=== PATIENT | female | born 1935 | race Caucasian/White ===

== ENCOUNTER 2022-09-06 14:32 | Observation (INO) | payer OTHER ==
--- OUTSIDE RECORDS SUMMARY | 2022-09-06 14:35 | XMS REPORT | Continuity of Care Document ---
:1935 Author Organization [facility] t Address 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 00:00: Hospita disease of disease of 00 l table mountain table mountain coronary 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 Bradycardi Bradycardi Disease Active M ethodi a a 01-07 st 00:00: Hospita 00 l Allergies, Adverse Reactions, Alerts Allergy Allergy Status Severity Reaction(s) Onset Inactive Treating Comm ents Source Name Type Date Date Clinician Amlodipi Propensi Active Swelling Meth lore ne ty to 01-07 st adverse 00:00: Hospita reaction 00 l s to drug Furosemi Propensi Active Other (See cramps Me thodi de ty to Comments) 01-07 st adverse 00:00: Hospita reaction 00 l s to drug Ezetimib Propensi Active Other (See Joint Me thodi e-Simvas ty to Comments) 01-[address] tatin adverse 00:00: cramping Hospita reaction 00 l s to drug Ezetimib Propensi Active Other (See Leg Me thodi e ty to Comments) 3-[address] adverse 00:00: Hospita reaction 00 l s to drug Simvasta Propensi Active Other (See Leg Me thodi tin ty to Comments) 3-[address] adverse 00:00: Hospita reaction 00 l s to drug Family History Family Member Diagnosis Comments Start Date Stop Date Source Natural brother Diabetes [facility] Natural father Heart attack [facility] father Heart disease [facility] Maternal grandfather No Known Problems [facility] Maternal grandmother No Known Problems [facility] Natural mother No Known Problems Met [facility] Paternal grandfather No Known Problems [facility] Paternal grandmother No Known Problems [facility] Natural sister Diabetes [facility] son Heart failure [facility] son Hyperlipidemia [facility] son Hypertension [facility] son Sleep apnea [facility] Social History Social Habit Start Date Stop Date Quantity Comments Source Tobacco use and 2022-08-12 2022-08-12 Smokeless tobacco [facility] exposure 00:00:00 00:00:00 non-user Hospital Alcohol intake 2022-08-12 2022-08-12 Lifetime [employer] 00:00:00 00:00:00 non-drinker Hospital (finding) Sex Ass[birth year] At [birth year] [employer] 00:00:00 00:00:00 Hospital Smoking Status Start Date Stop Date Source Never smoked tobacco [employer] ospital Medications Ordered Filled Start Stop Current Ordering Indication Dosage Frequency Signature Comments Components Source Medication Medication Date Date Medication? Clinician (SIG) Name Name doxazosin 2021-10 Yes [id number] 2mg QD Take 1 Me thodi (CARDURA) 2 1-07 tablet (2 st MG tablet 00:00: mg total) Hos lizzy 00 by mouth l nightly. vit 2021-10- No 1{capsu Q.5D Take 1 Methodi C/E/Zn/danuta 10-12 le} capsule by s t r/lutein/ze 14:15: 00:00 mouth 2 Ho spita axan 21 :00 (two) l (PRESERVISI times a ON AREDS-2 day. ORAL) ZINC 2021-10- No 1{tbl} QD Take 1 Methodi ACETATE 10-[address] ORAL 14:15: 00:00 mouth Hospita 21 :00 daily. l ferrous 2021-10- No 1{tbl} QD Take 1 Metho di fumarate 10-[address] 324 mg (106 14:15: 00:00 mouth [facility] mg iron) 14 :00 daily. l tablet calcium 2021-10- No 1{tbl} Q.5D Take 1 Metho di carb,gluc/m 10-[address] ag ox,gluc 14:15: 00:00 mouth 2 Hos lizzy (CALCIUM 10 :00 (two) l MAGNESIUM times a ORAL) day. acetaminoph 2021-10- No 500mg Take 500 Methodi en 10-[address] (TYLENOL) 14:15: 00:00 mouth as Hos lizzy 500 MG 07 :00 needed for l tablet mild pain. nitroglycer 2021-[address] 0.4 M ethodi in 10-[address] (NITROSTAT) 13:57: the tongue Hospita 0.4 MG SL 43 every 5 l tablet (five) minutes as needed. Not to exceed 3 doses in 15min. levothyroxi 2021-10 Yes 150ug QD Take 150 M ethodi ne 10-[address] (SYNTHROID) 13:57: mouth Hospi ta 150 mcg 43 every l tablet morning. dapaglifloz 2021-10 Yes QD Take by Met dodson in 10-[address] (Farxiga) 13:57: daily. Hospit a 10 mg 43 l tablet iron 2021-10 Yes Take by Methodi fum/vit 10-[address] C/ascorbate 13:57: Hospit a sod (IRON 43 l PLUS VITAMIN C ORAL) torsemide 2021-10 Yes [id number] 40mg QD Take 40 mg Methodi 40 mg 10-[address] tablet 00:00: daily. Hospita 00 Takes l 1/2(10) tablet torsemide 2021-10- No [id number] 20mg Q.5D Take 1 M ethodi (DEMADEX) 10-12 tablet (20 st 20 MG 00:00: 00:00 mg total) Hospit a tablet 00 :00 by mouth 2 l (two) times a day. Takes 1/2(10) tablet olmesartan No 40mg QD Take 40 mg Methodi (BENICAR) 6-11 17-[address] 40 MG 17:07: 00:00 daily. Hospita tablet 15 :00 l olmesartan Yes TAKE 1 Metho di (BENICAR) 03-[address] 40 MG 00:00: MOUTH ONCE Hospit a tablet 00 DAILY l doxazosin 2021- No [id number] TAKE 1 M ethodi (CARDURA) 2 5-20 -[address] MG tablet 00:00: 00:00 MOUTH ONCE H ospita 00 :00 NIGHTLY l BEFORE BED hydrALAZINE Yes [id number] TAKE 1 Methodi (APRESOLINE 4-[address] ) 50 MG 00:00: MOUTH 3 Hospita tablet 00 TIMES l DAILY rosuvastati Yes [id number] 5mg Q.5W Take 1 Methodi n (CRESTOR) 3-31 tablet (5 st 5 mg tablet 00:00: mg total) H ospita 00 by mouth 2 l (two) times a week. aspirin No 81mg QD Take 81 mg Met hodi (ECOTRIN) 01-[address] 81 MG 12:14: 00:00 daily. Hospita enteric 34 :00 l coated tablet torsemide No 10mg Take 10 mg M ethodi (DEMADEX) 01-[address] 20 MG 12:14: 00:00 take as Hospita tablet 34 :00 directed. l Takes 1/2(10) tablet clonIDINE No .1mg Q4H Take 0.1 Met hodi (CATAPRES) 01-07-[address] 0.1 MG 12:14: 00:00 mouth Hospita tablet 34 :00 every 4 l (four) hours as needed. For SBP>180 doxazosin 2021- No 2mg QD Take 2 mg Me thodi (CARDURA) 2 01-07- by mouth st MG tablet 12:14: 00:00 nightly. Hos lizzy 34 :00 l rosuvastati 2021- No 5mg Q.5W Take 5 mg Methodi n (CRESTOR) 01-07 by mouth 2 s t 5 mg tablet 12:14: 00:00 (two) [facility] 34 :00 times a l week. hydrALAZINE 2021- No 50mg Q.[id number] Take 50 mg Methodi (APRESOLINE 01-07 [id number] by mouth 3 st ) 50 MG 12:14: 00:00 3D (three) Hospit a tablet 34 :00 times a l day. iron,carb/v 2021- No 1{tbl} QD Take 1 M ethodi it C/vit 01-[address] B12/folic 11:51: 00:00 mouth Hospit a (IRON 100 12 :00 daily. l PLUS ORAL) levothyroxi 2021- No 125ug QD Take 125 Methodi ne 01-[address] (SYNTHROID) 11:51: 00:00 mouth [facility] 125 mcg 12 :00 daily. l tablet coenzyme No 200mg QD Take 200 Met hodi Q10 200 mg 01-[address] capsule 11:51: 00:00 mouth Hospita 12 :00 daily. l ascorbic 2021- No 1000mg QD Take 1,000 Methodi acid, 01-[address] vitamin C, 11:51: 00:00 mouth Hospi ta (VITAMIN C) 12 :00 daily. l 1000 MG tablet ibuprofen 2021- No 200mg Q6H Take 200 Me thodi (ADVIL) 200 01-[address] MG tablet 11:51: 00:00 mouth Hospit a 12 :00 every 6 l (six) hours as needed. aspirin Yes [id number] 81mg QD Take 1 Met hodi (ECOTRIN) - tablet (81 st 81 MG 00:00: mg total) Hospita enteric 00 by mouth l coated daily. tablet clonIDINE Yes [id number] .1mg Q4H Take 1 Me thodi (CATAPRES) -[address] 0.1 MG 00:00: (0.1 mg Hospita tablet 00 total) by l mouth every 4 (four) hours as needed (htn). For SBP>180 torsemide No [id number] 10mg Take 0.5 Methodi (DEMADEX) 01-[address] 20 MG 00:00: 00:00 (10 mg Hospita tablet 00 :00 total) by l mouth take as directed (s). Takes 1/2(10) tablet doxazosin No [id number] 2mg QD Take 1 M ethodi (CARDURA) 2 01-07 05-20 tablet (2 st MG tablet 00:00: 00:00 mg total) Ho spita 00 :00 by mouth l nightly. hydrALAZINE [id number] 50mg Q.[id number] Take 1 Methodi (APRESOLINE 01-07 [id number] tablet (50 st ) 50 MG 00:00: 00:00 3D mg total) [facility] tablet 00 :00 by mouth 3 l (three) times a day. Vital Signs Vital Name Observation Time Observation Value Comments Source Systolic blood 2022-08-12 18:50:00 175 mm[Hg] [facility] pressure Diastolic blood 2022-08-12 18:50:00 66 mm[Hg] [facility] pressure Heart rate 2022-08-12 18:50:00 98 /min [facility] Body height 2022-08-12 18:50:00 165.1 cm [facility] Body weight 2022-08-12 18:50:00 71.668 kg [facility] BMI 2022-08-12 18:50:00 26.29 kg/m2 [facility] Oxygen saturation in 2022-08-12 18:50:00 98 /min [facility] Arterial blood by Pulse oximetry Respiratory rate 2022-01-07 16:51:00 12 /min [facility] Procedures Procedure Date / Time Performed Performing Clinician [facility] e ECG 12-LEAD 2022-01-07 16:55:00 John Blackburn [facility] Plan of Care Planned Activity Planned Date Details Comments Source Future Scheduled 2022-08-18 65+ PNEUMOCOCCAL [facility] Test 15:02:15 VACCINE (1 - PCV) [code = 65+ PNEUMOCOCCAL VACCINE (1 - PCV)] Future Scheduled 2022-08-18 SHINGLES VACCINES (1 Met [facility] Test 15:02:15 of 2) [code = SHINGLES VACCINES (1 of 2)] Future Scheduled 2022-08-18 INFLUENZA VACCINE Method [facility] Test 15:02:15 [code = INFLUENZA VACCINE] Future Scheduled 2022-08-18 HEPATITIS B VACCINES Met [facility] Test 15:02:15 (1 of 3 - 3-dose series) [code = HEPATITIS B VACCINES (1 of 3 - 3-dose series)] Future Scheduled 2022-08-18 COVID-19 VACCINE (#1) [facility] Test 15:02:15 [code = COVID-19 VACCINE (#1)] Encounters Start End Encounter Admission Attending Care Care Encounter Source Date/Time Date/Time Type Type Clinicians Facility Department ID 2022-08-18 2022-08-18 Refill [place], 1.2.840.1 [id number] Methodi 00:00:00 00:00:[address] 3.430.2.7 Hospit a .3.567705 l .8 2022-08-18 2022-08-18 Reflenore Arzate 1.2.840.1 [id number] Methodi 00:00:00 00:00:00 Jackelyn Islas [address] 3.430.2.7 Hospit a .3.052978 l .8 2022-08-13 2022-08-13 Telephone Alexey, 1.2.840.1 [id number] Methodi 00:00:00 00:00:00 John Prado 17176.1.[address] 3.430.2.7 Hospit a .3.168553 l .8 2022-08-12 2022-08-12 Office [place], 1.2.840.1 [id number] 2100 [id number] Methodi 13:40:00 14:28:32 Visit John Prado 27312.1.[address] 3.430.2.7 Hospit a .3.292716 l .8 2022-08-12 2022-08-12 Travel 1.2.840.1 1.2.105.080 [id number] Methodi 00:00:00 00:00:[address] 3.430.2.7 0.2.7.3.698 Ho spita .3.680368 084.8 l .8 2022-08-12 2022-08-12 Outpatient YOUNIS, [facility] [id number] 00:00:00 00:00:[address] JOHN [address] 2022-07-14 2022-07-14 Travel 1.2.840.1 1.2.804.233 [id number] Methodi 00:00:00 00:00:[address] 3.430.2.7 0.2.7.3.698 Ho spita .3.191730 084.8 l .8 2022-03-13 2022-03-13 Refill Younis, 1.2.840.1 [id number] 2099 [id number] Methodi 00:00:00 00:00:00 John Prado 72552.1.[address] 3.430.2.7 Hospit a .3.032247 l .8 2022-02-28 2022-02-28 Refill Younis, 1.2.840.1 [id number] 2099 [id number] Methodi 00:00:00 00:00:00 John Prado 30960.1.[address] 3.430.2.7 Hospit a .3.196149 l .8 2022-01-20 2022-01-20 Refill Younis, 1.2.840.1 [id number] Methodi 00:00:00 00:00:00 John Prado 61351.1.[address] 3.430.2.7 Hospit a .3.932386 l .8 2022-01-07 2022-01-07 Office Younis, 1.2.840.1 [id number] Methodi 10:50:00 12:23:19 Visit John Prado 69495.1.[address] 3.430.2.7 Hospit a .3.146495 l .8 2022-01-07 2022-01-07 [facility] [id number] 00:00:00 00:00:00 JOHN [address] 2022-01-06 2022-01-06 Travel 1.2.840.1 1.2.856.602 [id number] Methodi 00:00:00 00:00:[address] 3.430.2.7 0.2.7.3.698 [facility] .3.946748 084.8 l .8 2021-05-09 2021-05-09 Outpatient [facility] [id number] 00:00:00 00:00:00 JOHN [address] Results This patient has no known results.
[2022-09-06 15:05] LABS: Absolute Lymphocytes (CBC) 1.3 K/uL (0.7-4.9); Hematocrit 33.5 % (36.0-45.0); Lymphocytes % 12.6 % (15.3-44.8); MCV 80.7 fL (80-100); RBC Red Blood Cell Count 4.15 M/uL (3.86-4.86)
[2022-09-06 15:23] LABS: Magnesium 2.2 mg/dL (1.8-2.4); Potassium 4.5 mmol/L (3.5-5.1); Troponin High Sensitivity 32.8 pg/mL (<58.9)
--- NOTE | 2022-09-06 15:36 | RAD REPORT ---
EXAM DESCRIPTION: RAD - Chest Single View - 09/06/2022 3:13 pm CLINICAL HISTORY: generalized weakness COMPARISON: Chest Pa And Lat (2 Views) dated 09/12/2019; Chest Pa And Lat (2 Views) dated 02/23/2019; CHEST PA AND LAT 2 VIEW dated 08/26/2010; CHEST PA AND LAT 2 VIEW dated 03/10/2007 FINDINGS: Lines: None. Lungs: No evidence of edema or pneumonia. Pleural: No significant pleural effusions or pneumothorax. Cardiac: The heart size is within normal limits. Mediastinum: Within normal limits. Bones: No acute fractures. Sternotomy. Other: None IMPRESSION: No acute cardiopulmonary disease.
--- NOTE | 2022-09-06 15:36 | RAD REPORT ---
EXAM DESCRIPTION: RAD - Knee Left 2 View - 09/06/2022 3:13 pm CLINICAL HISTORY: Swelling COMPARISON: No comparisons FINDINGS/IMPRESSION: No acute fracture. No malalignment. Moderate medial compartment narrowing. Mild patellofemoral compartment spurring. Soft tissue swelling along the ventral aspect of the knee.
--- NOTE | 2022-09-06 15:53 | RAD REPORT ---
EXAM DESCRIPTION: CT - CTHCSPWOC - 09/06/2022 3:42 pm CLINICAL HISTORY: Trauma, head and neck injury. Fall COMPARISON: <Comparisons> TECHNIQUE: Axial 5 mm thick images of the head were obtained. Axial 2 mm thick images of the cervical spine were obtained with sagittal and coronal reconstruction images generated and reviewed. All CT scans are performed using dose optimization technique as appropriate and may include automated exposure control or mA/KV adjustment according to patient size. FINDINGS: CT HEAD WITHOUT CONTRAST: No acute hemorrhage or extra-axial collection is identified.No areas of brain edema or midline shift. Ventriculomegaly. Small remote appearing left cerebellar infarct. Mucous retention cyst in the right maxillary sinus.The calvarium is intact. CT CERVICAL SPINE WITHOUT CONTRAST: No fracture or subluxation.No prevertebral soft tissues swelling is identified. Multilevel degenerati ve changes are present in the spine. Varying degrees of neural foraminal narrowing noted. IMPRESSION: No acute intracranial or cervical spine findings. Ventriculomegaly. This is somewhat out of proportion to the degree of cerebral atrophy. If any prior imaging is available for comparison, this would be helpful. Otherwise, normal pressure hydrocephalus is a consideration.
--- NOTE | 2022-09-06 16:59 | EDPHYS ---
Physician Documentation [facility] Name: Corina Hernandez Age: 86 yrs Sex: Female : 1935 Arrival Date: 09/06/2022 Time: 14:40 Bed 20 Private MD: ED Physician Jared Castellanos HPI: 09/06 15:24 This 86 yrs old Female presents to ER via EMS with complaints of General Weakness. ms3 15:24 Details of fall: The patient fell from an upright position, while standing. Onset: The ms3 symptoms/episode began/occurred 45 minute(s) ago. Associated injuries: The patient sustained left knee, contusion, swelling. Severity of symptoms: At their worst the symptoms were moderate, in the emergency department the symptoms are unchanged. Patient presents via [facility]EMS s/p fall x 2 today. Patient was on the floor for 45 min s/p last fall.. Historical: - Allergies: 15:00 Codeine; jl7 - PMHx: 15:00 Congestive heart failure; Hypothyroidism; Hypertensive disorder; jl7 - PSHx: 15:00 Coronary artery bypass graft; jl7 - Immunization history:: Client reports receiving the 2nd dose of the Covid vaccine. - Social history:: Smoking status: Patient denies any tobacco usage or history of. ROS: 15:24 Constitutional: Negative for fever, and chills. Neck: Negative for injury, pain, and ms3 swelling, Cardiovascular: Negative for chest pain, and palpitations. Respiratory: Negative for shortness of breath, cough, wheezing, and pleuritic chest pain, Abdomen/GI: Negative for abdominal pain, nausea, vomiting, diarrhea, and constipation. 15:24 MS/extremity: Positive for contusion, swelling, tenderness. 15:24 Skin: 15:24 All other systems are negative. Exam: 14:41 ECG was reviewed by the Attending Physician. ms3 15:24 Constitutional: This is a well developed, well nourished patient who is awake, alert, ms3 and in no acute distress. Head/Face: Normocephalic, atraumatic. Neck: Trachea midline, no cervical lymphadenopathy. Supple, full range of motion without nuchal rigidity, or vertebral point tenderness. No Meningismus. Chest/axilla: Normal chest wall appearance and motion. Nontender with no deformity. Cardiovascular: Regular rate and rhythm with a normal S1 and S2. No gallops, murmurs, or rubs. Normal PMI, no JVD. No pulse deficits. Respiratory: Lungs have equal breath sounds bilaterally, clear to auscultation and percussion. No rales, rhonchi or wheezes noted. No increased work of breathing, no retractions or nasal flaring. Abdomen/GI: Soft, non-tender, with normal bowel sounds. No distension or tympany. No guarding or rebound. No evidence of tenderness throughout. Skin: Warm, dry with normal turgor. Normal color with no rashes, no lesions, and no evidence of cellulitis. 15:24 Musculoskeletal/extremity: Extremities: noted in the left knee: contusion, ecchymosis, swelling, tenderness. Vital Signs: 14:49 BP 171 / 62; Pulse 60; Resp 15; Temp 98.3; Pulse Ox 100% ; Weight 71.67 kg (M); Pain jl7 6/10; 15:58 BP 159 / 49; Pulse 58; Resp 16; Pulse Ox 95% ; bp 17:00 BP 169 / 59; Pulse 57; Resp 17; Pulse Ox 97% ; bp 18:00 BP 162 / 50; Pulse 58; Resp 17; Pulse Ox 95% ; bp 20:30 BP 151 / 44; Pulse 62; Resp 17; Pulse Ox 94% on R/A; ha1 MDM: 14:55 Patient medically screened. ms3 15:24 Differential diagnosis: abrasion, closed head injury, contusion, fracture, sprain, ms3 strain. 16:31 Data reviewed: vital signs, nurses notes, lab test result(s), EKG, radiologic studies, ms3 and as a result, I will admit patient. Data interpreted: threat monitoring analyst: rate is 59 beats/min, rhythm is normal sinus rhythm, regular, with no ectopy, Interpretation: normal rate, normal rhythm. Counseling: I had a detailed discussion with the patient and/or guardian regarding: the historical points, exam findings, and any diagnostic results supporting the discharge/admit diagnosis, lab results, radiology results, the need for further work-up and treatment in the hospital. ED course: Discussed case with Dr. Yadav and accepts patient as observation. He would like patient placed on telemetry. Discussed plan with patient and she understands and agrees with plan.. 09/06 14:45 Order name: Basic Metabolic Panel; Complete Time: 15:36 ms3 09/06 14:45 Order name: CBC with Diff; Complete Time: 15:36 ms3 09/06 14:45 Order name: Magnesium; Complete Time: 15:36 ms3 09/06 14:45 Order name: Troponin HS; Complete Time: 15:36 ms3 09/06 16:59 Order name: SARS RAPID ms3 09/06 17:10 Order name: Basic Metabolic Panel EDMS 09/06 14:45 Order name: XRAY Chest (1 view); Complete Time: 16:28 ms3 09/06 17:10 Order name: Basic Metabolic Panel EDMS 09/06 17:10 Order name: CBC with Automated Diff EDMS 09/06 17:10 Order name: CBC with Automated Diff EDMS 09/06 17:20 Order name: SARS RAPID kj1 09/06 17:28 Order name: Urinalysis ms3 09/06 17:31 Order name: SARS-COV-2 Antigen Rapid EDMS 09/06 19:49 Order name: Urine Dipstick-Ancillary EDMS 09/06 14:45 Order name: EKG; Complete Time: 14:45 ms3 09/06 14:45 Order name: Cardiac monitoring; Complete Time: 14:46 ms3 09/06 14:45 Order name: EKG - Nurse/Tech; Complete Time: 14:46 ms3 09/06 14:45 Order name: IV Saline Lock; Complete Time: 14:49 ms3 09/06 14:45 Order name: Labs collected and sent; Complete Time: 14:56 ms3 09/06 14:45 Order name: O2 Per Protocol; Complete Time: 14:46 ms3 09/06 14:45 Order name: O2 Sat Monitoring; Complete Time: 14:46 ms3 09/06 14:49 Order name: XRAY Knee LEFT 2 view; Complete Time: 16:28 jl7 09/06 15:28 Order name: Head C Spine Mpr Wo Con; Complete Time: 16:28 EDMS 09/06 17:10 Order name: Regular EDMS 09/06 17:28 Order name: Urine Dipstick-Ancillary (obtain specimen); Complete Time: 19:50 ms3 EC:41 Rate is 62 beats/min. Rhythm is regular. QRS [place] is Normal. MA interval is normal. QRS ms3 interval is normal. Clinical impression: NSR w/ Non-specific ST/T Changes and with RBBB. Interpreted by me. Reviewed by me. Administered Medications: No medications were administered Disposition Summary: 09/06/22 16:58 Hospitalization Ordered Hospitalization Status: Observation ms3 Provider: Riaz Yadav ms3 Condition: Stable ms3 Problem: new ms3 Symptoms: are unchanged ms3 Bed/Room Type: Standard ms3 Location: Telemetry/MedSurg (observation)(09/06/22 18:55) kj1 Room Assignment: 404(09/06/22 23:18) Diagnosis - Fall on same level, unspecified ms3 - Contusion of left knee ms3 - Muscle weakness (generalized) ms3 - Anemia, unspecified ms3 Forms: - Medication Reconciliation Form ms3 - SBAR form ms3 Signatures: Dispatcher [employer] EDMS Yane Stuart, RN RN cg Mariam Altman RN RN jl7 Jyoti Smith kj1 Jared Castellanos DO DO ms3 Corrections: (The following items were deleted from the chart) 18:15 14:48 Extrem Venous W Compression Reginald+US.RAD.BRZ ordered. EDMS EDMS 18:53 16:58 Telemetry/MedSurg (observation) ms3 kj1 18:53 16:58 ms3 kj1 18:55 18:53 [facility] ER HOLD kj1 kj1 18:55 18:53 kj1 kj1 23:18 18:55 kj1 cg
--- NOTE | 2022-09-06 16:59 | ER ---
Nurse's Notes [facility] Name: Corina Hernandez Age: 86 yrs Sex: Female : 1935 Arrival Date: 09/06/2022 Time: 14:40 Bed 20 Private MD: Diagnosis: Fall on same level, unspecified;Contusion of left knee;Muscle weakness (generalized);Anemia, unspecified Presentation: 09/06 14:49 Chief complaint: EMS states: Toned out for general weakness, pt has fallen twice today jl7 from feeling weak. C/O pain to left knee; swelling and bruising noted. EKG in route noted to be abnormal, pt denies CP, denies shortness of breath. Coronavirus screen: Vaccine status: Patient reports receiving the 2nd dose of the covid vaccine. At this time, the client does not indicate any symptoms associated with coronavirus-19. Ebola Screen: No symptoms or risks identified at this time. Initial Sepsis Screen: Does the patient meet any 2 criteria? No. Patient's initial sepsis screen is negative. Does the patient have a suspected source of infection? No. Patient's initial sepsis screen is negative. Risk Assessment: Do you want to hurt yourself or someone else? Patient reports no desire to harm self or others. Onset of symptoms is unknown. Care prior to arrival: IV initiated. 18 GA, in the right antecubital area, Glucose check: 151. 14:49 Method Of Arrival: EMS: [facility] jl7 14:49 Acuity: MARLINE 2 jl7 Triage Assessment: 15:00 General: Appears in no apparent distress. uncomfortable, Behavior is calm, cooperative, jl7 appropriate for age. Pain: Complains of pain in left knee Pain currently is 6 out of 10 on a pain scale. Neuro: Level of Consciousness is awake, alert, obeys commands, Oriented to person, place, time, situation. Cardiovascular: Patient's skin is warm and dry. Historical: - Allergies: 15:00 Codeine; jl7 - PMHx: 15:00 Congestive heart failure; Hypothyroidism; Hypertensive disorder; jl7 - PSHx: 15:00 Coronary artery bypass graft; jl7 - Immunization history:: Client reports receiving the 2nd dose of the Covid vaccine. - Social history:: Smoking status: Patient denies any tobacco usage or history of. Screenin:01 Abuse screen: Denies threats or abuse. Denies injuries from another. Nutritional bp screening: No deficits noted. Tuberculosis screening: No symptoms or risk factors identified. Fall Risk None identified. Assessment: 16:01 General: SEE TRIAGE NOTE. bp 17:07 Reassessment: PER PCP DR ENRIQUEZ, ADMIT INITIATED. bp 17:54 Reassessment: DAUGHTER: AVANI MCCARTY [phone]. bp 18:00 Reassessment: No changes from previously documented assessment. Patient and/or family bp updated on plan of care and expected duration. Pain level reassessed. ADMIT IN PROCESS. 19:30 General: Appears comfortable, Behavior is calm, cooperative. Pain: Complains of pain in ha1 left knee Pain does not radiate. Pain currently is 4 out of 10 on a pain scale. Quality of pain is described as tender, throbbing, Alleviated by medications, rest. Neuro: Level of Consciousness is awake, alert, obeys commands, Oriented to person, place, time, situation, Reports weakness generalized. Cardiovascular: Capillary refill Patient's skin is warm and dry. Rhythm is sinus rhythm. Respiratory: Airway is patent Trachea midline Respiratory effort is even, unlabored, Respiratory pattern is regular, symmetrical. GI: Abdomen is flat, non-distended, Bowel sounds present X 4 quads. Reports vomiting. : Urine is clear. EENT: No deficits noted. No signs and/or symptoms were reported regarding the EENT system. Derm: Bruising that is on left knee Reports falling at home today. Musculoskeletal: Circulation, motion, and sensation intact. Swelling present in left knee. 20:38 Reassessment: Patient and/or family updated on plan of care and expected duration. Pain ha1 level reassessed. Patient is alert, oriented x 3, equal unlabored respirations, skin warm/dry/pink. pain 5/10. Vital Signs: 14:49 BP 171 / 62; Pulse 60; Resp 15; Temp 98.3; Pulse Ox 100% ; Weight 71.67 kg (M); Pain jl7 6/10; 15:58 BP 159 / 49; Pulse 58; Resp 16; Pulse Ox 95% ; bp 17:00 BP 169 / 59; Pulse 57; Resp 17; Pulse Ox 97% ; bp 18:00 BP 162 / 50; Pulse 58; Resp 17; Pulse Ox 95% ; bp 20:30 BP 151 / 44; Pulse 62; Resp 17; Pulse Ox 94% on R/A; 1 ED Course: 14:40 Patient arrived in ED. ms3 14:40 Jared Castellanos DO is Attending Physician. ms3 14:53 Patient has correct armband on for positive identification. Placed in gown. Bed in low mm9 position. Call light in reach. Side rails up X2. Warm blanket given. insurance claim representative on. Pulse ox on. NIBP on. 14:53 EKG done, by ED staff, reviewed by Jared Castellanos DO. mm9 14:54 Reyes Myles, RN is Primary Nurse. bp 14:56 Basic Metabolic Panel Sent. zm 14:56 CBC with Diff Sent. zm 14:57 Magnesium Sent. zm 14:57 Troponin HS Sent. zm 15:00 Triage completed. jl7 15:00 Arm band placed on right wrist. jl7 15:15 XRAY Chest (1 view) In Process Unspecified. EDMS 15:15 XRAY Knee LEFT 2 view In Process Unspecified. EDMS 15:44 Head C Spine Mpr Wo Con In Process Unspecified. EDMS 16:57 Riaz Enriquez MD is Hospitalizing Provider. ms3 19:50 Urinalysis Sent. ha1 19:51 SARS RAPID Sent. ha1 19:51 CBC with Automated Diff Sent. ha1 19:51 CBC with Automated Diff Sent. ha1 19:51 Basic Metabolic Panel Sent. ha1 19:51 Basic Metabolic Panel Sent. ha1 19:51 SARS RAPID Sent. [facility] 09/07 00:05 No provider procedures requiring assistance completed. Patient admitted, IV remains in ha1 place. [address] in place. put in by EMS. Administered Medications: No medications were administered Medication: 09/06 16:01 VIS not applicable for this client. bp Outcome: 16:58 Decision to Hospitalize by Provider. ms3 09/07 00:23 Admitted to Med/surg accompanied by tech, via wheelchair, room 404, Report called to max Aguilar RN Condition: stable 00:25 Patient left the ED. [facility] Signatures: Dispatcher [employer] EDMS Mariam Altman RN RN jl7 Peltier, Brian, RN RN bp Jared Castellanos DO DO ms3 Myla Walters Heidy, RN RN ha1 Romeo, Karla mm9
[2022-09-06] MEDS ORDERED: ACETAMINOPHEN 500 MG TAB PO PRN (17:07)
[2022-09-06] MEDS ORDERED: ONDANSETRON 4 MG/2 ML VIAL IV PRN (17:07)
[2022-09-06 17:45] LABS: SARS-CoV-2 Antigen Rapid Res Negative (Negative)
[2022-09-06 19:49] LABS: Urine Blood Negative (Negative); Urine Glucose 2+ (Negative); Urine Protein Negative (Negative)
[2022-09-06 20:02] LABS: Specific Gravity 1.015 (1.005-1.030); Urine Bilirubin NEGATIVE (Negative); Urine Blood Negative (Negative); Urine Clarity Clear (Clear); Urine Color Colorless (Yellow); Urine Glucose 4+ (Over) (Negative); Urine Mucus Slight /HPF (None Seen); Urine Protein TRACE (Negative); Urine RBC <5 /HPF (None Seen); Urine Urobilinogen Normal (Normal)
[2022-09-06] MEDS: ENOXAPARIN 30 MG/0.3 ML SQ SCH (21:00)
[2022-09-06] MEDS: cloNIDine HCL 0.1 MG TAB PO SCH (21:00)
[2022-09-06] MEDS ORDERED: ENOXAPARIN 40 MG/0.4 ML SQ SCH (21:00)
[2022-09-06] MEDS: HYDRALAZINE HCL 25 MG TABLET PO SCH (21:00)
[2022-09-06] MEDS ORDERED: cloNIDine HCL 0.1 MG TAB ONE (21:56)
[2022-09-06] MEDS ORDERED: HYDRALAZINE HCL 25 MG TABLET ONE (21:56)
[2022-09-06] MEDS ORDERED: ENOXAPARIN 40 MG/0.4 ML SQ ONE (21:57)
[2022-09-06] MEDS: TORSEMIDE 20 MG TAB PO SCH (22:30)
[2022-09-06] MEDS: ROSUVASTATIN 10 MG TAB PO SCH (22:30)
[2022-09-06] MEDS ORDERED: TORSEMIDE 20 MG TAB ONE (22:36)
[2022-09-06] MEDS ORDERED: ONDANSETRON 4 MG/2 ML VIAL ONE (22:58)
[2022-09-07 05:53] LABS: Absolute Lymphocytes (CBC) 1.5 K/uL (0.7-4.9); Hematocrit 31.3 % (36.0-45.0); Lymphocytes % 19.9 % (15.3-44.8); MCV 80.9 fL (80-100); MPV 8.3 fL (7.6-11.3); RBC Red Blood Cell Count 3.86 M/uL (3.86-4.86)
[2022-09-07 05:55] LABS: Potassium 4.3 mmol/L (3.5-5.1)
[2022-09-07] MEDS: LEVOTHYROXINE SOD 0.125 MG TAB PO SCH (06:19)
[2022-09-07] MEDS: TORSEMIDE 20 MG TAB PO SCH ×2 (09:00→21:57)
[2022-09-07] MEDS ORDERED: INFLUENZA VACCINE (for 6+ mo) 0.5 ML DOSE IMVAC ONE (09:00)
[2022-09-07] MEDS ORDERED: PNEUMOCOCCAL VACCINE 0.5 ML IMVAC ONE (09:00)
[2022-09-07] MEDS: VALSARTAN 160 MG TAB PO SCH (09:20)
[2022-09-07] MEDS: cloNIDine HCL 0.1 MG TAB PO SCH ×2 (09:21→21:00)
[2022-09-07] MEDS: ASPIRIN EC 81 MG TAB PO SCH (09:21)
[2022-09-07] MEDS: HYDRALAZINE HCL 25 MG TABLET PO SCH ×3 (09:21→21:00)
[2022-09-07] MEDS ORDERED: ACETAMINOPHEN 500 MG TAB PO PRN (11:19)
[2022-09-07] MEDS: ENOXAPARIN 30 MG/0.3 ML SQ SCH (21:58)
[2022-09-07] MEDS: ROSUVASTATIN 10 MG TAB PO SCH (21:58)
--- NOTE | 2022-09-07 22:10 | RAD REPORT ---
EXAM DESCRIPTION: USCarotid Artery Fkqitxnpg34/27/2022 9:49 pm CLINICAL HISTORY: syncope COMPARISON: None FINDINGS: The velocity of the right internal carotid artery equals 233 cm/sec. The right ICA/CCA rat io 2.2 The velocity of the left internal carotid artery equals 158 cm/sec. The left ICA/CCA ratio 1.6 Mild calcified plaque is present within the carotid arteries. The elevated velocities probably second jennifer to arteries being tortuous. The vertebral arteries demonstrate antegrade flow IMPRESSION: Mild plaque within the carotid arteries NASCET criteria used. Mild 0-49% stenosis Moderate 50-69% stenosis Severe 70-99% stenosis
[2022-09-07 23:27] VITALS: BMI 28.0
[2022-09-08] MEDS: LEVOTHYROXINE SOD 0.125 MG TAB PO SCH (06:17)
[2022-09-08] MEDS: HYDRALAZINE HCL 25 MG TABLET PO SCH ×3 (09:05→14:20)
[2022-09-08] MEDS: ASPIRIN EC 81 MG TAB PO SCH (09:05)
[2022-09-08] MEDS: cloNIDine HCL 0.1 MG TAB PO SCH (09:05)
[2022-09-08] MEDS: TORSEMIDE 20 MG TAB PO SCH (09:06)
[2022-09-08] MEDS: VALSARTAN 160 MG TAB PO SCH (09:06)
[2022-09-08 09:57] VITALS: O2SAT 94
--- NOTE | 2022-09-08 10:51 | HP ---
Date of Admission: 09/06/2022 Chief Complaint: Falling down. History Of Present Illness: This is an 86-year-old very pleasant female patient who lives at home wi th multiple chronic medical problems, comes into emergency room with 2 falls that happened yesterday. First time, she was trying to lean forward to get something from the floor, lost her balance and fe ll down, and called [facility] and EMS came out to assist her to get up. Second time, she fell down as she was trying to walk from her living room to the bedroom and as she went to the bedroom, she fel t like she was going to fall down, so she sat down at the edge of the bed and she ended up falling do wn from edge of the bed to the floor and after 1 hour of staying on the floor, she ended up calling E MS again. At this point, she was brought into emergency room. She is complaining of generalized sor eness and especially pain in her left knee where she has some bruising. She has some chronic back pa in that has not changed any. She denies any chest pain or shortness of breath or palpitation prior t o this episode. No recent febrile illness. No vomiting, diarrhea. Allergies: CODEINE MAKES HER PASS OUT. Medications: Aspirin 81 mg daily; clonidine 0.1 mg 2 times a day as needed for high blood pressure, which she has not taken it lately; Farxiga 10 mg daily; hydralazine 50 mg, she takes half a tablet 3 times a day; levothyroxine 150 mcg daily; olmesartan 40 mg daily; rosuvastatin 5 mg 2 times a week; t orsemide 20 mg 2 times a day; doxazosin 2 mg daily. Review of Systems: Musculoskeletal: As mentioned above. Constitutional: Generalized weakness. All other systems reviewed and negative. 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 The patient has been seeing bow stapler and target protection specialist in [place] and had some knee injections in the past, but it did not help much as she reports. Past Surgical History: Tonsillectomy, coronary artery bypass surgery, carotid artery endarterectomy on the left side, tubal ligation, hysterectomy, back surgery, knee surgery, foot surgery, and removal of lipoma. Family History: Father , had asthma and coronary artery disease. Mother , had gallbladder d isease. Brother had leukemia and sister had coronary artery disease. Social History: Prior history of smoking not at present time. Use of alcohol negative. Physical Examination: Vital Signs: This morning temperature 97.8, pulse 46, respiratory rate 16, blood pressure 140/48, ox ygen saturation 94%. Orthostatic vitals were checked today. Supine blood pressure 140/48, sitting b lood pressure was 134/60, and standing blood pressure 144/64. General: Awake, alert, oriented, not in distress. HEENT: Head atraumatic, normocephalic. Conjunctivae nonerythematous. Sclerae white. Mouth, no thr ush or edema noted. Ears/Nose, no mass, lesion, discharge noted. Neck: Supple. No JVD, lymph nodes, bruit, thyromegaly noted. Lungs: Bilateral good equal air entry. Clear to auscultation. No rhonchi. No rales. Heart: Normal heart sounds, no murmur or gallop. Abdomen: Soft, bowel sounds normal. No guarding, rigidity, tenderness, mass, hepatosplenomegaly, dis tention, or bruit noted. Skin: No rash, ulcer, cellulitis. Lymphatics: No lymph node enlargement in neck, supraclavicular, infraclavicular region. Neuro: No focal neurological deficit. Chest: Unremarkable. External Genitalia: Deferred. Rectal: Deferred. Musculoskeletal: Patient has mild swelling of bilateral knees and left knee has contusion present ov er the medial aspect. Laboratory Data: Yesterday; white count 10.5, hemoglobin 11.1, platelets 226. Today; white count 7. 6, hemoglobin 10.2, platelets 220. Yesterday; sodium 141, potassium 4.5, chloride 109, bicarb 24, BU N 36, creatinine 1.20, glucose 135. Troponin 32.8. This morning sodium 141, potassium 4.3, chloride 108, bicarb 27, BUN 33, creatinine 1.16, glucose 137. Urinalysis was negative. COVID-19 test negat carlos a. Chest x-ray, no acute cardiopulmonary changes. CAT scan of the head and cervical spine, no acu te intracranial or cervical spine findings. Left knee x-ray shows some evidence of arthritis. No fr acture. Impression: 1.Recurrent fall. 2.Generalized weakness. 3.Debility. 4.Osteoarthritic on multiple sites. 5.Coronary artery disease. 6.Carotid artery stenosis, left. 7.Hypertension. 8.Mixed hyperlipidemia. 9.Type 2 diabetes mellitus. 10.Chronic kidney disease, stage 3B. 11.Hypothyroidism. 12.Anemia, unspecified. Plan: The patient will be admitted to the hospital for further evaluation and management of this pro blem. For her hypertension, we will continue her antihypertensive medication per order. We will con tinue her statin therapy for hyperlipidemia. Continue her aspirin therapy on a daily basis. Her lev othyroxine will be continued for hypothyroidism. Considering her chronic kidney disease, I do not fe el comfortable her taking nonsteroidal anti-inflammatory medication because of possible renal side ef fect, so I have recommended her to take Tylenol 500 mg 3 times a day and also use topical Voltaren ge l 3 times a day to her knee. This particular medication is not available in the hospital, so she jason l have to use it on outpatient basis and hopefully she will be discharged to go home tomorrow. She w as encouraged to continue to follow up with her target protection specialist for further care for her knee a rthritis including some intra-articular steroid injections. I have recommended her to follow up with her bow stapler to try to get Holter monitor done to make sure that we do not have any significant pauses or any evidence of sick sinus syndrome and that can be managed on an elective outpatient basis and the patient's daughter will assist her with appointment with target protection specialist as well as wi th her bow stapler. I have discussed CAT scan finding also with the patient and informed her that w e need to rule out possibility of normal-pressure hydrocephalus and she will need to have a neurology consultation on an elective outpatient basis, and daughter will assist her with appointment with Dr. Gonzalez. I will go ahead and get a carotid Doppler done and MRI of lumbar spine and then our plan is to discharge her to go home. Details and plan of treatment were discussed with the patient and the danica putnam's daughter was present on the phone during my entire visit with the patient today. The patien t drinks at least 60 ounces of water a day and she was encouraged to continue to do so. WINDY/MODL Voice ID: [id number]
[2022-09-08 11:29] VITALS: BP 97/39; TEMP 97.8
--- NOTE | 2022-09-08 12:53 | EKG ---
Test Date: 2022-09-06 Test Time: 14:41:24 Recreation Program Specialist: CHRISTINA MEASUREMENT RESULTS: Intervals: Rate: 62 TN: 184 QRSD: 134 QT: 470 QTc: 477 Ruso: P: 40 TN: 184 QRS: 56 T: 76 INTERPRETIVE STATEMENTS: Sinus rhythm with marked sinus arrhythmia Right bundle branch block Abnormal ECG Compared to ECG 12/30/1993 15:27:00 Right bundle-branch block now present Sinus bradycardia no longer present Electronically Signed On 09-08-22 12:50:05 FISHER SWORDFISH by George Hernández
--- NOTE | 2022-09-08 17:31 | RAD REPORT ---
EXAM DESCRIPTION: MRI - Lumbar Spine Wo [facility] - 09/08/2022 4:27 pm CLINICAL HISTORY: Recurrent fall, osteoarthritis COMPARISON: None. TECHNIQUE: Sagittal T1-weighted, T2-weighted and T2-STIR weighted sequences were obtained. Axial T1 -weighted and heavily T2-weighted sequenceswere obtained through the lumbar disc levels. FINDINGS: Lumbar bodies are normal in height and alignment. No suspicious marrow signal. No paraspin al masses. Conus is normal with no clumping or thickening of the cauda equina. T12-L1 level: No significant findings. L1-2 level: No significant findings. L2-3 level: No significant findings. L3-4 level: Mild disc height loss and broad-based disc bulge with left greater than right facet and l igamentum flavum hypertrophy results in mild central spinal stenosis, moderate left neural foraminal narrowing, and mild right neural foraminal narrowing. L4-5 level: Mild broad-based disc bulge and ligamentum flavum facet hypertrophy results in mild bilat eral neural foraminal narrowing. No central spinal stenosis. L5-S1 level: Disc height loss with facet and ligamentum flavum hypertrophy without significant neural foraminal narrowing or central spinal stenosis. IMPRESSION: Mild degenerative disc disease without clinically significant central spinal stenosis id entified. Neural foraminal narrowing is mild except for at L3-4 on the left where there is moderate n arrowing. No fracture identified.
--- NOTE | 2022-09-09 07:12 | DS ---
Date of Discharge: 09/08/2022 Disposition: Discharged to go home. Physical Examination: HEENT: Unremarkable. Lungs: Clear to auscultation. Heart: Sounds normal. Abdomen: Soft. Bowel sounds normal. No guarding, rigidity, tenderness, or distention. Extremities: No leg edema. Laboratory Data: Results reviewed. Carotid Doppler shows mild plaquing, no evidence of hemodynamica lly significant stenotic lesion. Discharge Medications/instructions: 1.Continue all prior home medications. 2.Follow up at my office next week. 3.Follow up with brand sales manager this week or next week and patient to get Holter monitor done with her brand sales manager. Hospital Course: An 86-year-old female patient who came into emergency room with 2 falls on the day of admission. After she was evaluated in the emergency room, she was admitted to the hospital. Her workup done in the emergency room was unremarkable. The patient was admitted to the hospital. Ortho static vitals were checked and there was no evidence of any orthostatic hypotension. Carotid Doppler did not show any hemodynamically significant stenotic lesion. MRI of the lumbar spine was done susan dyson. I have informed the patient that we need to have her brand sales manager do Holter monitor to make sure she does not have any significant bradycardia or any kind of irregularities on her heart rhythm contr ibuting to this fall. Considering recurrent fall, I have also recommended home health care and home physical therapy and Social Service was consulted. The patient was discharged to go home today in st able condition. Final Diagnoses: 1.Recurrent falls. 2.Hypertension. 3.Coronary artery disease. 4.Hyperlipidemia. 5.Type 2 diabetes mellitus. WINDY/MODL Voice ID: [id number] Report ID: [id number]
== END 2022-09-08 18:35 | disposition home or self-care (01) ==
LOC: ER 14:32 → ERHOLD 17:06 → 4TH 23:39
PROVIDERS: ADMIT Internal Medicine; ATTEND Internal Medicine
DX: R53.1 Weakness (principal); Z91.81 History of falling; R53.81 Other malaise; M19.90 Unspecified osteoarthritis, unspecified site; I25.10 Atherosclerotic heart disease of native coronary artery without angina pectoris; E78.2 Mixed hyperlipidemia; E11.22 Type 2 diabetes mellitus with diabetic chronic kidney disease; I12.9 Hypertensive chronic kidney disease with stage 1 through stage 4 chronic kidney disease, or unspecified chronic kidney disease; N18.32 Chronic kidney disease, stage 3b; E03.9 Hypothyroidism, unspecified; D64.9 Anemia, unspecified; I65.22 Occlusion and stenosis of left carotid artery; Z20.822 Contact with and (suspected) exposure to COVID-19
CPT/HCPCS: 93005; 85025 ×2; 81001; 80048 ×2; 36415; 83735; 81003; 84484; 70450; 72125; 71045; 73560; 93880; 72148; 99285; 87811; J1650 ×2; J2405; G0378 ×4

== ENCOUNTER 2023-03-20 20:43 | Emergency (ER) | payer OTHER ==
--- OUTSIDE RECORDS SUMMARY | 2023-03-20 20:47 | XMS REPORT | Continuity of Care Document ---
:1935 Author Organization [facility] t Address [address] [facility] [facility] [facility]. 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 Bradycardi Bradycardi Disease Active M ethodi a a 01-07 00:00: Hospita 00 l Allergies, Adverse Reactions, Alerts Allergy Allergy Status Severity Reaction(s) Onset Inactive Treating Comm ents Source Name Type Date Date Clinician Hydrocod Propensi Active Other (See 2021-10 Me thodi one ty to Comments) 11-23 st adverse 00:00: Hospita reaction 00 l s to drug Amlodipi Propensi Active Swelling Meth lore ne ty to 01-07 st adverse 00:00: Hospita reaction 00 l s to drug Furosemi Propensi Active Other (See cramps Me thodi de ty to Comments) 01-07 st adverse 00:00: Hospita reaction 00 l s to drug Ezetimib Propensi Active Other (See Joint Me thodi e-Simvas ty to Comments) 3- pain and st tatin adverse 00:00: cramping Hospita reaction 00 l s to drug Ezetimib Propensi Active Other (See Leg Me thodi e ty to Comments) 3- cramps st adverse 00:00: Hospita reaction 00 l s to drug Simvasta Propensi Active Other (See Leg Me thodi tin ty to Comments) 3- cramping st adverse 00:00: Hospita reaction 00 l s to drug Codeine Propensi Active Other (See 2018-10 Met hodi ty to Comments) 11-07 st adverse 00:00: Hospita reaction 00 l s to drug Family History Family Member Diagnosis Comments Start Date Stop Date Source Natural brother Diabetes [facility] father Heart attack [facility] father Heart disease [facility] Natural sister Diabetes [facility] son Heart failure [facility] son Hyperlipidemia [facility] son Hypertension [facility] son Sleep apnea [facility] Maternal grandfather No Known Problems [facility] Maternal grandmother No Known Problems [facility] Natural mother No Known Problems [facility] Paternal grandfather No Known Problems [facility] Paternal grandmother No Known Problems [facility] Social History Social Habit Start Date Stop Date Quantity Comments Source Gender identity [facility] Sexual orientation Method t [facility] Alcohol intake 2023-02-10 2023-02-10 Lifetime Pentecostal 00:00:00 00:00:00 non-drinker Hospital (finding) History of Social 2023-02-10 2023-02-[address] function 00:00:00 00:00:00 Hospital Tobacco use and 2022-08-12 2022-08-12 Smokeless Pent[employer]al exposure 00:00:00 00:00:00 tobacco non-user Hospital Sex Assigned At [birth year] [facility] 00:00:00 00:00:00 Hospital Smoking Status Start Date Stop Date Source Never smoked tobacco [facility] Medications Ordered Filled Start Stop Current Ordering Indication Dosage Frequency Signature Comments Components Source Medication Medication Date Date Medication? Clinician (SIG) Name Name nitroglycer 2023-0 2023- No .4mg Place 0.4 Methodi in 02-16 05-[address] (NITROSTAT) 13:36: 00:00 the tongue Hospita 0.4 MG SL 33 :00 every 5 l tablet (five) minutes as needed. Not to exceed 3 doses in 15min. nitroglycer Yes .4mg Place 1 Met hodi in -[address] (NITROSTAT) 00:00: (0.4 mg Hos lizzy 0.4 MG SL 00 total) l tablet under the tongue every 5 (five) minutes as needed for chest pain. Not to exceed 3 doses in 15min. amIODarone Yes 200mg QD Take 1 Meth lore (PACERONE) 02-[address] 200 MG 00:00: (200 mg Hospita tablet 00 total) by l mouth daily. meclizine Yes 1{tbl} Take 1 Meth lore (ANTIVERT) 02-10 tablet (25 st 25 mg 14:15: mg total) Hospita tablet 36 by mouth l once as needed. vit Yes 1{tbl} Q.5D Take 1 Methodi C/E/Zn/danuta - tablet by st r/lutein/ze 14:15: mouth 2 Hos lizzy axan 36 (two) l (PRESERVISI times a ON AREDS-2 day. ORAL) melatonin 3 Yes 3mg QD Take 1 Meth lore mg tablet - tablet (3 st 14:15: mg total) Hospita 36 by mouth l nightly as needed for sleep. levothyroxi Yes 150ug QD Take 1 Met hodi ne - tablet st (SYNTHROID) 14:15: (150 mcg Ho spita 150 mcg 36 total) by l tablet mouth every morning. dapaglifloz 0 Yes QD Take by Met hodi in 5-[address] (FARXIGA) 14:15: daily. Hospit a 10 mg 36 l tablet iron Yes Take by Methodi fum/vit -[address] C/ascorbate 14:15: Hospit a sod (IRON 36 l PLUS VITAMIN C ORAL) torsemide 2022-0 2023- No 20mg Q.5D Take 1 Metho di (DEMADEX) 3-13 03-13 tablet (20 st 20 MG 10:29: 00:00 mg total) Hospit a tablet 54 :00 by mouth 2 l (two) times a day. torsemide 0 Yes 20mg Q.5D Take 1 Method i (DEMADEX) 3-13 tablet (20 st 20 MG 00:00: mg total) Hospita tablet 00 by mouth 2 l (two) times a day. doxazosin Yes [id number] TAKE 1 Me thodi (CARDURA) 2 2-20 TABLET(2 st MG tablet 00:00: MG) BY Hospit a 00 MOUTH l EVERY NIGHT olmesartan 0 Yes 40mg QD Take 1 Metho di (BENICAR) 1-23 tablet (40 st 40 MG 00:00: mg total) Hospita tablet 00 by mouth l daily. amIODarone 2022- No 200mg QD Take 1 Met hodi (PACERONE) 1-13 05-[address] 200 MG 00:00: 00:00 (200 mg Hospita tablet 00 :00 total) by l mouth daily. doxazosin 2021-10 Yes [id number] 2mg QD Take 1 Me thodi (CARDURA) 2 1-07 tablet (2 st MG tablet 00:00: mg total) Hos lizzy 00 by mouth l nightly. doxazosin 2021-10 No [id number] 2mg QD Take 1 M ethodi (CARDURA) 2 1-07 02-20 tablet (2 st MG tablet 00:00: 00:00 mg total) Ho spita 00 :00 by mouth l nightly. vit 2021-10- No 1{capsu Q.5D Take 1 Methodi C/E/Zn/danuta 10-12 le} capsule by s t r/lutein/ze 14:15: 00:00 mouth 2 Ho spita axan 21 :00 (two) l (PRESERVISI times a ON AREDS-2 day. ORAL) ZINC 2021-10- No 1{tbl} QD Take 1 Methodi ACETATE 10-[address] ORAL 14:15: 00:00 mouth Hospita 21 :00 daily. l vit 2021-10- No 1{capsu Q.5D Take 1 Methodi C/E/Zn/danuta 10-12 le} capsule by s t r/lutein/ze 14:15: 00:00 mouth 2 Ho spita axan 21 :00 (two) l (PRESERVISI times a ON AREDS-2 day. ORAL) ZINC 2021-10 1{tbl} QD Take 1 Methodi ACETATE 10-[address] ORAL 14:15: 00:00 mouth Hospita 21 :00 daily. l ferrous 2021-10 No 1{tbl} QD Take 1 Metho di fumarate 10-[address] 324 mg (106 14:15: 00:00 mouth [facility] mg iron) 14 :00 daily. l tablet ferrous 2021-10 1{tbl} QD Take 1 Metho di fumarate 10-[address] 324 mg (106 14:15: 00:00 mouth [facility] mg iron) 14 :00 daily. l tablet calcium 2021-10 No 1{tbl} Q.5D Take 1 Metho di carb,gluc/m 10-[address] ag ox,gluc 14:15: 00:00 mouth 2 Hos lizzy (CALCIUM 10 :00 (two) l MAGNESIUM times a ORAL) day. calcium 2021-10 No 1{tbl} Q.5D Take 1 Metho di carb,gluc/m 10-[address] ag ox,gluc 14:15: 00:00 mouth 2 Hos lizzy (CALCIUM 10 :00 (two) l MAGNESIUM times a ORAL) day. acetaminoph 2021-10 No 500mg Take 500 Methodi en 10-[address] (TYLENOL) 14:15: 00:00 mouth as Hos lizzy 500 MG 07 :00 needed for l tablet mild pain. acetaminoph 2021-10 No 500mg Take 500 Methodi en 10-[address] (TYLENOL) 14:15: 00:00 mouth as Hos lizzy 500 MG 07 :00 needed for l tablet mild pain. nitroglycer 2021-[address] 0.4 M ethodi in 1-[address] (NITROSTAT) 13:57: the tongue Hospita 0.4 MG SL 43 every 5 l tablet (five) minutes as needed. Not to exceed 3 doses in 15min. levothyroxi 2021-10 Yes 150ug QD Take 150 M ethodi ne 10-[address] (SYNTHROID) 13:57: mouth Hospi ta 150 mcg 43 every l tablet morning. dapaglifloz 2021-10 Yes QD Take by Met ivory in 10-[address] (Farxiga) 13:57: daily. Hospit a 10 mg 43 l tablet iron 2021-10 Yes Take by Methodi fum/vit 10-[address] C/ascorbate 13:57: Hospit a sod (IRON 43 l PLUS VITAMIN C ORAL) torsemide 2021-10 Yes [id number] 40mg QD Take 40 mg Methodi 40 mg 10-[address] tablet 00:00: daily. Hospita 00 Takes l 1/2(10) tablet torsemide 2021-10- No [id number] 40mg QD Take 40 mg Methodi 40 mg 10-[address] tablet 00:00: 00:00 daily. Hospita 00 :00 Takes l 1/2(10) tablet torsemide 2021-10- No [id number] 20mg Q.5D Take 1 M ethodi (DEMADEX) 10-12 tablet (20 st 20 MG 00:00: 00:00 mg total) Hospit a tablet 00 :00 by mouth 2 l (two) times a day. Takes 1/2(10) tablet torsemide 2021-10- No [id number] 20mg Q.5D Take 1 M ethodi (DEMADEX) 10-12 tablet (20 st 20 MG 00:00: 00:00 mg total) Hospit a tablet 00 :00 by mouth 2 l (two) times a day. Takes 1/2(10) tablet olmesartan 2021- No 40mg QD Take 40 mg Methodi (BENICAR) 03-[address] 40 MG 17:07: 00:00 daily. Hospita tablet 15 :00 l olmesartan Yes TAKE 1 Metho di (BENICAR) 03-[address] 40 MG 00:00: MOUTH ONCE Hospit a tablet 00 DAILY l olmesartan 2022- No TAKE 1 Meth lore (BENICAR) 03-[address] 40 MG 00:00: 00:00 MOUTH ONCE Hospi ta tablet 00 :00 DAILY l doxazosin 2021- No [id number] TAKE 1 M ethodi (CARDURA) 2 02-[address] MG tablet 00:00: 00:00 MOUTH ONCE H ospita 00 :00 NIGHTLY l BEFORE BED doxazosin 2021- No [id number] TAKE 1 M ethodi (CARDURA) 2 02-[address] MG tablet 00:00: 00:00 MOUTH ONCE H ospita 00 :00 NIGHTLY l BEFORE BED hydrALAZINE Yes [id number] TAKE 1 Methodi (APRESOLINE 4-[address] ) 50 MG 00:00: MOUTH 3 Hospita tablet 00 TIMES l DAILY hydrALAZINE Yes [id number] TAKE 1 Methodi (APRESOLINE 4-[address] ) 50 MG 00:00: MOUTH 3 Hospita tablet 00 TIMES l DAILY rosuvastati Yes [id number] 5mg Q.5W Take 1 Methodi n (CRESTOR) 3-31 tablet (5 st 5 mg tablet 00:00: mg total) H ospita 00 by mouth 2 l (two) times a week. rosuvastati Yes [id number] 5mg Q.5W Take 1 Methodi n (CRESTOR) 3-31 tablet (5 st 5 mg tablet 00:00: mg total) H ospita 00 by mouth 2 l (two) times a week. aspirin No 81mg QD Take 81 mg Met hodi (ECOTRIN) 01-[address] 81 MG 12:14: 00:00 daily. Hospita enteric 34 :00 l coated tablet torsemide 2021- No 10mg Take 10 mg M ethodi (DEMADEX) 01-[address] 20 MG 12:14: 00:00 take as Hospita tablet 34 :00 directed. l Takes 1/2(10) tablet clonIDINE 2021- No .1mg Q4H Take 0.1 Met hodi (CATAPRES) 01-07-[address] 0.1 MG 12:14: 00:00 mouth Hospita tablet 34 :00 every 4 l (four) hours as needed. For SBP>180 doxazosin 2021- No 2mg QD Take 2 mg Me thodi (CARDURA) 2 01-[address] MG tablet 12:14: 00:00 nightly. Hos lizzy 34 :00 l rosuvastati 2021- No 5mg Q.5W Take 5 mg Methodi n (CRESTOR) 01-07 by mouth 2 s t 5 mg tablet 12:14: 00:00 (two) [facility] 34 :00 times a l week. hydrALAZINE 2021- No 50mg Q.[id number] Take 50 mg Methodi (APRESOLINE 01-07 [id number] by mouth 3 st ) 50 MG [...] mcg 12 :00 daily. l tablet coenzyme 2021- No 200mg QD Take 200 Met hodi Q10 200 mg 01-[address] capsule 11:51: 00:00 mouth Hospita 12 :00 daily. l ascorbic 2021- No 1000mg QD Take 1,000 Methodi acid, 01-07- mg by st vitamin C, 11:51: 00:00 mouth Hospi ta (VITAMIN C) 12 :00 daily. l 1000 MG tablet ibuprofen 2021- No 200mg Q6H Take 200 Me thodi (ADVIL) 200 01-07- mg by st MG tablet 11:51: 00:00 mouth Hospit a 12 :00 every 6 l (six) hours as needed. aspirin Yes [id number] 81mg QD Take 1 Met hodi (ECOTRIN) - tablet (81 st 81 MG 00:00: mg total) Hospita enteric 00 by mouth l coated daily. tablet clonIDINE Yes [id number] .1mg Q4H Take 1 Me thodi (CATAPRES) 01-[address] 0.1 MG 00:00: (0.1 mg Hospita tablet 00 total) by l mouth every 4 (four) hours as needed (htn). For SBP>180 aspirin Yes [id number] 81mg QD Take 1 Met hodi (ECOTRIN) 01-07 tablet (81 st 81 MG 00:00: mg total) Hospita enteric 00 by mouth l coated daily. tablet clonIDINE Yes [id number] .1mg Q4H Take 1 Me thodi (CATAPRES) 01-[address] 0.1 MG 00:00: (0.1 mg Hospita tablet 00 total) by l mouth every 4 (four) hours as needed (htn). For SBP>180 torsemide 2021- No [id number] 10mg Take 0.5 Methodi (DEMADEX) 01-[address] 20 MG 00:00: 00:00 (10 mg Hospita tablet 00 :00 total) by l mouth take as directed (s). Takes 1/2(10) tablet torsemide 2021- No [id number] 10mg Take 0.5 Methodi (DEMADEX) 01-[address] 20 MG 00:00: 00:00 (10 mg Hospita tablet 00 :00 total) by l mouth take as directed (s). Takes 1/2(10) tablet doxazosin 2021- No [id number] 2mg QD Take 1 M ethodi (CARDURA) 2 01-07 05-20 tablet (2 st MG tablet 00:00: 00:00 mg total) Ho spita 00 :00 by mouth l nightly. hydrALAZINE 2021- No [id number] 50mg Q.[id number] Take 1 Methodi (APRESOLINE 01-07 04-11 [id number] tablet (50 st ) 50 MG 00:00: 00:00 3D mg total) [facility] tablet 00 :00 by mouth 3 l (three) times a day. Vital Signs Vital Name Observation Time Observation Value Comments Source Systolic blood 2023-02-10 19:10:00 152 mm[Hg] [facility] pressure Diastolic blood 2023-02-10 19:10:00 61 mm[Hg] [facility] pressure Heart rate 2023-02-10 19:10:00 52 /min [facility] Respiratory rate 2023-02-10 19:10:00 12 /min [facility] Body height 2023-02-10 19:10:00 165.1 cm [facility] Body weight 2023-02-10 19:10:00 71.668 kg [facility] BMI 2023-02-10 19:10:00 26.29 kg/m2 [facility] Oxygen saturation in 2022-09-22 20:59:00 97 /min [facility] Arterial blood by Pulse oximetry Body weight 2022-08-12 18:50:00 71.668 kg [facility] BMI 2022-08-12 18:50:00 26.29 kg/m2 [facility] Oxygen saturation in 2022-08-12 18:50:00 98 /min [facility] Arterial blood by Pulse oximetry Systolic blood 2022-08-12 18:50:00 175 mm[Hg] [facility] pressure Diastolic blood 2022-08-12 18:50:00 66 mm[Hg] [facility] pressure Heart rate 2022-08-12 18:50:00 98 /min [facility] Body height 2022-08-12 18:50:00 165.1 cm [facility] Respiratory rate 2022-01-07 16:51:00 12 /min [facility] Procedures Procedure Date / Time Performed Performing Clinician Sour e CV CARDIAC PET 2023-03-16 17:32:47 [facility] MYOCARDIAL PERFUSION IMAGING ECG 12-LEAD 2023-02-10 18:52:00 [facility] CV HOLTER MONITOR 48 2022-10-24 21:52:40 John Blackburn [facility] HOUR ECG 12-LEAD 2022-09-22 21:08:05 John Blackburn [facility] ECG 12-LEAD 2022-09-22 21:07:[address] [facility] ECG 12-LEAD 2022-01-07 16:55:[address] [facility] Plan of Care Planned Activity Planned Date Details Comments Source Future Scheduled 2023-03-20 COVID-19 VACCINE (#1) [facility] Test 11:43:07 [code = COVID-19 VACCINE (#1)] Future Scheduled 2023-03-20 65+ PNEUMOCOCCAL [facility] Test 11:43:07 VACCINE (1 - PCV) [code = 65+ PNEUMOCOCCAL VACCINE (1 - PCV)] Future Scheduled 2023-03-20 SHINGLES VACCINES (1 [facility] Test 11:43:07 of 2) [code = SHINGLES VACCINES (1 of 2)] Future Scheduled 2023-03-20 INFLUENZA VACCINE Method [facility] Test 11:43:07 [code = INFLUENZA VACCINE] Future Scheduled 2022-08-18 HEPATITIS B VACCINES [facility] Test 15:02:15 (1 of 3 - 3-dose series) [code = HEPATITIS B VACCINES (1 of 3 - 3-dose series)] Future Scheduled 2022-08-18 COVID-19 VACCINE (#1) [facility] Test 15:02:15 [code = COVID-19 VACCINE (#1)] Future Scheduled 2022-08-18 65+ PNEUMOCOCCAL [facility] Test 15:02:15 VACCINE (1 - PCV) [code = 65+ PNEUMOCOCCAL VACCINE (1 - PCV)] Future Scheduled 2022-08-18 SHINGLES VACCINES (1 [facility] Test 15:02:15 of 2) [code = SHINGLES VACCINES (1 of 2)] Future Scheduled 2022-08-18 INFLUENZA VACCINE Method [facility] Test 15:02:15 [code = INFLUENZA VACCINE] Encounters Start End Encounter Admission Attending Care Care Encounter Source Date/Time Date/Time Type Type Clinicians Facility Department ID 2023-03-17 2023-03-17 Travel 1.2.840.1 1.2.039.252 [id number] Methodi 00:00:00 00:00:[address] 3.430.2.7 0.2.7.3.698 Ho spita .3.817834 084.8 l .8 2023-03-16 2023-03-16 Orders Nilsa, 1.2.840.1 [id number] 2099 [id number] Methodi 00:00:00 00:00:00 Only John Prado 34881.1.[address] 3.430.2.7 Hospit a .3.936692 l .8 2023-03-12 2023-03-12 Travel 1.2.840.1 1.2.461.672 [id number] [id number] Methodi 00:00:00 00:00:[address] 3.430.2.7 0.2.7.3.698 Ho spita .3.870312 084.8 l .8 2023-03-12 2023-03-12 [facility] [id number] [address] [place] 00:00:00 00:00:[address] 2023-03-06 2023-03-06 Travel 1.2.840.1 1.2.768.726 [id number] [id number] Methodi 00:00:00 00:00:[address] 3.430.2.7 0.2.7.3.698 Ho spita .3.516342 084.8 l .8 2023-02-16 2023-02-16 Refill Miguel Angel, 1.2.840.1 [id number] 2099 [id number] Methodi 00:00:00 00:00:[address] 3.430.2.7 Hospit a .3.709851 l .8 2023-02-16 2023-02-16 Refill Yasmine Boogie 1.2.840.1 [id number] Methodi 00:00:00 00:00:[address] 3.430.2.7 Hospit a .3.849689 l .8 2023-02-10 2023-02-10 Office Nilsa, 1.2.840.1 [id number] 2099 [id number] Methodi 13:30:00 14:45:42 Visit John A. 75975.1.[address] 3.430.2.7 Hospit a .3.665554 l .8 2023-02-10 2023-02-10 Travel 1.2.840.1 1.2.754.641 2162 [id number] Methodi 00:00:00 00:00:[address] 3.430.2.7 0.2.7.3.698 Ho spita .3.284532 084.8 l .8 2023-02-10 2023-02-10 Outpatient ELAGRAHAM, [facility] [id number] [address] [place] 00:00:00 00:00:00 JOHN [address] 2022-12-22 2022-12-22 Refill Yasmine Boogie 1.2.840.1 [id number] Methodi 00:00:00 00:00:[address] 3.430.2.7 Hospit a .3.978272 l .8 2022-12-18 2022-12-18 Telephone Huey 1.2.840.1 [id number] Methodi 00:00:00 00:00:00 [address].1.[address] 3.430.2.7 Hospit a .3.504752 l .8 2022-11-29 2022-11-29 Refill Elagraham, 1.2.840.1 [id number] 2099 [id number] Methodi 00:00:00 00:00:00 John Prado 87598.1.[address] 3.430.2.7 Hospit a .3.134925 l .8 2022-11-03 2022-11-03 Refill Yasmine Boogie 1.2.840.1 [id number] Methodi 00:00:00 00:00:[address] 3.430.2.7 Hospit a .3.403802 l .8 2022-10-28 2022-10-28 Telephone Miguel Angel 1.2.840.1 [id number] Methodi 00:00:00 00:00:[address] 3.430.2.7 Hospit a .3.181460 l .8 2022-10-24 2022-10-24 Telephone Harion, 1.2.840.1 [id number] Methodi 00:00:00 00:00:[address] 3.430.2.7 Hospit a .3.729047 l .8 2022-10-24 2022-10-24 Orders Younis, 1.2.840.1 [id number] 2099 [id number] Methodi 00:00:00 00:00:00 Only John Prado 36706.1.[address] 3.430.2.7 Hospit a .3.873080 l .8 2022-10-22 2022-10-22 Telephone Youngraham, 1.2.840.1 [id number] Methodi 00:00:00 00:00:00 John Dominguez. 71866.1.[address] 3.430.2.7 Hospit a .3.993320 l .8 2022-10-16 2022-10-16 Travel 1.2.840.1 1.2.919.800 5672 [id number] Methodi 00:00:00 00:00:[address] 3.430.2.7 0.2.7.3.698 Ho spita .3.513177 084.8 l .8 2022-10-08 2022-10-08 Travel 1.2.840.1 1.2.070.107 2948 [id number] Methodi 00:00:00 00:00:[address] 3.430.2.7 0.2.7.3.698 Ho spita .3.861292 084.8 l .8 2022-09-22 2022-09-22 Office Younis, 1.2.840.1 [id number] 2099 [id number] Methodi 14:40:00 16:11:00 Visit John A. 62298.1.[address] 3.430.2.7 Hospit a .3.426133 l .8 2022-09-22 2022-09-22 Travel 1.2.840.1 1.2.230.228 8099 [id number] Methodi 00:00:00 00:00:[address] 3.430.2.7 0.2.7.3.698 Ho spita .3.560723 084.8 l .8 2022-09-22 2022-09-22 Outpatient YOUNIS, [facility] [id number] [address] [place] 00:00:00 00:00:00 JOHN [address] 2022-09-22 2022-09-22 Outpatient [facility] [id number] [address] [place] 00:00:00 00:00:[address] 2022-09-19 2022-09-19 Travel 1.2.840.1 1.2.594.632 3270 [id number] Methodi 00:00:00 00:00:[address] 3.430.2.7 0.2.7.3.698 Ho spita .3.271902 084.8 l .8 2022-08-18 2022-08-18 Refill [place], 1.2.840.1 [id number] 2099 [id number] Methodi 00:00:00 00:00:[address] 3.430.2.7 Hospit a .3.706440 l .8 2022-08-18 2022-08-18 Refill Huey, 1.2.840.1 [id number] 2099 [id number] Methodi 00:00:00 00:00:[address] Jack[address] Janel 22669.1.[address] 3.430.2.7 Hospit a .3.306728 l .8 2022-08-18 2022-08-18 Refill [place], 1.2.840.1 [id number] 2099 [id number] Methodi 00:00:00 00:00:[address] 3.430.2.7 Hospit a .3.612584 l .8 2022-08-18 2022-08-18 Refill [place], 1.2.840.1 [id number] 2099 [id number] Methodi 00:00:00 00:00:00 Jackelyn Islas 35805.1.[address] 3.430.2.7 Hospit a .3.578215 l .8 2022-08-13 2022-08-13 Telephone Younis, 1.2.840.1 [id number] Methodi 00:00:00 00:00:00 Jhon Prado 60849.1.[address] 3.430.2.7 Hospit a .3.273122 l .8 2022-08-13 2022-08-13 Telephone Younis, 1.2.840.1 [id number] Methodi 00:00:00 00:00:00 John Prado 22624.1.[address] 3.430.2.7 Hospit a .3.130808 l .8 2022-08-12 2022-08-12 Office Younis, 1.2.840.1 [id number] 2099 [id number] Methodi 13:40:00 14:28:32 Visit John Prado 15212.1.[address] 3.430.2.7 Hospit a .3.608989 l .8 2022-08-12 2022-08-12 Office Younis, 1.2.840.1 [id number] 2100 [id number] Methodi 13:40:00 14:28:32 Visit John DominguezJosé 63419.1.[address] 3.430.2.7 Hospit a .3.094220 l .8 2022-08-12 2022-08-12 Travel 1.2.840.1 1.2.115.353 3576 [id number] Methodi 00:00:00 00:00:[address] 3.430.2.7 0.2.7.3.698 Ho spita .3.985468 084.8 l .8 2022-08-12 2022-08-12 Travel 1.2.840.1 1.2.827.694 5064 000542 Methodi 00:00:00 00:00:[address] 3.430.2.7 0.2.7.3.698 Ho spita .3.828664 084.8 l .8 2022-07-14 2022-07-14 Travel 1.2.840.1 1.2.385.509 0315 [id number] Methodi 00:00:00 00:00:[address] 3.430.2.7 0.2.7.3.698 Ho spita .3.277291 084.8 l .8 2022-07-14 2022-07-14 Travel 1.2.840.1 1.2.414.322 1905 [id number] Methodi 00:00:00 00:00:[address] 3.430.2.7 0.2.7.3.698 Ho spita .3.564012 084.8 l .8 2022-03-13 2022-03-13 Refill Younis, 1.2.840.1 [id number] Methodi 00:00:00 00:00:00 John A. 64933.1.[address] 3.430.2.7 Hospit a .3.205751 l .8 2022-02-28 2022-02-28 Refill Younis, 1.2.840.1 [id number] 2099 [id number] Methodi 00:00:00 00:00:00 John A. 42441.1.[address] 3.430.2.7 Hospit a .3.759204 l .8 2022-01-20 2022-01-20 Refill Younis, 1.2.840.1 [id number] Methodi 00:00:00 00:00:00 John A[address]43.1.[address] 3.430.2.7 Hospit a .3.630184 l .8 2022-01-07 2022-01-07 Office Younis, 1.2.840.1 [id number] 2099 [id number] Methodi 10:50:00 12:23:19 Visit John AngelicaJosé 54590.1.[address] 3.430.2.7 Hospit a .3.104403 l .8 2022-01-06 2022-01-06 Travel 1.2.840.1 1.2.708.790 4446 855148 Methodi 00:00:00 00:00:[address] 3.430.2.7 0.2.7.3.698 spita .3.075952 084.8 l .8 2021-05-09 2021-05-09 Outpatient [facility] [id number] [address] [place] 00:00:00 00:00:00 JOHN [address]Mercedes Method i st Results This patient has no known results.
[2023-03-20] MEDS ORDERED: TETANUS & DIPHTHERIA TOX,ADULT 0.5 ML VIAL ONE (21:30)
--- NOTE | 2023-03-20 22:11 | RAD REPORT ---
EXAM DESCRIPTION: CT - Head C Spine Mpr Wo Con - 03/20/2023 9:51 pm CLINICAL HISTORY: Head and neck injury status post fall. Head and neck pain COMPARISON: 2021 TECHNIQUE: Computed axial tomography of the head and cervical spine was obtained. Sagittal and coronal reconstruction was performed. All CT scans are performed using dose optimization technique as appropriate and may include automated exposure control or mA/KV adjustment according to patient size. FINDINGS: Ventricles are moderately dilated without significant change. An intracranial bleed is not seen. No significant hypodensity within the brain. An extra-axial fluid collection is not noted. Fluid within the visualized sinuses and mastoids is not seen A cervical fracture is not visualized. No dislocation is noted. IMPRESSION: No acute intracranial abnormality is seen. Moderate dilatation of ventricles may indicate normal pressure hydrocephalus and should be correlated clinically. A cervical fracture is not visualized. If the patient continues to have symptoms to suggest acute intracranial /spinal cord pathology then M RI would be recommended
--- NOTE | 2023-03-20 22:23 | EDPHYS ---
Physician Documentation [facility] Name: Corina Hernandez Age: 87 yrs Sex: Female : 1935 Arrival Date: 03/20/2023 Time: 20:43 Bed 16 Private MD: ED Physician Stan Pierre HPI: 03/20 21:17 This 87 yrs old Female presents to ER via EMS with complaints of Fall. bs3 21:17 60 CAD status post CABG, CHF, hypertension, hypothyroidism presents after a fall she bs3 has leg weakness for the last 2 years after her and she stopped walking and she was feeding cats and leaned over and fell no presyncopal headache chest pain shortness of breath abdominal pain she was found in the bushes per her daughter she was seen by her hr associate recently and is being worked up at that time. Historical: - Allergies: 20:59 Codeine; ha1 - PMHx: 20:59 Congestive heart failure; Hypertensive disorder; Hypothyroidism; ha1 - PSHx: 20:59 Coronary artery bypass graft; ha1 - Immunization history:: Adult Immunizations unknown. - Social history:: Smoking status: Patient denies any tobacco usage or history of. ROS: 21:17 Constitutional: Negative for fever, chills bs3 21:17 All other systems are negative. Exam: 21:17 Constitutional: This is a well developed, well nourished patient who is awake, alert, bs3 and in no acute distress. Head/Face: Normocephalic, atraumatic. Eyes: Pupils equal round and reactive to light, extra-ocular motions intact. Lids and lashes normal. ENT: mmm, no posterior phyarngeal erythema Neck: Trachea midline, no thyromegaly, no neck stiffness, she has left lateral paraspinal tenderness greater than midline tenderness but slight midline tenderness as well she has full range of motion Chest/axilla: Normal chest wall appearance and motion. Nontender with no deformity. No lesions are appreciated. Cardiovascular: Regular rate and rhythm with a normal S1 and S2. symmetric pulses in upper extremities 21:17 Musculoskeletal/extremity: She is superficial abrasions and a superficial laceration to bs3 her left upper extremity she has no focal bony tenderness. Vital Signs: 20:55 BP 163 / 43; Pulse 51; Resp 16; Temp 98.1; Pulse Ox 95% on R/A; Weight 63.5 kg; Height ha1 5 ft. 2 in. ; Pain 5/10; 21:40 BP 170 / 53; Pulse 50; Resp 15 S; Pulse Ox 95% ; ha1 22:40 BP 167 / 59; Pulse 51; Resp 18 S; Pulse Ox 95% on R/A; ha1 20:55 Body Mass Index 25.61 (63.50 kg, 157.48 cm) ha1 20:55 Pain Scale: Adult ha1 MDM: 21:03 Patient medically screened. bs3 21:17 Differential diagnosis: abrasion, closed head injury, contusion, fracture. Data bs3 reviewed: vital signs, nurses notes. 21:17 ED course: Her fall appears to be mechanical we discussed options of work-up with the bs3 patient and her daughter at bedside they do not want to pursue a syncope work-up at this time they have good follow-up with Dr. Yadav and her hr associate this week her laceration is too small to close we will get CT of her head and C-spine Will update tetanus we will discharge home. 22:19 ED course: CT negative for intracranial hemorrhage patient does have hydrocephalus we bs3 have no prior scans I advised him to talk with Dr. Yadav this week and follow-up with Dr. Antonio, this could be the cause of her balance issues. . 03/20 21:16 Order name: CT Head C Spine; Complete Time: 22:14 bs3 Administered Medications: 21:34 Drug: Tetanus-Diphtheria Toxoid IM Adult 0.5 ml {Medical Affairs Specialist: [employer]. Exp: ha1 03/21/2024. Lot #: [id number]. } Route: IM; Site: right deltoid; 22:00 Follow up: Response: No adverse reaction ha1 Disposition Summary: 03/20/23 22:23 Discharge Ordered Location: Home bs3 Problem: new bs3 Symptoms: have improved bs3 Condition: Stable bs3 Diagnosis - Unspecified injury of head, initial encounter bs3 - Abrasion of left forearm bs3 Followup: bs3 - With: Private Physician - When: 2 - 3 days - Reason: Re-evaluation by your physician Followup: bs3 - With: Leonardo Antonio MD - When: 1 week - Reason: Recheck today's complaints Discharge Instructions: - Discharge Summary Sheet bs3 - Head Injury, Adult bs3 - Abrasion, Uxlc-lx-Agle bs3 - Normal-Pressure Hydrocephalus bs3 Forms: - Medication Reconciliation Form bs3 - Thank You Letter bs3 - Antibiotic Education bs3 - Prescription Opioid Use bs3 Signatures: Dispatcher [employer] EDIsabel Vasquez RN RN ha1 Stan Pierre MD MD bs3 Corrections: (The following items were deleted from the chart) 21:18 21:17 Constitutional: This is a well developed, well nourished patient who is awake, bs3 alert, and in no acute distress. Head/Face: Normocephalic, atraumatic. Eyes: Pupils equal round and reactive to light, extra-ocular motions intact. Lids and lashes normal. ENT: mmm, no posterior phyarngeal erythema Neck: Trachea midline, no thyromegaly, no neck stiffness Chest/axilla: Normal chest wall appearance and motion. Nontender with no deformity. No lesions are appreciated. Cardiovascular: Regular rate and rhythm with a normal S1 and S2. symmetric pulses in upper extremities bs3
--- NOTE | 2023-03-20 22:23 | ER ---
Nurse's Notes [facility] Name: Corina Hernandez Age: 87 yrs Sex: Female : 1935 Arrival Date: 03/20/2023 Time: 20:43 Bed 16 Private MD: Diagnosis: Unspecified injury of head, initial encounter;Abrasion of left forearm Presentation: 03/20 20:55 Chief complaint: EMS states: 87 year old female was outside her house feeding her cats ha1 when she fell and hit the left side of her head. Reports feeling pain on her neck and dizzy at times. Reports not losing conscious. Coronavirus screen: Vaccine status:. Ebola Screen: No symptoms or risks identified at this time. Initial Sepsis Screen: Does the patient meet any 2 criteria? No. Patient's initial sepsis screen is negative. Does the patient have a suspected source of infection? No. Patient's initial sepsis screen is negative. Risk Assessment: Do you want to hurt yourself or someone else? Patient reports no desire to harm self or others. Onset of symptoms was March 20, 2023. 20:55 Method Of Arrival: EMS: [facility] ha1 20:55 Acuity: MARLINE 3 ha1 Triage Assessment: 03/19 20:53 General: Appears uncomfortable, Behavior is calm, cooperative. Pain: Complains of pain ha1 in neck Pain does not radiate. Pain currently is 5 out of 10 on a pain scale. Neuro: Level of Consciousness is awake, alert, obeys commands, Oriented to person, place, time, situation. Cardiovascular: Patient's skin is warm and dry. Respiratory: Airway is patent Respiratory effort is even, unlabored, Respiratory pattern is regular, symmetrical. GI: No signs and/or symptoms were reported involving the gastrointestinal system. : No signs and/or symptoms were reported regarding the genitourinary system. Derm: Skin is pink, warm \T\ dry. Musculoskeletal: Circulation, motion, and sensation intact. Historical: - Allergies: 03/20 20:59 Codeine; ha1 - PMHx: 20:59 Congestive heart failure; Hypertensive disorder; Hypothyroidism; ha1 - PSHx: 20:59 Coronary artery bypass graft; ha1 - Immunization history:: Adult Immunizations unknown. - Social history:: Smoking status: Patient denies any tobacco usage or history of. Screenin:53 [facility] ED Fall Risk Assessment (Adult) History of falling in the last 3 months, ha1 including since admission Yes- single mechanical fall (1 pt) Confusion or Disorientation No (0 pts) Intoxicated or Sedated No (0 pts) Impaired Gait Yes (1 pt) Mobility Assist Device Used Yes (1 pt) Altered Elimination No (0 pt) Score/Fall Risk Level 3 or more points = High Risk Oriented to surroundings, Maintained a safe environment, Educated pt \T\ family on fall prevention, incl call for assistance when getting out of bed. 21:02 Abuse screen: Denies threats or abuse. Denies injuries from another. Nutritional ha1 screening: No deficits noted. Tuberculosis screening: No symptoms or risk factors identified. Assessment: 20:53 Reassessment: see triage assessment. ha1 21:39 Reassessment: Patient and/or family updated on plan of care and expected duration. Pain ha1 level reassessed. Patient is alert, oriented x 3, equal unlabored respirations, skin warm/dry/pink. 21:40 Reassessment: going to CT. ha1 22:40 Reassessment: Patient and/or family updated on plan of care and expected duration. Pain ha1 level reassessed. Patient is alert, oriented x 3, equal unlabored respirations, skin warm/dry/pink. Vital Signs: 20:55 BP 163 / 43; Pulse 51; Resp 16; Temp 98.1; Pulse Ox 95% on R/A; Weight 63.5 kg; Height ha1 5 ft. 2 in. ; Pain 5/10; 21:40 BP 170 / 53; Pulse 50; Resp 15 S; Pulse Ox 95% ; ha1 22:40 BP 167 / 59; Pulse 51; Resp 18 S; Pulse Ox 95% on R/A; ha1 20:55 Body Mass Index 25.61 (63.50 kg, 157.48 cm) ha1 20:55 Pain Scale: Adult ha1 ED Course: 20:53 Patient arrived in ED. rv1 20:53 Arm band placed on right wrist. ha1 20:54 Patient has correct armband on for positive identification. Placed in gown. Bed in low ha1 position. Call light in reach. Side rails up X 1. 20:55 Isabel Gay RN is Primary Nurse. ha1 20:59 Triage completed. ha1 21:04 Stan Pierre MD is Attending Physician. bs3 21:53 CT Head C Spine In Process Unspecified. EDMS 22:22 Leonardo Antonio MD is Referral Physician. bs3 22:46 No provider procedures requiring assistance completed. Patient did not have IV access ha1 during this emergency room visit. Administered Medications: 21:34 Drug: Tetanus-Diphtheria Toxoid IM Adult 0.5 ml {Rehabilitation Caseworker: [employer]. Exp: ha1 03/21/2024. Lot #: [id number]. } Route: IM; Site: right deltoid; 22:00 Follow up: Response: No adverse reaction ha1 Medication: 22:47 VIS not applicable for this client. ha1 Outcome: 22:23 Discharge ordered by . bs3 22:46 Discharged to home via wheelchair, with family. ha1 22:46 Condition: stable 22:46 Discharge instructions given to patient, family, Instructed on discharge instructions, follow up and referral plans. Demonstrated understanding of instructions, follow-up care. 22:48 Patient left the ED. ha1 Signatures: Dispatcher [employer] EDOR Isabel Gay RN RN ha1 Stan Pierre MD MD bs3 Dianelys Sprague rv1 Corrections: (The following items were deleted from the chart) 21:39 20:55 Chief complaint: EMS states: 87 year old female was outside her house feeding her ha1 cats when she fell and hit the left side of her head. Reports feeling pain on her neck and dizzy at times. ha1
[2023-03-20 23:52] VITALS: TEMP 98.1; O2SAT 95
[2023-03-20 23:54] VITALS: BP 167/59
== END 2023-03-20 22:48 | disposition home or self-care (01) ==
LOC: ER 20:43
DX: S09.90XA Unspecified injury of head, initial encounter (principal); S50.812A Abrasion of left forearm, initial encounter; W18.30XA Fall on same level, unspecified, initial encounter; I10 Essential (primary) hypertension; I50.9 Heart failure, unspecified; Z23 Encounter for immunization; Z95.1 Presence of aortocoronary bypass graft; Z88.5 Allergy status to narcotic agent
CPT/HCPCS: 70450; 72125; 90471; 90714; 99284

== ENCOUNTER 2023-05-10 14:59 | Emergency (ER) | payer OTHER ==
--- OUTSIDE RECORDS SUMMARY | 2023-05-10 15:07 | XMS REPORT | Continuity of Care Document ---
:1935 Author Organization [facility] t Address [address] 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 Paternal grandfather No Known Problems [facility] Paternal grandmother No Known Problems [facility] Natural brother Diabetes [facility] Natural father Heart attack [facility] Natural sister Diabetes [facility] Natural son Heart failure [facility] Natural son Hyperlipidemia [facility] Natural son Hypertension [facility] Natural son Sleep apnea [facility] Social History Social Habit Start Date Stop Date Quantity Comments Source Gender identity [facility] Sexual orientation [facility] Alcohol intake 2023-03-27 2023-03-27 Lifetime Mandaen 00:00:00 00:00:00 non-drinker Hospital (finding) History of Social 2023-03-27 2023-03-[address] function 00:00:00 00:00:00 Hospital Tobacco use and 2022-08-12 2022-08-12 Smokeless Mandaen exposure 00:00:00 00:00:00 tobacco non-user Hospital Sex Assigned At [birth year] Mandaen 00:00:00 00:00:00 Hospital Smoking Status Start Date Stop Date Source Never smoked tobacco [facility] Medications Ordered Filled Start Stop Current Ordering Indication Dosage Frequency Signature Comments Components Source Medication Medication Date Date Medication? Clinician (SIG) Name Name rosuvastati Yes [id number] 5mg Q.5W Take 1 Methodi n (CRESTOR) -13 tablet (5 st 5 mg tablet 00:00: mg total) H ospita 00 by mouth 2 l (two) times a week. dapaglifloz 2023-0 2023- No QD Take by Me thodi in 04-22-[address] (FARXIGA) 11:46: 00:00 daily. Hospi ta 10 mg 36 :00 l tablet doxazosin 2022-0 Yes [id number] 2mg QD Take 1 Me thodi (CARDURA) 2 -12 tablet (2 st MG tablet 00:00: mg total) Hos lizzy 00 by mouth l nightly. aspirin 2022-0 Yes [id number] 81mg QD Take 1 Met hodi (ECOTRIN) -12 tablet (81 st 81 MG 00:00: mg total) Hospita enteric 00 by mouth l coated daily. tablet clonIDINE 2022-0 Yes [id number] .1mg Q4H Take 1 Me thodi (CATAPRES) 04-[address] 0.1 MG 00:00: (0.1 mg Hospita tablet 00 total) by l mouth every 4 (four) hours as needed (htn). For SBP>180 hydrALAZINE 2022-0 Yes [id number] 25mg Q.5D Take 1 Methodi (APRESOLINE -12 tablet (25 st ) 25 MG 00:00: mg total) Hospi ta tablet 00 by mouth 2 l (two) times a day. nitroglycer 2022-[address] 1 Met hodi in 04-[address] (NITROSTAT) 00:00: (0.4 mg Hos lizzy 0.4 MG SL 00 total) l tablet under the tongue every 5 (five) minutes as needed for chest pain. Not to exceed 3 doses in 15min. olmesartan 3-0 Yes 40mg QD Take 1 Metho di (BENICAR) -12 tablet (40 st 40 MG 00:00: mg total) Hospita tablet 00 by mouth l daily. torsemide 3-0 Yes 20mg Q.5D Take 1 Method i (DEMADEX) 7-12 tablet (20 st 20 MG 00:00: mg total) Hospita tablet 00 by mouth 2 l (two) times a day. amIODarone 2022-0 Yes 200mg QD Take 1 Meth lore (PACERONE) 04-[address] 200 MG 00:00: (200 mg Hospita tablet 00 total) by l mouth daily. dapaglifloz 2023-0 Yes 10mg QD Take 1 Meth lore in - tablet (10 st propanediol 00:00: mg total) H ospita (FARXIGA) 00 by mouth l 10 mg daily. tablet doxazosin 2023-0 2023- No [id number] 2mg QD Take 1 M ethodi (CARDURA) 2 04-20 tablet (2 st MG tablet 00:00: 00:00 mg total) Ho spita 00 :00 by mouth l nightly. nitroglycer 2023-0 2023- No .4mg Place 0.4 Methodi in 02-16 05-[address] (NITROSTAT) 13:36: 00:00 the tongue Hospita 0.4 MG SL 33 :00 every 5 l tablet (five) minutes as needed. Not to exceed 3 doses in 15min. nitroglycer 2023-0 2023- No .4mg Place 0.4 Methodi in 02-16 05-[address] (NITROSTAT) 13:36: 00:00 the tongue Hospita 0.4 MG SL 33 :00 every 5 l tablet (five) minutes as needed. Not to exceed 3 doses in 15min. nitroglycer 2023-[address] 1 Met hodi in 02-[address] (NITROSTAT) 00:00: (0.4 mg Hos lizzy 0.4 MG SL 00 total) l tablet under the tongue every 5 (five) minutes as needed for chest pain. Not to exceed 3 doses in 15min. amIODarone 2023-0 Yes 200mg QD Take 1 Meth lore (PACERONE) 02-[address] 200 MG 00:00: (200 mg Hospita tablet 00 total) by l mouth daily. nitroglycer 2023-0 2023- No .4mg Place 1 Me thodi in 02-16-[address] (NITROSTAT) 00:00: 00:00 (0.4 mg Ho spita 0.4 MG SL 00 :00 total) l tablet under the tongue every 5 (five) minutes as needed for chest pain. Not to exceed 3 doses in 15min. amIODarone 0 2022- No 200mg QD Take 1 Met hodi (PACERONE) 02-16 07-[address] 200 MG 00:00: 00:00 (200 mg Hospita tablet 00 :00 total) by l mouth daily. levothyroxi 2022-0 Yes 150ug QD Take 1 Met hodi ne - tablet st (SYNTHROID) 14:15: (150 mcg Ho spita 150 mcg 36 total) by l tablet mouth every morning. dapaglifloz 2022-0 Yes QD Take by Met hodi in 5-[address] (FARXIGA) 14:15: daily. Hospit a 10 mg 36 l tablet iron Yes Take by Methodi fum/vit 5-[address] C/ascorbate 14:15: Hospit a sod (IRON 36 l PLUS VITAMIN C ORAL) meclizine Yes 1{tbl} Take 1 Meth lore (ANTIVERT) 5-02 tablet (25 st 25 mg 14:15: mg total) Hospita tablet 36 by mouth l once as needed. vit 0 Yes 1{tbl} Q.5D Take 1 Methodi C/E/Zn/danuta 5-[address] r/lutein/ze 14:15: mouth 2 Hos lizzy axan 36 (two) l (PRESERVISI times a ON AREDS-2 day. ORAL) melatonin 3 Yes 3mg QD Take 1 Meth lore mg tablet 5-02 tablet (3 st 14:15: mg total) Hospita 36 by mouth l nightly as needed for sleep. iron Yes Take by Methodi fum/vit 5-[address] C/ascorbate 14:15: Hospit a sod (IRON 36 l PLUS VITAMIN C ORAL) meclizine Yes 1{tbl} Take 1 Meth lore (ANTIVERT) 5-02 tablet (25 st 25 mg 14:15: mg total) Hospita tablet 36 by mouth l once as needed. vit 2022-0 Yes 1{tbl} Q.5D Take 1 Methodi C/E/Zn/danuta 5-[address] r/lutein/ze 14:15: mouth 2 Hos lizzy axan 36 (two) l (PRESERVISI times a ON AREDS-2 day. ORAL) melatonin 3 2022-0 Yes 3mg QD Take 1 Meth lore mg tablet 5-02 tablet (3 st 14:15: mg total) Hospita 36 by mouth l nightly as needed for sleep. levothyroxi 2022-0 Yes 150ug QD Take 1 Met hodi ne 5-[address] (SYNTHROID) 14:15: (150 mcg Ho spita 150 mcg 36 total) by l tablet mouth every morning. torsemide 2022-0 2023- No 20mg Q.5D Take 1 Metho di (DEMADEX) 12-22-13 tablet (20 st 20 MG 10:29: 00:00 mg total) Hospit a tablet 54 :00 by mouth 2 l (two) times a day. torsemide 2022-0 2023- No 20mg Q.5D Take 1 Metho di (DEMADEX) 12-22-13 tablet (20 st 20 MG 10:29: 00:00 mg total) Hospit a tablet 54 :00 by mouth 2 l (two) times a day. torsemide 3-0 Yes 20mg Q.5D Take 1 Method i (DEMADEX) 3-13 tablet (20 st 20 MG 00:00: mg total) Hospita tablet 00 by mouth 2 l (two) times a day. torsemide 3-0 2023- No 20mg Q.5D Take 1 Metho di (DEMADEX) 12-22-12 tablet (20 st 20 MG 00:00: 00:00 mg total) Hospit a tablet 00 :00 by mouth 2 l (two) times a day. doxazosin 2023-0 Yes [id number] TAKE 1 Me thodi (CARDURA) 2 2-20 TABLET(2 st MG tablet 00:00: MG) BY Hospit a 00 MOUTH l EVERY NIGHT doxazosin 2023-0 2023- No [id number] TAKE 1 M ethodi (CARDURA) 2 2-20 07-10 TABLET(2 st MG tablet 00:00: 00:00 MG) BY Hospi ta 00 :00 MOUTH l EVERY NIGHT olmesartan 2023-0 Yes 40mg QD Take 1 Metho di (BENICAR) 1-23 tablet (40 st 40 MG 00:00: mg total) Hospita tablet 00 by mouth l daily. olmesartan 2023-0 2023- No 40mg QD Take 1 Meth lore (BENICAR) 11-03 07-12 tablet (40 st 40 MG 00:00: 00:00 mg total) Hospit a tablet 00 :00 by mouth l daily. amIODarone 2022- No 200mg QD Take 1 Met hodi (PACERONE) 10-24 05-[address] 200 MG 00:00: 00:00 (200 mg Hospita tablet 00 :00 total) by l mouth daily. amIODarone No 200mg QD Take 1 Met hodi (PACERONE) 10-24 05-[address] 200 MG 00:00: 00:00 (200 mg Hospita tablet 00 :00 total) by l mouth daily. doxazosin 2021-10 Yes [id number] 2mg QD Take 1 Me thodi (CARDURA) 2 10-18 tablet (2 st MG tablet 00:00: mg total) Hos lizzy 00 by mouth l nightly. doxazosin 2021-10 No [id number] 2mg QD Take 1 M ethodi (CARDURA) 2 10-1820 tablet (2 st MG tablet 00:00: 00:00 mg total) Ho spita 00 :00 by mouth l nightly. doxazosin 2021-10 No [id number] 2mg QD Take 1 M ethodi (CARDURA) 2 10-18-20 tablet (2 st MG tablet 00:00: 00:00 mg total) Ho spita 00 :00 by mouth l nightly. vit 2021-10- No 1{capsu Q.5D Take 1 Methodi C/E/Zn/danuta 10-12 le} capsule by s t r/lutein/ze 14:15: 00:00 mouth 2 Ho spita axan 21 :00 (two) l (PRESERVISI times a ON AREDS-2 day. ORAL) ZINC 2021-10 No 1{tbl} QD Take 1 Methodi ACETATE [...] mouth Hospita 21 :00 daily. l vit 2021-10 1{capsu Q.5D Take 1 Methodi C/E/Zn/danuta 10-12 [...] 14 :00 daily. l tablet calcium 2021-10 1{tbl} Q.5D Take 1 Metho di carb,gluc/m 10-[address] ag ox,gluc 14:15: 00:00 mouth 2 Hos lizzy (CALCIUM 10 :00 (two) l MAGNESIUM times a ORAL) day. calcium 2021-10 1{tbl} Q.5D Take 1 Metho di carb,gluc/m [...] PLUS VITAMIN C ORAL) torsemide 2021-10 Yes [id number] 40mg QD Take 40 mg Methodi 40 mg 10-[address] tablet 00:00: daily. Hospita 00 Takes l 1/2(10) tablet torsemide 2021-10 No [id number] 40mg QD Take 40 mg Methodi 40 mg 10-[address] tablet 00:00: 00:00 daily. Hospita 00 :00 Takes l 1/2(10) tablet torsemide 2021-10- No [id number] 40mg QD Take 40 mg Methodi 40 mg 10-[address] tablet 00:00: 00:00 daily. Hospita 00 :00 Takes l 1/2(10) tablet torsemide 2021-10- No [id number] 20mg Q.5D Take 1 M ethodi (DEMADEX) 10-12 tablet (20 st 20 MG 00:00: 00:00 mg total) Hospit a tablet 00 :00 by mouth 2 l (two) times a day. Takes 1/2(10) tablet torsemide 2021-10- No [id number] 20mg Q.5D Take 1 M ethodi (DEMADEX) 10-12 tablet (20 st 20 MG 00:00: 00:00 mg total) Hospit a tablet 00 :00 by mouth 2 l (two) times a day. Takes 1/2(10) tablet torsemide 2021-10- No [id number] 20mg Q.5D Take 1 M ethodi (DEMADEX) [...] Hospit a tablet 00 DAILY l olmesartan 0 2022- No TAKE 1 Meth lore (BENICAR) 03-[address] 40 MG 00:00: 00:00 MOUTH ONCE Hospi ta tablet 00 :00 DAILY l olmesartan 2021-0 2022- No TAKE 1 Meth lore (BENICAR) 03-[address] 40 MG 00:00: 00:00 MOUTH ONCE Hospi ta tablet 00 :00 DAILY l doxazosin 2021-0 2021- No [id number] TAKE 1 M ethodi (CARDURA) 2 -20 -[address] MG tablet 00:00: 00:00 MOUTH ONCE H ospita 00 :00 NIGHTLY l BEFORE BED doxazosin 2021-0 2- No [id number] TAKE 1 M ethodi (CARDURA) 2 5-20 - TABLET BY st MG tablet 00:00: 00:00 MOUTH ONCE H ospita 00 :00 NIGHTLY l BEFORE BED doxazosin 2021-0 2021- No [id number] TAKE 1 M ethodi (CARDURA) 2 02-28- TABLET BY st MG tablet 00:00: 00:00 MOUTH ONCE H ospita 00 :00 NIGHTLY l BEFORE BED hydrALAZINE 2021-0 Yes [id number] TAKE 1 Methodi (APRESOLINE 4-[address] ) 50 MG 00:00: MOUTH 3 Hospita tablet 00 TIMES l DAILY hydrALAZINE 2021-0 Yes [id number] TAKE 1 Methodi (APRESOLINE 4-[address] ) 50 MG 00:00: MOUTH 3 Hospita tablet 00 TIMES l DAILY hydrALAZINE 2021-0 2022- No [id number] TAKE 1 Methodi (APRESOLINE 4-11 -[address] ) 50 MG 00:00: 00:00 MOUTH 3 Hospit a tablet 00 :00 TIMES l DAILY rosuvastati 2021-0 Yes [id number] 5mg Q.5W Take 1 Methodi n (CRESTOR) 3-31 tablet (5 st 5 mg tablet 00:00: mg total) H ospita 00 by mouth 2 l (two) times a week. rosuvastati 2021-0 Yes [id number] 5mg Q.5W Take 1 Methodi n (CRESTOR) 3-31 tablet (5 st 5 mg tablet 00:00: mg total) H ospita 00 by mouth 2 l (two) times a week. rosuvastati 2021-0 2022- No [id number] 5mg Q.5W Take 1 Methodi n (CRESTOR) 3-31 07-12 tablet (5 st 5 mg tablet 00:00: 00:00 mg total) Hospita 00 :00 by mouth 2 l (two) [...] .1mg Q4H Take 0.1 Met hodi (CATAPRES) 01-[address] 0.1 MG 12:14: 00:00 [...] a l week. hydrALAZINE 2021- No 50mg Q.[id number] Take 50 mg Methodi (APRESOLINE 01-07 [id number] by mouth 3 st ) 50 MG [...] 200 Met hodi Q10 200 mg 01-07 03-[address] capsule 11:51: 00:00 mouth Hospita 12 :00 daily. l ascorbic 2021-0 2021- No 1000mg QD Take 1,000 Methodi acid, 01-07-[address] vitamin C, 11:51: 00:00 mouth Hospi ta (VITAMIN C) 12 :00 daily. l 1000 MG tablet ibuprofen 0 2021- No 200mg Q6H Take 200 Me thodi (ADVIL) 200 01-07 03-[address] MG tablet 11:51: 00:00 mouth Hospit a 12 :00 every 6 l (six) hours as needed. aspirin 0 Yes [id number] 81mg QD Take 1 Met hodi (ECOTRIN) - tablet (81 st 81 MG 00:00: mg total) Hospita enteric 00 by mouth l coated daily. tablet clonIDINE 0 Yes [id number] .1mg Q4H Take 1 Me thodi (CATAPRES) 01-[address] 0.1 MG 00:00: (0.1 mg Hospita tablet 00 total) by l mouth every 4 (four) hours as needed (htn). For SBP>180 aspirin Yes [id number] 81mg QD Take 1 Met hodi (ECOTRIN) - tablet (81 st 81 MG 00:00: mg total) Hospita enteric 00 by mouth l coated daily. tablet clonIDINE 2021-0 Yes [id number] .1mg Q4H Take 1 Me thodi (CATAPRES) -[address] 0.1 MG 00:00: (0.1 mg Hospita tablet 00 total) by l mouth every 4 (four) hours as needed (htn). For SBP>180 aspirin 2021-0 2022- No [id number] 81mg QD Take 1 Me thodi (ECOTRIN) 01-07 07-12 tablet (81 st 81 MG 00:00: 00:00 mg total) Hospit a enteric 00 :00 by mouth l coated daily. tablet clonIDINE 2021-0 2022- No [id number] .1mg Q4H Take 1 M ethodi (CATAPRES) - 07-[address] 0.1 MG 00:00: 00:00 (0.1 mg Hospita tablet 00 :00 total) by l mouth every 4 (four) hours as needed (htn). For SBP>180 torsemide No [id number] 10mg Take 0.5 Methodi (DEMADEX) 01-[address] 20 MG 00:00: 00:00 (10 mg Hospita tablet 00 :00 total) by l mouth take as directed (s). Takes 1/2(10) tablet torsemide No [id number] 10mg Take 0.5 Methodi (DEMADEX) 01-[address] 20 MG 00:00: 00:00 (10 mg Hospita tablet 00 :00 total) by l mouth take as directed (s). Takes 1/2(10) tablet torsemide No [id number] 10mg Take 0.5 Methodi (DEMADEX) 01-[address] 20 MG 00:00: 00:00 (10 mg Hospita tablet 00 :00 total) by l mouth take as directed (s). Takes 1/2(10) tablet doxazosin No [id number] 2mg QD Take 1 M ethodi (CARDURA) 2 01-07 05-20 tablet (2 st MG tablet 00:00: 00:00 mg total) Ho spita 00 :00 by mouth l nightly. hydrALAZINE No [id number] 50mg Q.[id number] Take 1 Methodi (APRESOLINE 01-0711 [id number] tablet (50 st ) 50 MG 00:00: 00:00 3D mg total) [facility] tablet 00 :00 by mouth 3 l (three) times a day. Vital Signs Vital Name Observation Time Observation Value Comments Source Systolic blood 2023-03-27 18:10:00 165 mm[Hg] [facility] pressure Diastolic blood 2023-03-27 18:10:00 55 mm[Hg] [facility] pressure Heart rate 2023-03-27 18:10:00 47 /min [facility] Respiratory rate 2023-03-27 18:10:00 19 /min [facility] Body height 2023-03-27 18:10:00 157.5 cm [facility] Body weight 2023-03-27 18:10:00 67.586 kg [facility] BMI 2023-03-27 18:10:00 27.25 kg/m2 [facility] Oxygen saturation in 2023-03-27 18:10:00 96 /min [facility] Arterial blood by Pulse oximetry Systolic blood 2023-02-10 19:10:00 152 mm[Hg] [facility] pressure Diastolic blood 2023-02-10 19:10:00 61 mm[Hg] [facility] pressure Heart rate 2023-02-10 19:10:00 52 /min [facility] Respiratory rate 2023-02-10 19:10:00 12 /min [facility] Body height 2023-02-10 19:10:00 165.1 cm [facility] Body weight 2023-02-10 19:10:00 71.668 kg [facility] BMI 2023-02-10 19:10:00 26.29 kg/m2 [facility] Oxygen saturation in 2022-09-22 20:59:00 97 /min [facility] Arterial blood by Pulse oximetry Body weight 2022-08-12 18:50:00 71.668 kg [facility] BMI 2022-08-12 18:50:00 26.29 kg/m2 [facility] Oxygen saturation in 2022-08-12 18:50:00 98 /min [facility] Arterial blood by Pulse oximetry Systolic blood 2022-08-12 18:50:00 175 mm[Hg] Method [facility] pressure Diastolic blood 2022-08-12 18:50:00 66 mm[Hg] [facility] pressure Heart rate 2022-08-12 18:50:00 98 /min [facility] Body height 2022-08-12 18:50:00 165.1 cm [facility] Respiratory rate 2022-01-07 16:51:00 12 /min [facility] Procedures Procedure Date / Time Performed Performing Clinician [facility] e BASIC METABOLIC PANEL 2023-04-02 14:50:00 [facility] POC CREATININE 2023-03-27 18:17:00 [facility] ESTIMATED GFR 2023-03-27 18:17:00 [facility] CV CARDIAC PET 2023-03-16 17:32:47 Nilsa [facility] MYOCARDIAL PERFUSION IMAGING ECG 12-LEAD 2023-02-10 18:52:00 Nilsa [facility] CV HOLTER MONITOR 48 2022-10-24 21:52:40 John Blackburn [facility] HOUR ECG 12-LEAD 2022-09-22 21:08:05 Nilsa [facility] ECG 12-LEAD 2022-09-22 21:07:00 Nilsa [facility] ECG 12-LEAD 2022-01-07 16:55:00 [facility] Plan of Care Planned Activity Planned Date Details Comments Source Future Scheduled 2023-05-07 COVID-19 VACCINE (#1) [facility] Test 16:03:36 [code = COVID-19 VACCINE (#1)] Future Scheduled 2023-05-07 65+ PNEUMOCOCCAL [facility] Test 16:03:36 VACCINE (1 - PCV) [code = 65+ PNEUMOCOCCAL VACCINE (1 - PCV)] Future Scheduled 2023-05-07 SHINGLES VACCINES (1 Met [facility] Test 16:03:36 of 2) [code = SHINGLES VACCINES (1 of 2)] Future Scheduled 2023-05-07 INFLUENZA VACCINE Method [facility] Test 16:03:36 [code = INFLUENZA VACCINE] Future Scheduled 2023-03-20 COVID-19 VACCINE (#1) [facility] Test 11:43:07 [code = COVID-19 VACCINE (#1)] Future Scheduled 2023-03-20 65+ PNEUMOCOCCAL [facility] Test 11:43:07 VACCINE (1 - PCV) [code = 65+ PNEUMOCOCCAL VACCINE (1 - PCV)] Future Scheduled 2023-03-20 SHINGLES VACCINES (1 Met [facility] Test 11:43:07 of 2) [code = SHINGLES VACCINES (1 of 2)] Future Scheduled 2023-03-20 INFLUENZA VACCINE Method [facility] Test 11:43:07 [code = INFLUENZA VACCINE] Future Scheduled 2022-08-18 HEPATITIS B VACCINES Met [facility] Test 15:02:15 (1 of 3 - 3-dose series) [code = HEPATITIS B VACCINES (1 of 3 - 3-dose series)] Future Scheduled 2022-08-18 COVID-19 VACCINE (#1) [facility] Test 15:02:15 [code = COVID-19 VACCINE (#1)] Future Scheduled 2022-08-18 65+ P[facility]UMOCOCCAL [facility] Test 15:02:15 VACCINE (1 - PCV) [code = 65+ PNEUMOCOCCAL VACCINE (1 - PCV)] Future Scheduled 2022-08-18 SHINGLES VACCINES (1 [facility] Test 15:02:15 of 2) [code = SHINGLES VACCINES (1 of 2)] Future Scheduled 2022-08-18 INFLUENZA VACCINE [facility] Test 15:02:15 [code = INFLUENZA VACCINE] Encounters Start End Encounter Admission Attending Care Care Encounter Source Date/Time Date/Time Type Type Clinicians Facility Department ID 2023-04-27 2023-04-27 Telephone Miguel Angel, 1.2.840.1 [id number] [facility] 00:00:00 00:00:[id number] 3.430.2.7 Hospit a .3.642635 l .8 2023-04-22 2023-04-22 Refill Huey, 1.2.840.1 [id number] Methodi 00:00:00 00:00:[address] Jackelyn Islas [address] 3.430.2.7 Hospit a .3.834722 l .8 2023-04-20 2023-04-20 Refill Miguel Angel 1.2.840.1 [id number] Methodi 00:00:00 00:00:[address] 3.430.2.7 Hospit a .3.553978 l .8 2023-04-06 2023-04-06 Telephone Tracey, 1.2.840.1 [id number] [facility] 00:00:00 00:00:[address] 3.430.2.7 Hospit a .3.257829 l .8 2023-03-27 2023-03-27 Hospital Nilsa, 1.2.840.1 [id number] Methodi 12:52:05 23:59:00 Encounter John Prado 71677.1.[address] 3.430.2.7 Hospit a .3.814037 l .8 2023-03-27 2023-03-27 Outpatient NILSA, [facility] [id number] [place] 00:00:00 00:00:[address] JOHN [address] 2023-03-27 2023-03-27 Telephone Tracey, 1.2.840.1 [id number] Methodi 00:00:00 00:00:[address] 3.430.2.7 Hospit a .3.329754 l .8 2023-03-17 2023-03-17 Travel 1.2.840.1 1.2.309.701 [id number] [facility]i 00:00:00 00:00:[address] 3.430.2.7 0.2.7.3.698 Ho spita .3.919388 084.8 l .8 2023-03-17 2023-03-17 Travel 1.2.840.1 1.2.169.695 2073 [id number] Methodi 00:00:00 00:00:[address] 3.430.2.7 0.2.7.3.698 Ho spita .3.170404 084.8 l .8 2023-03-16 2023-03-16 Orders Younis, 1.2.840.1 [id number] Methodi 00:00:00 00:00:00 Only John Prado 75253.1.[address] 3.430.2.7 Hospit a .3.861262 l .8 2023-03-16 2023-03-16 Orders Younis, 1.2.840.1 [id number] [facility]i 00:00:00 00:00:00 Only John Dominguez. 73827.1.[address] 3.430.2.7 Hospit a .3.110173 l .8 2023-03-122023-03-12 Travel 1.2.840.1 1.2.073.265 [id number] [facility]i 00:00:00 00:00:[address] 3.430.2.7 0.2.7.3.698 Ho spita .3.067074 084.8 l .8 2023-03-12 2023-03-12 [facility] [id number] [address] [place] 00:00:00 00:00:[address] 2023-03-12 2023-03-12 Travel 1.2.840.1 1.2.515.997 [id number] [facility]i 00:00:00 00:00:[address] 3.430.2.7 0.2.7.3.698 Ho spita .3.226624 084.8 l .8 2023-03-06 2023-03-06 Travel 1.2.840.1 1.2.120.318 0746 [id number] Methodi 00:00:00 00:00:[address] 3.430.2.7 0.2.7.3.698 Ho spita .3.983096 084.8 l .8 2023-03-06 2023-03-06 Travel 1.2.840.1 1.2.455.913 [id number] Methodi 00:00:00 00:00:[address] 3.430.2.7 0.2.7.3.698 Ho spita .3.388360 084.8 l .8 2023-02-16 2023-02-16 Refill Miguel Angel 1.2.840.1 [id number] [facility] 00:00:00 00:00:[address] 3.430.2.7 Hospit a .3.522934 l .8 2023-02-16 2023-02-16 Refill Yasmine Boogie 1.2.840.1 [id number] Methodi 00:00:00 00:00:[address] 3.430.2.7 Hospit a .3.260466 l .8 2023-02-16 2023-02-16 Refill Miguel Angel, 1.2.840.1 [id number] 2100 [address]24430 Methodi 00:00:00 00:00:[address] 3.430.2.7 Hospit a .3.520071 l .8 2023-02-16 2023-02-16 Refill Yasmine Boogie 1.2.840.1 [id number] Methodi 00:00:00 00:00:[address] 3.430.2.7 Hospit a .3.263212 l .8 2023-02-10 2023-02-10 Office [place], 1.2.840.1 2099 [id number] Methodi 13:30:00 14:45:42 Visit John Prado 46635.1.[address] 3.430.2.7 Hospit a .3.561416 l .8 2023-02-10 2023-02-10 Office [place], 1.2.840.1 2099 357382 Methodi 13:30:00 14:45:42 Visit John Prado 36169.1.[address] 3.430.2.7 Hospit a .3.819580 l .8 2023-02-10 2023-02-10 Travel 1.2.840.1 1.2.321.251 1145 732463 Methodi 00:00:00 00:00:[address] 3.430.2.7 0.2.7.3.698 Ho spita .3.223292 084.8 l .8 2023-02-10 2023-02-10 Travel 1.2.840.1 1.2.052.517 6977 454670 Methodi 00:00:00 00:00:[address] 3.430.2.7 0.2.7.3.698 Ho spita .3.682507 084.8 l .8 2022-12-22 2022-12-22 Refill Yasmine Boogie 1.2.840.1 [id number] Methodi 00:00:00 00:00:[address] 3.430.2.7 Hospit a .3.059281 l .8 2022-12-22 2022-12-22 Refill Yasmine Boogie 1.2.840.1 [id number] Methodi 00:00:00 00:00:[address] 3.430.2.7 Hospit a .3.676756 l .8 2022-12-18 2022-12-18 Telephone [place], 1.2.840.1 [id number] Methodi 00:00:00 00:00:00 Jack[address] Janel 17564.1.[address] 3.430.2.7 Hospit a .3.118526 l .8 2022-12-18 2022-12-18 Telephone [place], 1.2.840.1 [id number] Methodi 00:00:00 00:00:00 Jackelyn D [address]276.1.[address] 3.430.2.7 Hospit a .3.232405 l .8 2022-11-29 2022-11-29 Refill Younis, 1.2.840.1 2099 [id number] Methodi 00:00:00 00:00:[address] John Prado [address]161.1.[address] 3.430.2.7 Hospit a .3.323672 l .8 2022-11-29 2022-11-29 Refill Younis, 1.2.840.1 2099 [id number] Methodi 00:00:00 00:00:00 John Prado 17477.1.[address] 3.430.2.7 Hospit a .3.978515 l .8 2022-11-03 2022-11-03 RefYasmine Menchaca 1.2.840.1 [id number] Methodi 00:00:00 00:00:[address] 3.430.2.7 Hospit a .3.424254 l .8 2022-11-03 2022-11-03 Yasmine Harman 1.2.840.1 [id number] Methodi 00:00:00 00:00:[address] 3.430.2.7 Hospit a .3.105913 l .8 2022-10-28 2022-10-28 Telephone Miguel Angel, 1.2.840.1 [id number] Methodi 00:00:00 00:00:[address] 3.430.2.7 Hospit a .3.441194 l .8 2022-10-28 2022-10-28 Telephone Miguel Angel 1.2.840.1 [id number] Methodi 00:00:00 00:00:[address] 3.430.2.7 Hospit a .3.414422 l .8 2022-10-24 2022-10-24 Telephone Tracey, 1.2.840.1 [id number] Methodi 00:00:00 00:00:[address] 3.430.2.7 Hospit a .3.458099 l .8 2022-10-24 2022-10-24 Orders Nilsa, 1.2.840.1 [id number] 2100 [id number] Methodi 00:00:00 00:00:00 Only John Prado 26832.1.[address] 3.430.2.7 Hospit a .3.488155 l .8 2022-10-24 2022-10-24 Telephone Tracey, 1.2.840.1 [id number] Methodi 00:00:00 00:00:[address] 3.430.2.7 Hospit a .3.735270 l .8 2022-10-24 2022-10-24 Orders Younis, 1.2.840.1 [id number] Methodi 00:00:00 00:00:00 Only John Prado 01689.1.[address] 3.430.2.7 Hospit a .3.769181 l .8 2022-10-22 2022-10-22 Telephone Younis, 1.2.840.1 [id number] 21 [id number] Methodi 00:00:00 00:00:[address]. [address]442.1.[address] 3.430.2.7 Hospit a .3.297268 l .8 2022-10-22 2022-10-22 Telephone Younis, 1.2.840.1 41434 Methodi 00:00:00 00:00:00 John Dom[address]. [address]85.1.[address] 3.430.2.7 Hospit a .3.726378 l .8 2022-10-16 2022-10-16 Travel 1.2.840.1 1.2.139.250 2375 [id number] Methodi 00:00:00 00:00:[address] 3.430.2.7 0.2.7.3.698 Ho spita .3.500340 084.8 l .8 2022-10-16 2022-10-16 Travel 1.2.840.1 1.2.126.613 0401 202417 Methodi 00:00:00 00:00:[address] 3.430.2.7 0.2.7.3.698 Ho spita .3.587341 084.8 l .8 2022-10-08 2022-10-08 Travel 1.2.840.1 1.2.628.098 6219 [id number] Methodi 00:00:00 00:00:[address] 3.430.2.7 0.2.7.3.698 Ho spita .3.709835 084.8 l .8 2022-10-08 2022-10-08 Travel 1.2.840.1 1.2.978.377 4399 152845 Methodi 00:00:00 00:00:[address] 3.430.2.7 0.2.7.3.698 Ho spita .3.464283 084.8 l .8 2022-09-22 2022-09-22 Office Younis, 1.2.840.1 [id number] 2099 [id number] Methodi 14:40:00 16:11:00 Visit John Prado 47132.1.[address] 3.430.2.7 Hospit a .3.477318 l .8 2022-09-22 2022-09-22 Office Younis, 1.2.840.1 2099 [id number] Methodi 14:40:00 16:11:00 Visit John Prado 47686.1.[address] 3.430.2.7 Hospit a .3.242954 l .8 2022-09-22 2022-09-22 Outpatient [facility] [id number] [address] [place] 00:00:00 00:00:[address] 2022-09-22 2022-09-22 Travel 1.2.840.1 1.2.211.599 6130 [id number] Methodi 00:00:00 00:00:[address] 3.430.2.7 0.2.7.3.698 Ho spita .3.857725 084.8 l .8 2022-09-22 2022-09-22 Travel 1.2.840.1 1.2.783.068 1086 [id number] Methodi 00:00:00 00:00:[address] 3.430.2.7 0.2.7.3.698 Ho spita .3.291031 084.8 l .8 2022-09-19 2022-09-19 Travel 1.2.840.1 1.2.094.247 2330 [id number] Methodi 00:00:00 00:00:[address] 3.430.2.7 0.2.7.3.698 Ho spita .3.524085 084.8 l .8 2022-09-19 2022-09-19 Travel 1.2.840.1 1.2.964.896 4949 459686 Methodi 00:00:00 00:00:[address] 3.430.2.7 0.2.7.3.698 Ho spita .3.055485 084.8 l .8 2022-08-18 2022-08-18 Refill [place], 1.2.840.1 [id number] 2099 [id number] Methodi 00:00:00 00:00:[address] 3.430.2.7 Hospit a .3.993052 l .8 2022-08-18 2022-08-18 Refill Huey, 1.2.840.1 [id number] 2099 [id number] Methodi 00:00:00 00:00:00 Jackelyn D [address]5215.1.[address] 3.430.2.7 Hospit a .3.596518 l .8 2022-08-18 2022-08-18 Refill [place], 1.2.840.1 [id number] 2100 [id number] Methodi 00:00:00 00:00:[address] 3.430.2.7 Hospit a .3.519248 l .8 2022-08-18 2022-08-18 Refill [place], 1.2.840.1 [id number] 2100 [id number] Methodi 00:00:00 00:00:00 Jackelyn D 42176.1.[address] 3.430.2.7 Hospit a .3.953602 l .8 2022-08-13 2022-08-13 Telephone Nilsa, 1.2.840.1 [id number] 21 [id number] Methodi 00:00:00 00:00:[address] 3.430.2.7 Hospit a .3.052731 l .8 2022-08-13 2022-08-13 Telephone Younis, 1.2.840.1 [id number] Methodi 00:00:00 00:00:[address] 3.430.2.7 Hospit a .3.673728 l .8 2022-08-12 2022-08-12 Office Younis, 1.2.840.1 [id number] 2099 [id number] Methodi 13:40:00 14:28:32 Visit John Jones50.1.[address] 3.430.2.7 Hospit a .3.913320 l .8 2022-08-12 2022-08-12 Office Younis, 1.2.840.1 [id number] 2100 196764 Methodi 13:40:00 14:28:32 Visit John Jones50.1.[address] 3.430.2.7 Hospit a .3.567944 l .8 2022-08-12 2022-08-12 Travel 1.2.840.1 1.2.018.228 9051 [id number] Methodi 00:00:00 00:00:[address] 3.430.2.7 0.2.7.3.698 Ho spita .3.422321 084.8 l .8 2022-08-12 2022-08-12 Travel 1.2.840.1 1.2.797.288 2221 703499 Methodi 00:00:00 00:00:[address] 3.430.2.7 0.2.7.3.698 Ho spita .3.913355 084.8 l .8 2022-07-14 2022-07-14 Travel 1.2.840.1 1.2.509.846 5611 548224 Methodi 00:00:00 00:00:[address] 3.430.2.7 0.2.7.3.698 Ho spita .3.578251 084.8 l .8 2022-07-14 2022-07-14 Travel 1.2.840.1 1.2.823.045 0984 161513 Methodi 00:00:00 00:00:[address] 3.430.2.7 0.2.7.3.698 Ho spita .3.457169 084.8 l .8 2022-03-13 2022-03-13 Refill Younis, 1.2.840.1 [id number] 2099 [id number] Methodi 00:00:00 00:00:00 John Prado 05596.1.[address] 3.430.2.7 Hospit a .3.824302 l .8 2022-02-28 2022-02-28 Refill Younis, 1.2.840.1 [id number] 2099 [id number] Methodi 00:00:00 00:00:00 John Dominguez. 20768.1.[address] 3.430.2.7 Hospit a .3.901317 l .8 2022-01-20 2022-01-20 Refill Younis, 1.2.840.1 [id number] 2099 [id number] Methodi 00:00:00 00:00:00 John AngelicaJosé 41822.1.[address] 3.430.2.7 Hospit a .3.992336 l .8 2022-01-07 2022-01-07 Office Younis, 1.2.840.1 [id number] 2099 [id number] Methodi 10:50:00 12:23:19 Visit John AngelicaJosé 54953.1.[address] 3.430.2.7 Hospit a .3.837296 l .8 2022-01-06 2022-01-06 Travel 1.2.840.1 1.2.658.463 7422 215904 Methodi 00:00:00 00:00:[address] 3.430.2.7 0.2.7.3.698 Ho spita .3.146444 084.8 l .8 2021-05-09 2021-05-09 Outpatient NILSA [facility] [id number] [address] [place] 00:00:00 00:00:00 JOHN [address] Results Test Description Test Time Test Comments Results Result Comments Source Basic metabolic panel 2023-04-03 01:06:00 Test Item Value Reference Range Interpretation Comme nts Glucose (test code = 104 mg/dL 65-99 H Fastin g reference 2345-7) interval For so meone without known d iabetes, a glucose valuebe tween 100 and 125 mg/dL i s consistent withprediabetes and should be confi rmed with afollow-up test . BUN (test code = 3094-0) 27 mg/dL 7-25 H Creatinine (test code = 1.25 mg/dL 0.60-0.95 H 2160-0) eGFR (test code = 42 See_Comment L The eGFR i s based on the 90598-9) CKD-EPI 2020 eq uation. To calculate the n ew eGFR from a previous Creatinine or C ystatin Cresult, go to https://www.kid meche.org/pr ofessionals/kdo qi/gfr%5Fc alculator [Auto mated message] The sy stem which generated this result transmitted ref erence range: > OR = 6 0 mL/min/1.73m2. The reference range was not used to interpr et this result as normal/abnormal . BUN/creatinine ratio 22 See_Comment [Autom ated message] The (test code = 3097-3) system which generated this result tra nsmitted reference range : 6 - 22 (calc). The ref erence range was not u sed to interpret this result as normal/abnormal . Sodium (test code = 142 mmol/L 531-794 9326-2) Potassium (test code = 4.6 mmol/L 3.5-5.3 2823-3) Chloride (test code = 111 mmol/L 98-110 H 2074-0) CO2 (test code = 2027-) 25 mmol/L 20-32 Calcium (test code = 8.9 mg/dL 8.6-10.4 94857-7) ASHLIE (test code = ASHLIE) FASTING:YES FASTING: YES RAC (test code = RAC) Performing Organization Information: Site ID: MENAA Name: [facility] Address: [address] [place] [id number] Director: Logan Soto Lab Interpretation (test Abnormal code = 78125-0) [facility] [id number] 18:27:00 Test Item Value Reference Range Interpretation Comments POC creatinine (test 2.2 mg/dl 0.5-0.9 H Operato r Name: code = 13960-2) Saracarlosmahendra DaleyJens Patel D: [id number] Lab Interpretation Abnormal (test code = 36829-0) [id number] 18:27:00 Test Item Value Reference Range Interpretation Comments Estimated GFR (test 20 mL/min/1.73 m2 A Sheridan machuca Units code = 54235-7) Interpretati onG1 >=90 Normal or highG 2 60-89 Mildly decrease dG3a 45-59 Mildly to moderately decr pxipgR9x 30-44 Moderatel y to severely decrea sedG4 15-29 Severely decreasedG5 <15 Kidney failureThe eGFR was calculated usin g the Chronic Kidney Disease Epidemiology Collaboration ( CKD-EPI) equation. Interpretation is based on recommendati ons of the National Ki dney Foundation-Kidn ey Disease Outcome s Quality Initiat carlos a (NKF-KDOQI) pub lished in 2013. Lab Interpretation Abnormal (test code = 07128-9) [facility]
--- NOTE | 2023-05-10 16:16 | RAD REPORT ---
EXAM DESCRIPTION: RAD - Elbow Left 3 View - 05/10/2023 4:11 pm CLINICAL HISTORY: PAIN COMPARISON: Knee Left 3 View dated 05/10/2023 FINDINGS/IMPRESSION: No acute fracture. No malalignment. No significant focal degenerative changes. Soft tissue swelling overlying the olecranon.
--- NOTE | 2023-05-10 16:16 | RAD REPORT ---
EXAM DESCRIPTION: RAD - Knee Left 3 View - 05/10/2023 4:11 pm CLINICAL HISTORY: PAIN COMPARISON: Knee Left 2 View dated 09/06/2022 FINDINGS/IMPRESSION: No acute fracture. No malalignment. Mild medial compartment narrowing and spurr ing. Mild patellofemoral compartment spurring.
--- NOTE | 2023-05-10 16:20 | RAD REPORT ---
EXAM DESCRIPTION: RAD - Femur Right - 05/10/2023 4:11 pm CLINICAL HISTORY: PAIN COMPARISON: No comparisons FINDINGS/IMPRESSION: No acute fracture. No malalignment. Mild right acetabular degenerative changes. Mild medial compartment narrowing. Vascular clips noted.
--- NOTE | 2023-05-10 16:20 | RAD REPORT ---
EXAM DESCRIPTION: RAD - Pelvis - 05/10/2023 4:11 pm CLINICAL HISTORY: PAIN COMPARISON: Pelvis dated 06/20/2022 FINDINGS/IMPRESSION: No acute fracture. No malalignment. Mild bilateral acetabular degenerative valencia ges. Moderate stool.
--- NOTE | 2023-05-10 16:25 | ER ---
Nurse's Notes [facility] Name: Corina Hernandez Age: 87 yrs Sex: Female : 1935 Arrival Date: 05/10/2023 Time: 14:59 Bed 18 Private MD: Angelica Yadav C Diagnosis: Contusion of left knee;Contusion of left elbow;Pain in right hip Presentation: 05/10 15:25 Chief complaint: Patient states: Fell approximately 2 weeks ago and last night (walker ll1 got away from her). L knee and L elbow pain. R outer thigh pain. Can stand and pivot. Coronavirus screen: Vaccine status: Patient reports receiving the 2nd dose of the covid vaccine. Client denies travel out of the [place] in the last 14 days. At this time, the client does not indicate any symptoms associated with coronavirus-19. Ebola Screen: Patient denies travel to an Ebola-affected area in the 21 days before illness onset. Initial Sepsis Screen: Does the patient meet any 2 criteria? No. Patient's initial sepsis screen is negative. Does the patient have a suspected source of infection? Yes: Bone or joint infection. Risk Assessment: Do you want to hurt yourself or someone else? Patient reports no desire to harm self or others. Onset of symptoms was April 30, 2023. 15:25 Method Of Arrival: Wheelchair ll1 15:25 Acuity: MARLINE 3 ll1 16:44 Care prior to arrival: None. Mechanism of Injury: Fall. Trauma event details: Injury ll1 occurred in the [facility]. Triage Assessment: 15:27 General: Appears uncomfortable, Behavior is calm, cooperative, appropriate for age. ll1 Pain: Complains of pain in left arm and left leg Quality of pain is described as aching. Musculoskeletal: Circulation, motion, and sensation intact. Capillary refill < 3 seconds, Swelling present in left leg Reports pain in left arm, right leg and left leg. Injury Description: Bruise. Trauma Activation: Not Applicable Physician: ED Physician; Name: ; Notified At: ; Arrived At: Physician: General Surgeon; Name: ; Notified At: ; Arrived At: Physician: Radiology; Name: ; Notified At: ; Arrived At: Physician: Respiratory; Name: ; Notified At: ; Arrived At: Physician: Lab; Name: ; Notified At: ; Arrived At: Historical: - Allergies: 15:26 Codeine; ll1 - PMHx: 15:26 Congestive heart failure; Hypertensive disorder; Hypothyroidism; hydroceohalus; ll1 - PSHx: 15:26 Coronary artery bypass graft; spinal tap for hydrocephalus; ll1 - Immunization history:: Client reports receiving the 2nd dose of the Covid vaccine. - Social history:: Smoking status: Patient denies any tobacco usage or history of. - Immunization history: Last tetanus immunization: - up to date. Screenin:39 [facility] ED Fall Risk Assessment (Adult) History of falling in the last 3 months, ll1 including since admission Yes- fall prone (multiple falls) (3 pts) Impaired Gait Yes (1 pt) Mobility Assist Device Used Yes (1 pt) Score/Fall Risk Level 3 or more points = High Risk Oriented to surroundings, Maintained a safe environment, Educated pt \T\ family on fall prevention, incl call for assistance when getting out of bed, Provided non-skid footwear, Hourly rounding (assess needs \T\ fall precautionary measures) done, Used ambulatory aids as needed (educated on \T\ assisted with), Implemented a Fall Risk Plan of Care, Utilized family, sitter, or virtual quarry plant crusher operator as indicated. Abuse screen: Denies threats or abuse. Nutritional screening: No deficits noted. Tuberculosis screening: No symptoms or risk factors identified. Primary Survey: 16:40 NO uncontrolled hemorrhage observed. A: The client is awake and alert. The airway is ll1 patent. Breathing/Chest: Spontaneous respiratory effort, equal unlabored respirations, breath sounds clear bilaterally, regular pattern, symmetrical chest rise and fall. Circulation: No external hemorrhage present. Regular and strong central pulse, skin warm/dry/normal color. Disability Client is alert. Exposure/Environment: A warming method has been applied: A warm blanket has been provided to the patient. 16:40 Reassessment Breathing: Spontaneous respiratory effort, equal unlabored respirations, ll1 breath sounds clear bilaterally, regular pattern with symmetrical chest rise and fall. Assessment: 16:24 Reassessment: No changes from previously documented assessment. Latasha TORRES at BS. ll1 16:39 Reassessment: No changes from previously documented assessment. Patient and/or family ll1 updated on plan of care and expected duration. Pain level reassessed. Patient is alert, oriented x 3, equal unlabored respirations, skin warm/dry/pink. Vital Signs: 15:25 BP 186 / 58; Pulse 58; Resp 17; Temp 98.3; Pulse Ox 96% on R/A; Weight 63.05 kg; Height ll1 5 ft. 2 in. ; 16:39 BP 160 / 49; Pulse 55; Resp 16; Pulse Ox 96% on R/A; ll1 15:25 Body Mass Index 25.42 (63.05 kg, 157.48 cm) ll1 Amos Coma Score: 16:40 Eye Response: spontaneous(4). Motor Response: obeys commands(6). Verbal Response: ll1 oriented(5). Total: 15. Trauma Score (Adult): 16:40 Eye Response: spontaneous(1); Verbal Response: oriented(1); Motor Response: obeys ll1 commands(2); Systolic BP: > 89 mm Hg(4); Respiratory Rate: 10 to 29 per min(4); Amos Score: 15; Trauma Score: 12 ED Course: 15:01 Patient arrived in ED. rg4 15:01 Angelica Yadav MD is Private Physician. rg4 15:01 Latasha Smith FNP-C [facility]. kb 15:02 Jared Castellanos DO is Attending Physician. kb 15:15 Arm band placed on Patient placed in an exam room, on a stretcher. ll1 15:23 Adelaida Delgado, RN is Primary Nurse. ll1 15:26 Triage completed. ll1 16:13 Knee Left 3 View XRAY In Process Unspecified. EDMS 16:13 Elbow Left 3 View XRAY In Process Unspecified. EDMS 16:13 Femur Right XRAY In Process Unspecified. EDMS 16:13 Pelvis XRAY In Process Unspecified. EDMS 16:40 No provider procedures requiring assistance completed. Patient did not have IV access ll1 during this emergency room visit. 16:44 Provided Education on: n/a. ll1 16:45 Patient has correct armband on for positive identification. Bed in low position. Call ll1 light in reach. Client placed on continuous cardiac and pulse oximetry monitoring. NIBP monitoring applied. 16:45 Patient maintains SpO2 saturation greater than 95% on room air. ll1 16:45 Thermoregulation: warm blanket given to patient. ll1 Administered Medications: No medications were administered Medication: 16:45 VIS not applicable for this client. ll1 Intake: 16:40 PO: 0ml; Total: 0ml. ll1 Output: 16:40 Urine: 0ml; Total: 0ml. ll1 Outcome: 16:25 Discharge ordered by . kb 16:44 Discharged to home via wheelchair. ll1 16:44 Condition: stable 16:44 Discharge instructions given to patient, family, Instructed on discharge instructions, follow up and referral plans. Demonstrated understanding of instructions, follow-up care. 16:45 Patient's length of stay was not longer than 2 hours. ll1 16:45 Patient left the ED. ll1 Signatures: Dispatcher [employer] EDMS Latasha Smith, HAIR WORKER-C HAIR WORKER-Kiley Mccormick rg4 Adelaida Delgado, RN RN ll1
--- NOTE | 2023-05-10 16:25 | EDPHYS ---
Physician Documentation [facility] Name: Corina Hernandez Age: 87 yrs Sex: Female : 1935 Arrival Date: 05/10/2023 Time: 14:59 Bed 18 Private MD: Angelica Yadav C ED Physician Jared Castellanos HPI: 05/10 16:39 This 87 yrs old Female presents to ER via Wheelchair with complaints of Fall Injury. kb 16:39 Details of fall: The patient fell from an upright position. Onset: The symptoms/episode kb began/occurred yesterday. Associated injuries: The patient sustained left knee, contusion, ecchymosis, painful injury, swelling, left elbow, painful injury, swelling, right hip, painful injury. Severity of symptoms: At their worst the symptoms were mild, moderate, in the emergency department the symptoms are unchanged. The patient has not experienced similar symptoms in the past. The patient has not recently seen a physician. Family reports pt fell onto left knee for the second time yesterday and they are concerned for a fracture. Pt states she was walking back to her room using a walker and the walker got away from her causing her to fall. Pt also reports left elbow and right hip pain from previous falls. . Historical: - Allergies: 15:26 Codeine; ll1 - PMHx: 15:26 Congestive heart failure; Hypertensive disorder; Hypothyroidism; hydroceohalus; ll1 - PSHx: 15:26 Coronary artery bypass graft; spinal tap for hydrocephalus; ll1 - Immunization history:: Client reports receiving the 2nd dose of the Covid vaccine. - Social history:: Smoking status: Patient denies any tobacco usage or history of. - Immunization history: Last tetanus immunization: - up to date. ROS: 16:37 Constitutional: Negative for fever, chills, and weight loss. kb 16:37 MS/extremity: Positive for pain, swelling, tenderness, of the right hip, left elbow and left knee. 16:37 All other systems are negative. Exam: 16:38 Constitutional: This is a well developed, well nourished patient who is awake, alert, kb and in no acute distress. Head/Face: Normocephalic, atraumatic. ENT: Moist Mucous membranes Cardiovascular: Regular rate and rhythm with a normal S1 and S2. No gallops, murmurs, or rubs. No pulse deficits. Respiratory: Respirations even and unlabored. No increased work of breathing. Talking in full sentences Abdomen/GI: Soft, non-tender. No distention Skin: Warm, dry with normal turgor. Normal color. Neuro: Awake and alert, GCS 15, oriented to person, place, time, and situation. Moves all extremities. Normal gait. 16:38 Musculoskeletal/extremity: Extremities: grossly normal except: noted in the left elbow: swelling, noted in the left knee: contusion, pain, swelling, tenderness, ROM: intact in all extremities, Circulation is intact in all extremities. Sensation intact. Weight bearing: can bear weight with assistance only, uses walker. Vital Signs: 15:25 BP 186 / 58; Pulse 58; Resp 17; Temp 98.3; Pulse Ox 96% on R/A; Weight 63.05 kg; Height ll1 5 ft. 2 in. ; 16:39 BP 160 / 49; Pulse 55; Resp 16; Pulse Ox 96% on R/A; ll1 15:25 Body Mass Index 25.42 (63.05 kg, 157.48 cm) ll1 Castle Coma Score: 16:40 Eye Response: spontaneous(4). Motor Response: obeys commands(6). Verbal Response: ll1 oriented(5). Total: 15. Trauma Score (Adult): 16:40 Eye Response: spontaneous(1); Verbal Response: oriented(1); Motor Response: obeys ll1 commands(2); Systolic BP: > 89 mm Hg(4); Respiratory Rate: 10 to 29 per min(4); Castle Score: 15; Trauma Score: 12 MDM: 15:02 Patient medically screened. kb 16:38 Differential diagnosis: contusion, fracture, strain. Data reviewed: vital signs, nurses kb notes. Historians other than the Patient: Daughter/Son: daughter. Counseling: I had a detailed discussion with the patient and/or guardian regarding: the historical points, exam findings, and any diagnostic results supporting the discharge/admit diagnosis, radiology results, the need for outpatient follow up, a family practitioner, to return to the emergency department if symptoms worsen or persist or if there are any questions or concerns that arise at home. 05/10 15:09 Order name: Knee Left 3 View XRAY; Complete Time: 16:18 kb 05/10 15:09 Order name: Elbow Left 3 View XRAY; Complete Time: 16:18 kb 05/10 15:09 Order name: Femur Right XRAY; Complete Time: 16:22 kb 05/10 15:09 Order name: Pelvis XRAY; Complete Time: 16:22 kb 05/10 16:25 Order name: Ice pack; Complete Time: 16:29 kb Administered Medications: No medications were administered Disposition: 16:40 Co-signature as Attending Physician, Jared Castellanos DO I was immediately available on-site ms3 in the Emergency Department for consultation in the care of the patient. Disposition Summary: 05/10/23 16:25 Discharge Ordered Location: Home kb Condition: Stable kb Diagnosis - Contusion of left knee kb - Contusion of left elbow kb - Pain in right hip kb Followup: kb - With: Emergency Department - When: As needed - Reason: Worsening of condition Followup: kb - With: Private Physician - When: 2 - 3 days - Reason: Recheck today's complaints, Continuance of care, Re-evaluation by your physician Discharge Instructions: - Discharge Summary Sheet kb - Musculoskeletal Pain kb - Contusion, [id number]-vx-[id number] kb Forms: - Medication Reconciliation Form kb - Thank You Letter kb - Antibiotic Education kb - Prescription Opioid Use kb - Patient Portal Instructions kb Signatures: Dispatcher [employer] Latasha Keller FNP-C FNP-Adelaida Arrington, RN RN ll1 Jared Castellanos, DO MEANS ms3
[2023-05-10 16:50] VITALS: TEMP 98.3; O2SAT 96
[2023-05-10 16:51] VITALS: BP 160/49
== END 2023-05-10 16:45 | disposition home or self-care (01) ==
LOC: ER 14:59
DX: S80.02XA Contusion of left knee, initial encounter (principal); S50.02XA Contusion of left elbow, initial encounter; M25.551 Pain in right hip; Z88.5 Allergy status to narcotic agent
CPT/HCPCS: 72170; 99285

== ENCOUNTER 2023-05-12 17:45 | Emergency (ER) | payer OTHER ==
--- OUTSIDE RECORDS SUMMARY | 2023-05-12 17:50 | XMS REPORT | Continuity of Care Document ---
:1935 Author Organization [facility] t Address 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 [...] Joint Me thodi e-Simvas ty to Comments) [address] tatin adverse 00:00: cramping [...] Date Source Maternal grandfather No Known Problems [facility] Maternal grandmother No Known Problems [facility] Natural mother No Known Problems [facility] Paternal grandfather No Known Problems [facility] Paternal grandmother No Known Problems [facility] Natural brother Diabetes [facility] Natural father Heart attack [facility] Natural father [facility] Natural sister Diabetes [facility] Natural son Heart failure [facility] son Hyperlipidemia [facility] son Hypertension [facility] Natural son Sleep apnea [facility] Social History Social Habit Start Date Stop Date Quantity Comments Source Gender identity [facility] Sexual orientation Method [facility] Alcohol intake 2023-03-27 2023-03-27 [facility] 00:00:00 00:00:00 non-drinker Hospital (finding) History of Social 2023-03-27 2023-03-[address] function 00:00:00 00:00:00 Hospital Tobacco use and 2022-08-12 2022-08-12 Smokeless [facility] exposure 00:00:00 00:00:00 tobacco non-user Hospital Sex Assigned At [birth year] [facility] 00:[facility]:00 Hospital Smoking Status Start Date Stop Date Source Never smoked tobacco [facility] Medications Ordered Filled Start Stop Current Ordering Indication Dosage Frequency Signature Comments Components Source Medication Medication Date Date Medication? Clinician (SIG) Name Name rosuvastati Yes [id number] 5mg Q.5W Take 1 Methodi n (CRESTOR) 7-13 tablet (5 st 5 mg tablet 00:00: mg total) H ospita 00 by mouth 2 l (two) times a week. rosuvastati 2022-0 Yes [id number] 5mg Q.5W Take 1 Methodi n (CRESTOR) 7-13 tablet (5 st 5 mg tablet 00:00: mg total) H ospita 00 by mouth 2 l (two) times a week. dapaglifloz 2022-0 2022- No QD Take by Me thodi in 04-[address] ([facility]) 11:46: 00:00 daily. Hospi ta 10 mg 36 :00 l tablet dapaglifloz 2022-0 2022- No QD Take by Me thodi in 04-[address] ([facility]) 11:46: 00:00 daily. Hospi ta 10 mg 36 :00 l tablet doxazosin 2022-0 Yes [id number] 2mg QD Take 1 Me thodi (CARDURA) 2 7-12 tablet (2 st MG tablet 00:00: mg total) Hos lizzy 00 by mouth l nightly. aspirin 2022-0 Yes [id number] 81mg QD Take 1 Met hodi (ECOTRIN) 7-12 tablet (81 st 81 MG 00:00: mg total) Hospita enteric 00 by mouth l coated daily. tablet clonIDINE 2022-0 Yes [id number] .1mg Q4H Take 1 Me thodi (CATAPRES) 7-[address] 0.1 MG 00:00: (0.1 mg Hospita tablet 00 total) by l mouth every 4 (four) hours as needed (htn). For SBP>180 hydrALAZINE 2022-0 Yes [id number] 25mg Q.5D Take 1 Methodi (APRESOLINE 7-12 tablet (25 st ) 25 MG 00:00: mg total) Hospi ta tablet 00 by mouth 2 l (two) times a day. nitroglycer 2022-[address] 1 Met hodi in 7-[address] (NITROSTAT) 00:00: (0.4 mg Hos lizzy 0.4 MG SL 00 total) l tablet under the tongue every 5 (five) minutes as needed for chest pain. Not to exceed 3 doses in 15min. olmesartan 2023-0 Yes 40mg QD Take 1 Metho di (BENICAR) 7-12 tablet (40 st 40 MG 00:00: mg total) Hospita tablet 00 by mouth l daily. torsemide 2023-0 Yes 20mg Q.5D Take 1 Method i (DEMADEX) 7-12 tablet (20 st 20 MG 00:00: mg total) Hospita tablet 00 by mouth 2 l (two) times a day. amIODarone 3-0 Yes 200mg QD Take 1 Meth lore (PACERONE) 7-[address] 200 MG 00:00: (200 mg Hospita tablet 00 total) by l mouth daily. dapaglifloz 3-0 Yes 10mg QD Take 1 Meth lore in 7-12 tablet (10 st propanediol 00:00: mg total) H ospita (FARXIGA) 00 by mouth l 10 mg daily. tablet doxazosin 3-0 Yes [id number] 2mg QD Take 1 Me thodi (CARDURA) 2 7-12 tablet (2 st MG tablet 00:00: mg total) Hos lizzy 00 by mouth l nightly. aspirin 3-0 Yes [id number] 81mg QD Take 1 Met hodi (ECOTRIN) 7-12 tablet (81 st 81 MG 00:00: mg total) Hospita enteric 00 by mouth l coated daily. tablet clonIDINE 3-0 Yes [id number] .1mg Q4H Take 1 Me thodi (CATAPRES) 7-[address] 0.1 MG 00:00: (0.1 mg Hospita tablet 00 total) by l mouth every 4 (four) hours as needed (htn). For SBP>180 hydrALAZINE 2023-0 Yes [id number] 25mg Q.5D Take 1 Methodi (APRESOLINE 7-12 tablet (25 st ) 25 MG 00:00: mg total) Hospi ta tablet 00 by mouth 2 l (two) times a day. nitroglycer 2023-[address] 1 Met hodi in 7-[address] (NITROSTAT) 00:00: (0.4 mg Hos lizzy 0.4 MG SL 00 total) l tablet under the tongue every 5 (five) minutes as needed for chest pain. Not to exceed 3 doses in 15min. olmesartan 2023-0 Yes 40mg QD Take 1 Metho di (BENICAR) 7-12 tablet (40 st 40 MG 00:00: mg total) Hospita tablet 00 by mouth l daily. torsemide 2023-0 Yes 20mg Q.5D Take 1 Method i (DEMADEX) 7-12 tablet (20 st 20 MG 00:00: mg total) Hospita tablet 00 by mouth 2 l (two) times a day. amIODarone 2023-0 Yes 200mg QD Take 1 Meth lore (PACERONE) 7-[address] 200 MG 00:00: (200 mg Hospita tablet 00 total) by l mouth daily. dapaglifloz 2023-0 Yes 10mg QD Take 1 Meth lore in 7-12 tablet (10 st propanediol 00:00: mg total) H ospita (FARXIGA) 00 by mouth l 10 mg daily. tablet doxazosin 2023-0 2023- No [id number] 2mg QD Take 1 M ethodi (CARDURA) 2 04-20-12 tablet (2 st MG tablet 00:00: 00:00 mg total) Ho spita 00 :00 by mouth l nightly. doxazosin 2023-0 2023- No [id number] 2mg QD Take 1 M ethodi (CARDURA) 2 04-20-12 tablet (2 st MG tablet 00:00: 00:00 mg total) Ho spita 00 :00 by mouth l nightly. nitroglycer 2023-0 2023- No .4mg Place 0.4 Methodi in -08 05-[address] (NITROSTAT) 13:36: 00:00 the tongue Hospita 0.4 MG SL 33 :00 every 5 l tablet (five) minutes as needed. Not to exceed 3 doses in 15min. nitroglycer 2023-0 2023- No .4mg Place 0.4 Methodi in 5-08 05-[address] (NITROSTAT) 13:36: 00:00 the tongue Hospita 0.4 MG SL 33 :00 every 5 l tablet (five) minutes as needed. Not to exceed 3 doses in 15min. nitroglycer 2023-0 2023- No .4mg Place 0.4 Methodi in 5-08 05-[address] (NITROSTAT) 13:36: 00:00 [...] No .4mg Place 1 Me thodi in 02-[address] (NITROSTAT) 00:00: 00:00 (0.4 mg Ho spita 0.4 MG SL 00 :00 total) l tablet under the tongue every 5 (five) minutes as needed for chest pain. Not to exceed 3 doses in 15min. amIODarone 2023-0 2023- No 200mg QD Take 1 Met hodi (PACERONE) 02-[address] 200 MG 00:00: 00:00 (200 mg Hospita tablet 00 :00 total) by l mouth daily. nitroglycer 2023-0 2023- No .4mg Place 1 Me thodi in 02-[address] (NITROSTAT) 00:00: 00:00 (0.4 mg Ho spita 0.4 MG SL 00 :00 total) l tablet under the tongue every 5 (five) minutes as needed for chest pain. Not to exceed 3 doses in 15min. amIODarone 2023-0 2023- No 200mg QD Take 1 Met hodi (PACERONE) 02-[address] 200 MG 00:00: 00:00 (200 mg Hospita tablet 00 :00 total) by l mouth daily. levothyroxi 2023-0 Yes 150ug QD Take 1 Met hodi ne 02-[address] (SYNTHROID) 14:15: (150 mcg Ho spita 150 mcg 36 total) by l tablet mouth every morning. dapaglifloz 2023-0 Yes QD Take by Met hodi in [...] total) by l tablet mouth every morning. iron Yes Take by Methodi fum/vit 5-02 [...] l nightly as needed for sleep. iron 0 Yes Take by Methodi fum/vit 5-02 mouth. [...] l (two) times a day. torsemide 2022-0 202- No 20mg Q.5D Take 1 Metho di [...] l (two) times a day. torsemide 2022-0 Yes 20mg Q.5D Take 1 Method i (DEMADEX) 3-13 tablet (20 st 20 MG 00:00: mg total) Hospita tablet 00 by mouth 2 l (two) times a day. torsemide 2022-0 2022- No 20mg Q.5D Take 1 Metho di (DEMADEX) 3-13 07- tablet (20 st 20 MG 00:00: 00:00 mg total) Hospit a tablet 00 :00 by mouth 2 l (two) times a day. torsemide 2022-0 2023- No 20mg Q.5D Take 1 Metho di (DEMADEX) 12-22- tablet (20 st 20 MG 00:00: 00:00 mg total) Hospit a tablet 00 :00 by mouth 2 l (two) times a day. doxazosin 3-0 Yes [id number] TAKE 1 Me thodi (CARDURA) 2 2-20 TABLET(2 st MG tablet 00:00: MG) BY Hospit a 00 MOUTH l EVERY NIGHT doxazosin 3-0 2023- No [id number] TAKE 1 M ethodi (CARDURA) 2 2-20 07-10 TABLET(2 st MG tablet 00:00: 00:00 MG) BY Hospi ta 00 :00 MOUTH l EVERY NIGHT doxazosin 3-0 3- No [id number] TAKE 1 M ethodi (CARDURA) 2 2-20 07-10 TABLET(2 st MG tablet 00:00: 00:00 MG) BY Hospi ta 00 :00 MOUTH l EVERY NIGHT olmesartan 2022-0 Yes 40mg QD Take 1 Metho di (BENICAR) 11-03 tablet (40 st 40 MG 00:00: mg total) Hospita tablet 00 by mouth l daily. olmesartan 3-0 3- No 40mg QD Take 1 Meth lore (BENICAR) 11-03 tablet (40 st 40 MG 00:00: 00:00 mg total) Hospit a tablet 00 :00 by mouth l daily. olmesartan 3-0 2023- No 40mg QD Take 1 Meth lore (BENICAR) 11-03- tablet (40 st 40 MG 00:00: 00:00 mg total) Hospit a tablet 00 :00 by mouth l daily. amIODarone 2022-0 3- No 200mg QD Take 1 Met hodi (PACERONE) 10-24 05-[address] 200 MG 00:00: 00:00 (200 mg Hospita tablet 00 :00 total) by l mouth daily. amIODarone 3-0 2023- No 200mg QD Take 1 Met hodi (PACERONE) 10-24-[address] 200 MG 00:00: 00:00 (200 mg Hospita tablet 00 :00 total) by l mouth daily. amIODarone No 200mg QD Take 1 Met hodi (PACERONE) 10-24 05-[address] 200 MG 00:00: 00:00 (200 mg Hospita tablet 00 :00 total) by l mouth daily. doxazosin 2021-10 Yes [id number] 2mg QD Take 1 Me thodi (CARDURA) 2 10-18 tablet (2 st MG tablet 00:00: mg total) Hos lizzy 00 by mouth l nightly. doxazosin 2021-10 No [id number] 2mg QD Take 1 M ethodi (CARDURA) 2 10-1820 tablet (2 st MG tablet 00:00: 00:00 mg total) Ho spita 00 :00 by mouth l nightly. doxazosin 2021-10 No [id number] 2mg QD Take 1 M ethodi (CARDURA) 2 10-1820 tablet (2 st MG tablet 00:00: 00:00 mg total) Ho spita 00 :00 by mouth l nightly. doxazosin 2021-10 No [id number] 2mg QD Take 1 M ethodi (CARDURA) [...] Hospita 21 :00 daily. l vit 2021-10 No 1{capsu Q.5D Take 1 Methodi C/E/Zn/danuta 10-12 le} capsule by s t r/lutein/ze 14:15: 00:00 mouth 2 Ho spita axan 21 :00 (two) l (PRESERVISI times a ON AREDS-2 day. ORAL) ZINC 2021-10 No 1{tbl} QD Take 1 Methodi ACETATE 10-[address] ORAL 14:15: 00:00 mouth Hospita 21 :00 daily. l vit 2021-10 No 1{capsu Q.5D Take 1 Methodi C/E/Zn/danuta [...] 14 :00 daily. l tablet ferrous 2021-10 No 1{tbl} QD Take 1 Metho di fumarate 10-[address] 324 mg (106 14:15: 00:00 mouth [facility] mg iron) 14 :00 daily. l tablet ferrous 2021-10 No 1{tbl} QD Take 1 [...] needed for l tablet mild pain. acetaminoph 2021-10- No 500mg Take 500 Methodi en 10-[address] (TYLENOL) 14:15: 00:00 mouth as Hos lizzy 500 MG 07 :00 needed for l tablet mild pain. acetaminoph 2021-10 No 500mg Take 500 Methodi en 10-[address] (TYLENOL) 14:15: 00:00 mouth as Hos lizzy 500 MG 07 :00 needed for l tablet mild pain. acetaminoph 2021-10- No 500mg Take 500 Methodi [...] PLUS VITAMIN C ORAL) torsemide 2021-10 Yes [id number] 40mg QD Take 40 mg Methodi 40 mg 10-[address] tablet 00:00: daily. Hospita 00 Takes l 1/2(10) tablet torsemide 2021-10- No [id number] 40mg QD Take 40 mg Methodi 40 mg 10-[address] tablet 00:00: 00:00 daily. Hospita 00 :00 Takes l 1/2(10) tablet torsemide 2021-10- No [id number] 40mg QD Take 40 mg Methodi 40 mg 10-[address] tablet 00:00: 00:00 daily. Hospita 00 :00 Takes l 1/2(10) tablet torsemide 2021-10- No [id number] 40mg QD Take 40 mg Methodi 40 mg 10-[address] tablet 00:00: 00:00 daily. Hospita 00 :00 Takes l 1/2(10) tablet torsemide 2021-10- No [id number] 20mg Q.5D Take 1 M ethodi (DEMADEX) 10-12 tablet (20 st 20 MG 00:00: 00:00 mg total) Hospit a tablet 00 :00 by mouth 2 l (two) times a day. Takes 1/2(10) tablet torsemide 2021-10- No [id number] 20mg Q.5D Take 1 M ethodi (DEMADEX) 10-12 tablet (20 st 20 MG 00:00: 00:00 mg total) Hospit a tablet 00 :00 by mouth 2 l (two) times a day. Takes 1/2(10) tablet torsemide 2021-10- No [id number] 20mg Q.5D Take 1 M ethodi (DEMADEX) 10-12 tablet (20 st 20 MG 00:00: 00:00 mg total) Hospit a tablet 00 :00 by mouth 2 l (two) times a day. Takes 1/2(10) tablet torsemide 2021-10- No [id number] 20mg Q.5D Take 1 M ethodi (DEMADEX) [...] Hospit a tablet 00 DAILY l olmesartan 2021-0 2022- No TAKE [...] 00 :00 DAILY l doxazosin 2021- No [id number] TAKE 1 M ethodi (CARDURA) 2 5-20 -[address] MG tablet 00:00: 00:00 MOUTH ONCE H ospita 00 :00 NIGHTLY l BEFORE BED doxazosin 0 2021- No [id number] TAKE 1 M ethodi (CARDURA) 2 5-20 -[address] MG tablet 00:00: 00:00 MOUTH ONCE H ospita 00 :00 NIGHTLY l BEFORE BED doxazosin 2021- No [id number] TAKE 1 M ethodi (CARDURA) 2 520 - TABLET BY st MG tablet 00:00: 00:00 MOUTH ONCE H ospita 00 :00 NIGHTLY l BEFORE BED doxazosin 2021- No [id number] TAKE 1 M ethodi (CARDURA) 2 02-28- TABLET BY st MG tablet 00:00: 00:00 MOUTH ONCE H ospita 00 :00 NIGHTLY l BEFORE BED hydrALAZINE 2021- Yes [id number] TAKE 1 Methodi (APRESOLINE 4-[address] ) 50 MG 00:00: MOUTH 3 Hospita tablet 00 TIMES l DAILY hydrALAZINE Yes [id number] TAKE 1 Methodi (APRESOLINE 4-[address] ) 50 MG 00:00: MOUTH 3 Hospita tablet 00 TIMES l DAILY hydrALAZINE 0 2022- No [id number] TAKE 1 [facility]i (APRESOLINE 4-11 07-[address] ) 50 MG 00:00: 00:00 MOUTH 3 Hospit a tablet 00 :00 TIMES l DAILY hydrALAZINE 0 2022- No [id number] TAKE 1 [facility]i (APRESOLINE 4-11 07-[address] ) 50 MG 00:00: 00:00 MOUTH 3 Hospit a tablet 00 :00 TIMES l DAILY rosuvastati 2021-0 Yes [id number] 5mg Q.5W Take 1 Methodi n (CRESTOR) 3-31 tablet (5 st 5 mg tablet 00:00: mg total) H ospita 00 by mouth 2 l (two) times a week. rosuvastati 2021-0 Yes [id number] 5mg Q.5W Take 1 Methodi n (CRESTOR) 3-31 tablet (5 st 5 mg tablet 00:00: mg total) H ospita 00 by mouth 2 l (two) times a week. rosuvastati 2022- No [id number] 5mg Q.5W Take 1 Methodi n (CRESTOR) 01-09 tablet (5 st 5 mg tablet 00:00: 00:00 mg total) Hospita 00 :00 by mouth 2 l (two) times a week. rosuvastati 2022- No [id number] 5mg Q.5W Take 1 Methodi n (CRESTOR) 01-09 tablet (5 st 5 mg tablet 00:00: [...] .1mg Q4H Take 0.1 Met hodi (CATAPRES) 01-[address] 0.1 MG 12:14: 00:00 [...] a l week. hydrALAZINE 2021- No 50mg Q.[id number] Take 50 mg Methodi (APRESOLINE 01-07 [id number] by mouth 3 st ) 50 MG [...] mouth Hospita 12 :00 daily. l ascorbic No 1000mg QD Take 1,000 Methodi acid, 01-[address] vitamin C, 11:51: 00:00 mouth Hospi ta (VITAMIN C) 12 :00 daily. l 1000 MG tablet ibuprofen No 200mg Q6H Take 200 Me thodi (ADVIL) 200 01-[address] MG tablet 11:51: 00:00 mouth Hospit a 12 :00 every 6 l (six) hours as needed. aspirin Yes [id number] 81mg QD Take 1 Met hodi (ECOTRIN) 3-29 tablet (81 st 81 MG 00:00: mg total) Hospita enteric 00 by mouth l coated daily. tablet clonIDINE Yes [id number] .1mg Q4H Take 1 Me thodi (CATAPRES) 3-[address] 0.1 MG 00:00: (0.1 mg Hospita tablet 00 total) by l mouth every 4 (four) hours as needed (htn). For SBP>180 aspirin Yes [id number] 81mg QD Take 1 Met hodi (ECOTRIN) 3-29 tablet (81 st 81 MG 00:00: mg total) Hospita enteric 00 by mouth l coated daily. tablet clonIDINE Yes [id number] .1mg Q4H Take 1 Me thodi (CATAPRES) 01-[address] 0.1 MG 00:00: (0.1 mg Hospita tablet 00 total) by l mouth every 4 (four) hours as needed (htn). For SBP>180 aspirin 2022- No [id number] 81mg QD Take 1 Me thodi (ECOTRIN) 01-0712 tablet (81 st 81 MG 00:00: 00:00 mg total) Hospit a enteric 00 :00 by mouth l coated daily. tablet clonIDINE 2022- No [id number] .1mg Q4H Take 1 M ethodi (CATAPRES) 01-[address] 0.1 MG 00:00: 00:00 (0.1 mg Hospita tablet 00 :00 total) by l mouth every 4 (four) hours as needed (htn). For SBP>180 aspirin No [id number] 81mg QD Take 1 Me thodi (ECOTRIN) 01-07 tablet (81 st 81 MG 00:00: 00:00 mg total) Hospit a enteric 00 :00 by mouth l coated daily. tablet clonIDINE 2022- No [id number] .1mg Q4H Take 1 M ethodi (CATAPRES) 01-[address] 0.1 MG 00:00: 00:00 (0.1 mg Hospita tablet 00 :00 total) by l mouth every 4 (four) hours as needed (htn). For SBP>180 torsemide No [id number] 10mg Take 0.5 Methodi (DEMADEX) 01-[address] 20 MG 00:00: 00:00 (10 mg Hospita tablet 00 :00 total) by l mouth take as directed (s). Takes 1/2(10) tablet torsemide No [id number] 10mg Take 0.5 Methodi (DEMADEX) 01-[address] 20 MG 00:00: 00:00 (10 mg Hospita tablet 00 :00 total) by l mouth take as directed (s). Takes 1/2(10) tablet torsemide No [id number] 10mg Take 0.5 Methodi (DEMADEX) 01-[address] 20 MG 00:00: 00:00 (10 mg Hospita tablet 00 :00 total) by l mouth take as directed (s). Takes 1/2(10) tablet torsemide No [id number] 10mg Take 0.5 Methodi (DEMADEX) 01-[address] 20 MG 00:00: 00:00 (10 mg Hospita tablet 00 :00 total) by l mouth take as directed (s). Takes 1/2(10) tablet doxazosin No [id number] 2mg QD Take 1 M ethodi (CARDURA) 2 01-07 0520 tablet (2 st MG tablet 00:00: 00:00 mg total) Ho spita 00 :00 by mouth l nightly. hydrALAZINE No [id number] 50mg Q.22012712 Take 1 Methodi (APRESOLINE 01-07 [id number] tablet (50 st ) 50 MG 00:00: 00:00 3D mg total) [facility] tablet 00 :00 by mouth 3 l (three) times a day. Vital Signs Vital Name Observation Time Observation Value Comments Source Systolic blood 2023-03-27 18:10:00 165 mm[Hg] Method [facility] Hospital pressure Diastolic blood 2023-03-27 18:10:00 55 [facility] pressure Heart rate 2023-03-27 18:10:00 47 /min [facility] Respiratory rate 2023-03-27 18:10:00 19 /min [facility] Body height 2023-03-27 18:10:00 157.5 cm [facility] Body weight 2023-03-27 18:10:00 67.586 kg [facility] BMI 2023-03-27 18:10:00 27.25 kg/m2 [facility] Oxygen saturation in 2023-03-27 18:10:00 96 /min [facility] Arterial blood by Pulse oximetry Systolic blood 2023-02-10 19:10:00 152 mm[Hg] [facility] pressure Diastolic blood 2023-02-10 19:10:00 61 mm[Hg] [facility] Hospital pressure Heart rate 2023-02-10 19:10:00 52 /min [facility] Respiratory rate 2023-02-10 19:10:00 12 /min [facility] Body height 2023-02-10 19:10:00 165.1 cm [facility] Body weight 2023-02-10 19:10:00 71.668 kg [facility] BMI 2023-02-10 19:10:00 26.29 kg/m2 [facility] Oxygen saturation in 2022-09-22 20:59:00 97 /min [facility] Arterial blood by Pulse oximetry Body weight 2022-08-12 18:50:00 71.668 kg [facility] BMI 2022-08-12 18:50:00 26.29 kg/m2 [facility] Oxygen saturation in 2022-08-12 18:50:00 98 /min [facility] Arterial blood by Pulse oximetry Systolic blood 2022-08-12 18:50:00 175 mm[Hg] [facility] pressure Diastolic blood 2022-08-12 18:50:00 66 mm[Hg] [facility] pressure Heart rate 2022-08-12 18:50:00 98 /min [facility] Body height 2022-08-12 18:50:00 165.1 cm [facility] Respiratory rate 2022-01-07 16:51:00 12 /min [facility] Procedures Procedure Date / Time Performed Performing Clinician [facility] e BASIC METABOLIC PANEL 2023-04-02 14:50:00 [facility] POC CREATININE 2023-03-27 18:17[facility] 2023-03-27 18:17:00 [facility] CV CARDIAC PET 2023-03-16 17:32:47 [facility] MYOCARDIAL PERFUSION IMAGING ECG 12-LEAD 2023-02-10 18:52:00 [facility] CV HOLTER MONITOR 48 2022-10-24 [facility]22 [facility] 2022-[facility]-22 21:07:00 Alexey [facility] ECG 12-LEAD 2022-01-07 16:55:00 [facility] Planned Activity Planned Date Details Comments Source Future Scheduled 2023-05-07 COVID-19 VACCINE (#1) [facility] Test 16:03:36 [code = COVID-19 VACCINE (#1)] Future Scheduled 2023-05-07 65+ PNEUMOCOCCAL [facility] Test 16:03:36 VACCINE (1 - PCV) [code = 65+ PNEUMOCOCCAL VACCINE (1 - PCV)] Future Scheduled 2023-05-07 SHINGLES VACCINES (1 Met [facility] Test 16:03:36 of 2) [code = SHINGLES VACCINES (1 of 2)] Future Scheduled 2023-05-07 INFLUENZA VACCINE Method [facility] Test 16:03:36 [code = INFLUENZA VACCINE] Future Scheduled 2023-05-07 COVID-19 VACCINE (#1) [facility] Test 16:03:36 [code = COVID-19 VACCINE (#1)] Future Scheduled 2023-05-07 65+ PNEUMOCOCCAL [facility] Test 16:03:36 VACCINE (1 - PCV) [code = 65+ PNEUMOCOCCAL VACCINE (1 - PCV)] Future Scheduled 2023-05-07 SHINGLES VACCINES (1 Met [facility] Test 16:03:36 of 2) [code = SHINGLES VACCINES (1 of 2)] Future Scheduled 2023-05-07 INFLUENZA VACCINE Method [facility] Test 16:03:36 [code = INFLUENZA VACCINE] Future Scheduled 2023-03-20 COVID-19 VACCINE (#1) [facility] Test 11:43:07 [code = COVID-19 VACCINE (#1)] Future Scheduled 2023-03-20 65+ [facility] VACCINE (1 - PCV) [code = 65+ PNEUMOCOCCAL VACCINE (1 - PCV)] Future Scheduled 2023-03-20 SHINGLES VACCINES (1 Met [facility] Test 11:43:07 of 2) [code = SHINGLES VACCINES (1 of 2)] Future Scheduled 2023-03-20 INFLUENZA VACCINE Method [facility] Test 11:43:07 [code = INFLUENZA VACCINE] Future Scheduled 2022-08-18 HEPATITIS B VACCINES Met [facility] Test 15:02:15 (1 of 3 - 3-dose series) [code = HEPATITIS B VACCINES (1 of 3 - 3-dose series)] Future Scheduled 2022-08-18 COVID-19 VACCINE (#1) [facility] Test 15:02:15 [code = COVID-19 VACCINE (#1)] Future Scheduled 2022-08-18 65+ PNEUMOCOCCAL Methodi [facility] Test 15:02:15 VACCINE (1 - PCV) [code = 65+ PNEUMOCOCCAL VACCINE (1 - PCV)] Future Scheduled 2022-08-18 SHINGLES VACCINES (1 Met [facility] Test 15:02:15 of 2) [code = SHINGLES VACCINES (1 of 2)] Future Scheduled 2022-08-18 INFLUENZA VACCINE Method [facility] Test 15:02:15 [code = INFLUENZA VACCINE] Encounters Start End Encounter Admission Attending Care Care Encounter Source Date/Time Date/Time Type Type Clinicians Facility Department ID 2023-04-27 2023-04-27 Telephone Miguel Angel [id number] 21 [id number] Methodi 00:00:00 00:00:[id number] 3.430.2.7 Hospit a .3.536176 l .8 2023-04-27 2023-04-27 Telephone Miguel Angel [id number] 21 [id number] Methodi 00:00:00 00:00:[id number] 3.430.2.7 Hospit a .3.315520 l .8 2023-04-22 2023-04-22 Reflenore Arzate [id number] Methodi 00:00:00 00:00:[address] Jack[address] Is[address] 3.430.2.7 Hospit a .3.395097 l .8 2023-04-22 2023-04-22 Boris Arzate 1.2.840.1 2099 [id number] Methodi 00:00:00 00:00:00 Jack[address] Is[address] 3.430.2.7 Hospit a .3.421010 l .8 2023-04-20 2023-04-20 Boris Michelle, 1.2.840.1 [id number] 2100 [id number] Methodi 00:00:00 00:00:[address] 3.430.2.7 Hospit a .3.347432 l .8 2023-04-20 2023-04-20 [facility], 1.2.840.1 [id number] 2099 [id number] Methodi 00:00:00 00:00:[address] 3.430.2.7 Hospit a .3.911384 l .8 2023-04-06 2023-04-06 Telephone Giveon, 1.2.840.1 [id number] 21 [id number] Methodi 00:00:00 00:00:[address] 3.430.2.7 Hospit a .3.742765 l .8 2023-04-06 2023-04-06 Telephone Giveon, 1.2.840.1 [id number] 21 [id number] Methodi 00:00:00 00:00:[address] 3.430.2.7 Hospit a .3.923532 l .8 2023-03-27 2023-03-27 [facility] 1.2.840.1 [id number] 72327 76222 Methodi 12:52:05 23:59:00 Encounter John DominguezJosé 52277.1.[address] 3.430.2.7 Hospit a .3.124978 l .8 2023-03-27 2023-03-27 [facility] 1.2.840.1 [id number] [id number] Methodi 12:52:05 23:59:00 Encounter John DominguezJosé 11914.1.[address] 3.430.2.7 Hospit a .3.999088 l .8 2023-03-27 2023-03-27 Telephone Giveon, 1.2.840.1 [id number] 21 [id number] Methodi 00:00:00 00:00:[address] 3.430.2.7 Hospit a .3.971076 l .8 2023-03-27 2023-03-27 Telephone Tracey, 1.2.840.1 [id number] 21 [id number] Methodi 00:00:00 00:00:[address] 3.430.2.7 Hospit a .3.587722 l .8 2023-03-17 2023-03-17 Travel 1.2.840.1 1.2.053.546 5885 315131 Methodi 00:00:00 00:00:[address] 3.430.2.7 0.2.7.3.698 Ho spita .3.066607 084.8 l .8 2023-03-17 2023-03-17 Travel 1.2.840.1 1.2.209.353 5539 130291 Methodi 00:00:00 00:00:[address] 3.430.2.7 0.2.7.3.698 Ho spita .3.673448 084.8 l .8 2023-03-16 2023-03-16 Orders Elais, 1.2.840.1 [id number] 2100 388479 Methodi 00:00:00 00:00:00 Only John Prado 43351.1.[address] 3.430.2.7 Hospit a .3.615183 l .8 2023-03-16 2023-03-16 Orders Alexey, 1.2.840.1 [id number] 2099 [id number] Methodi 00:00:00 00:00:00 Only John Prado 35897.1.[address] 3.430.2.7 Hospit a .3.318353 l .8 2023-03-12 2023-03-12 [facility] [id number] 687 [place] 00:00:00 00:00:[address] 2023-03-12 2023-03-12 Travel 1.2.840.1 1.2.202.645 4219 837479 Methodi 00:00:00 00:00:[address] 3.430.2.7 0.2.7.3.698 Ho spita .3.277950 084.8 l .8 2023-03-12 2023-03-12 Travel 1.2.840.1 1.2.366.665 8965 736118 Methodi 00:00:00 00:00:[address] 3.430.2.7 0.2.7.3.698 Ho spita .3.280250 084.8 l .8 2023-03-06 2023-03-06 Travel 1.2.840.1 1.2.266.532 8824 962008 Methodi 00:00:00 00:00:[address] 3.430.2.7 0.2.7.3.698 Ho spita .3.248647 084.8 l .8 2023-03-06 2023-03-06 Travel 1.2.840.1 1.2.138.629 7110 085599 Methodi 00:00:00 00:00:[address] 3.430.2.7 0.2.7.3.698 Ho spita .3.107963 084.8 l .8 2023-02-16 2023-02-16 Refill Miguel Angel 1.2.840.1 2099174 Methodi 00:00:00 00:00:[address] 3.430.2.7 Hospit a .3.441994 l .8 2023-02-16 2023-02-16 Refill Yasmine Boogie 1.2.840.1 [id number] Methodi 00:00:00 00:00:[address] 3.430.2.7 Hospit a .3.356135 l .8 2023-02-16 2023-02-16 Refill Miguel Angel 1.2.840.1 [id number] 2100 034012 Methodi 00:00:00 00:00:[address] 3.430.2.7 Hospit a .3.132897 l .8 2023-02-16 2023-02-16 Refill Yasmine Boogie 1.2.840.1 [id number] Methodi 00:00:00 00:00:[address] 3.430.2.7 Hospit a .3.269466 l .8 2023-02-10 2023-02-10 Office Younis, 1.2.840.1 [id number] 2099 075392 Methodi 13:30:00 14:45:42 Visit John Prado 00186.1.[address] 3.430.2.7 Hospit a .3.743546 l .8 2023-02-10 2023-02-10 Office Younis, 1.2.840.1 2099 [id number] Methodi 13:30:00 14:45:42 Visit John Prado 18977.1.[address] 3.430.2.7 Hospit a .3.751445 l .8 2023-02-10 2023-02-10 Travel 1.2.840.1 1.2.897.380 0289 518428 Methodi 00:00:00 00:00:[address] 3.430.2.7 0.2.7.3.698 Ho spita .3.213137 084.8 l .8 2023-02-10 2023-02-10 Travel 1.2.840.1 1.2.036.298 8841 930879 Methodi 00:00:00 00:00:[address] 3.430.2.7 0.2.7.3.698 Ho spita .3.020946 084.8 l .8 2022-12-22 2022-12-22 Refill Yasmine Boogie 1.2.840.1 [id number] Methodi 00:00:00 00:00:[address] 3.430.2.7 Hospit a .3.072679 l .8 2022-12-22 2022-12-22 Refill Yasmine Boogie 1.2.840.1 [id number] Methodi 00:00:00 00:00:[address] 3.430.2.7 Hospit a .3.228756 l .8 2022-12-18 2022-12-18 Telephone [place], 1.2.840.1 [id number] Methodi 00:00:00 00:00:[address] 3.430.2.7 Hospit a .3.794576 l .8 2022-12-18 2022-12-18 Telephone [place], 1.2.840.1 [id number] Methodi 00:00:00 00:00:[address] 3.430.2.7 Hospit a .3.434458 l .8 2022-11-29 2022-11-29 Refill Alexey, 1.2.840.1 [id number] 2100 [id number] Methodi 00:00:00 00:00:00 John Dominguez. 70791.1.[address] 3.430.2.7 Hospit a .3.724054 l .8 2022-11-29 2022-11-29 Refill Alexey, 1.2.840.1 [id number] 2099 [id number] Methodi 00:00:00 00:00:[address] John Dominguez. 16621.1.[address] 3.430.2.7 Hospit a .3.848596 l .8 2022-11-03 2022-11-03 Refill Yasmine Boogie 1.2.840.1 [id number] Methodi 00:00:00 00:00:[address] 3.430.2.7 Hospit a .3.174176 l .8 2022-11-032022-11-03 Yasmine Harman 1.2.840.1 [id number] Methodi 00:00:00 00:00:[address] 3.430.2.7 Hospit a .3.746395 l .8 2022-10-28 2022-10-28 Telephone Miguel Angel, 1.2.840.1 [id number] Methodi 00:00:00 00:00:[address] 3.430.2.7 Hospit a .3.202622 l .8 2022-10-28 2022-10-28 Telephone Miguel Angel, 1.2.840.1 [id number] 21 [id number] Methodi 00:00:00 00:00:[address] 3.430.2.7 Hospit a .3.389216 l .8 2022-10-24 2022-10-24 Telephone Harikellee, 1.2.840.1 [id number] Methodi 00:00:00 00:00:[address] 3.430.2.7 Hospit a .3.171111 l .8 2022-10-24 2022-10-24 Orders Alexey, 1.2.840.1 [id number] 2099 [id number] Methodi 00:00:00 00:00:00 Only John AngelicaJosé 27534.1.[address] 3.430.2.7 Hospit a .3.696912 l .8 2022-10-24 2022-10-24 Telephone Tracey, 1.2.840.1 [id number] Methodi 00:00:00 00:00:[address] 3.430.2.7 Hospit a .3.512585 l .8 2022-10-24 2022-10-24 Orders Alexey, 1.2.840.1 2099 752997 Methodi 00:00:00 00:00:00 Only John AngelicaJosé 46932.1.[address] 3.430.2.7 Hospit a .3.144900 l .8 2022-10-22 2022-10-22 Telephone Younis, 1.2.840.1 [id number] Methodi 00:00:00 00:00:00 John Dominguez. 97866.1.[address] 3.430.2.7 Hospit a .3.033631 l .8 2022-10-22 2022-10-22 Telephone Younis, 1.2.840.1 [id number] Methodi 00:00:00 00:00:00 John Dominguez. 70441.1.[address] 3.430.2.7 Hospit a .3.732395 l .8 2022-10-16 2022-10-16 Travel 1.2.840.1 1.2.463.876 2729 035190 Methodi 00:00:00 00:00:[address] 3.430.2.7 0.2.7.3.698 Ho spita .3.975072 084.8 l .8 2022-10-16 2022-10-16 Travel 1.2.840.1 1.2.566.540 5597 058920 Methodi 00:00:00 00:00:[address] 3.430.2.7 0.2.7.3.698 Ho spita .3.852279 084.8 l .8 2022-10-08 2022-10-08 Travel 1.2.840.1 1.2.482.172 4492 947387 Methodi 00:00:00 00:00:[address] 3.430.2.7 0.2.7.3.698 Ho spita .3.799899 084.8 l .8 2022-10-08 2022-10-08 Travel 1.2.840.1 1.2.989.883 2774 166823 Methodi 00:00:00 00:00:[address] 3.430.2.7 0.2.7.3.698 Ho spita .3.219743 084.8 l .8 2022-09-22 2022-09-22 Office Younis, 1.2.840.1 [id number] 2099 144410 Methodi 14:40:00 16:11:00 Visit John Prado 10393.1.[address] 3.430.2.7 Hospit a .3.398882 l .8 2022-09-22 2022-09-22 Office Younis, 1.2.840.1 [id number] Methodi 14:40:00 16:11:00 Visit John Prado 58856.1.[address] 3.430.2.7 Hospit a .3.857645 l .8 2022-09-22 2022-09-22 [facility] [id number] 592 [place] 00:00:00 00:00:[address] 2022-09-22 2022-09-22 Travel 1.2.840.1 1.2.240.608 7903 324701 Methodi 00:00:00 00:00:[address] 3.430.2.7 0.2.7.3.698 Ho spita .3.615805 084.8 l .8 2022-09-22 2022-09-22 Travel 1.2.840.1 1.2.337.468 0877 766675 Methodi 00:00:00 00:00:[address] 3.430.2.7 0.2.7.3.698 Ho spita .3.775773 084.8 l .8 2022-09-19 2022-09-19 Travel 1.2.840.1 1.2.833.194 3785 576564 Methodi 00:00:00 00:00:[address] 3.430.2.7 0.2.7.3.698 Ho spita .3.913038 084.8 l .8 2022-09-19 2022-09-19 Travel 1.2.840.1 1.2.031.431 4398 841612 Methodi 00:00:00 00:00:[address] 3.430.2.7 0.2.7.3.698 Ho spita .3.292669 084.8 l .8 2022-08-18 2022-08-18 Refill Young, 1.2.840.1 [id number] 2100 240075 Methodi 00:00:00 00:00:[address] 3.430.2.7 Hospit a .3.791459 l .8 2022-08-18 2022-08-18 Refill [place], 1.2.840.1 [id number] 2100 885585 Methodi 00:00:00 00:00:00 Jackelyn D [address]774.1.[address] 3.430.2.7 Hospit a .3.721278 l .8 2022-08-18 2022-08-18 Refill Young, 1.2.840.1 [id number] 2100 602683 Methodi 00:00:00 00:00:[address] 3.430.2.7 Hospit a .3.287363 l .8 2022-08-18 2022-08-18 Refill [place], 1.2.840.1 [id number] 2100 275299 Methodi 00:00:00 00:00:00 Jackelyn D [address]37.1.[address] 3.430.2.7 Hospit a .3.344379 l .8 2022-08-13 2022-08-13 Telephone Younis, 1.2.840.1 [id number] Methodi 00:00:00 00:00:00 John AJosé 36869.1.[address] 3.430.2.7 Hospit a .3.122518 l .8 2022-08-13 2022-08-13 Telephone Younis, 1.2.840.1 [id number] Methodi 00:00:00 00:00:00 John Prado 46221.1.[address] 3.430.2.7 Hospit a .3.366453 l .8 2022-08-12 2022-08-12 Office Younis, 1.2.840.1 [id number] 2099 028726 Methodi 13:40:00 14:28:32 Visit John Prado 84221.1.[address] 3.430.2.7 Hospit a .3.527501 l .8 2022-08-12 2022-08-12 Office Younis, 1.2.840.1 2099 056470 Methodi 13:40:00 14:28:32 Visit John Prado 10809.1.[address] 3.430.2.7 Hospit a .3.398325 l .8 2022-08-12 2022-08-12 Travel 1.2.840.1 1.2.180.027 8001 282265 Methodi 00:00:00 00:00:[address] 3.430.2.7 0.2.7.3.698 Ho spita .3.347406 084.8 l .8 2022-08-12 2022-08-12 Travel 1.2.840.1 1.2.634.976 0598 099841 Methodi 00:00:00 00:00:[address] 3.430.2.7 0.2.7.3.698 Ho spita .3.747705 084.8 l .8 2022-07-14 2022-07-14 Travel 1.2.840.1 1.2.331.626 0479 313115 Methodi 00:00:00 00:00:[address] 3.430.2.7 0.2.7.3.698 Ho spita .3.645031 084.8 l .8 2022-07-14 2022-07-14 Travel 1.2.840.1 1.2.632.849 3018 727202 Methodi 00:00:00 00:00:[address] 3.430.2.7 0.2.7.3.698 Ho spita .3.790701 084.8 l .8 2022-03-13 2022-03-13 Refill Younis, 1.2.840.1 [id number] 2099 [id number] Methodi 00:00:00 00:00:00 John Dominguez. 31544.1.[address] 3.430.2.7 Hospit a .3.778510 l .8 2022-02-28 2022-02-28 Refill Younis, 1.2.840.1 [id number] 2099 063159 Methodi 00:00:00 00:00:[address] John Prado 05526.1.[address] 3.430.2.7 Hospit a .3.633221 l .8 2022-01-20 2022-01-20 Refill Younis, 1.2.840.1 [id number] 2099 849937 Methodi 00:00:00 00:00:00 John Dominguez. 57559.1.[address] 3.430.2.7 Hospit a .3.781954 l .8 2022-01-07 2022-01-07 Office Younis, 1.2.840.1 [id number] 2099 462336 Methodi 10:50:00 12:23:19 Visit John Prado 44400.1.[address] 3.430.2.7 Hospit a .3.989423 l .8 2022-01-06 2022-01-06 Travel 1.2.840.1 1.2.623.993 2924 640393 Methodi 00:00:00 00:00:[address] 3.430.2.7 0.2.7.3.698 Ho spita .3.461355 084.8 l .8 2021-05-09 2021-05-09 Outpatient YOUNIS, [facility] [id number] [address] [place] [address] 00:00:00 00:00:[address] JOHN [address] [...] The eGFR i s based on the 47851-5) CKD-EPI 2020 eq uation. To calculate the [...] . Sodium (test code = 142 mmol/L 157-122 4365-2) Potassium (test code = 4.6 mmol/L 3.5-5.3 2823-3) Chloride (test code = 111 mmol/L 98-110 H 5-0) CO2 (test code = 2027-9) 25 mmol/L 20-32 Calcium (test code = 8.9 mg/dL 8.6-10.4 79585-8) ASHLIE (test code = ASHLIE) FASTING:YES FASTING: YES RAC (test code = RAC) Performing Organization Information: Site ID: RGA Name: [facility] Address: [address] [place] [id number] Director: Logan Soto Lab Interpretation (test Abnormal code = 12563-9) [facility] metabolic [id number] 01:06:00 Test Item Value Reference Interpretation Comments Range Glucose (test code 104 mg/dL 65-99 H Fasting reference = 2345-7) interval For so marshal without known diabetes, a glu cose valuebetween 10 0 and 125 mg/dL is consistent withprediabetes and should be confi rmed with afollow-up test. BUN (test code = 27 mg/dL 7-25 H 3094-0) Creatinine (test 1.25 mg/dL 0.60-0.95 H code = 2160-0) eGFR (test code = 42 See_Comment [place] [address]-0) the CKD-EPI 202 1 equation. To calculate the n ew eGFR from a pre vious Creatinine or Cystatin Cresul t, go to https://www.[employer].o rg/professional s/kdo qi/gfr%5Fcalcul ator [Automated mess age] The system [employer] h generated this result transmit kate reference range : > OR = 60 mL/min/1.73m2. The reference range was not used to interpret this result as normal/abnormal . BUN/creatinine 22 See_Comment [Automated m essage] ratio (test code = The syste m which 3097-3) generated this result transmit kate reference range : 6 - 22 (calc). The reference range was not used to interpret this result as normal/abnormal . Sodium (test code = 142 mmol/L 073-778 0468-2) Potassium (test 4.6 mmol/L 3.5-5.3 code = 2823-3) Chloride (test code 111 mmol/L 98-110 H = 5-0) CO2 (test code = 25 mmol/L 20-32 8-9) Calcium (test code 8.9 mg/dL 8.6-10.4 = 05083-2) ASHLIE (test code = FASTING:YES ASHLIE) FASTING: YES RAC (test code = Performing RAC) Organization Information: Site ID: RGA [facility] Address: [address] [place] [id number] Director: Logan Soto Lab Interpretation Abnormal (test code = 64808-7) [facility] [id number] 18:27:00 Test Item Value Reference Range Interpretation Comments POC creatinine (test 2.2 mg/dl 0.5-0.9 H Operato r Name: code = 51214-3) Mariana Hudson I D: [id number] Lab Interpretation Abnormal (test code = 77357-1) [id number] 18:27:00 Test Item Value Reference Range Interpretation Comments Estimated GFR (test 20 mL/min/1.73 m2 A Caterg ory Units code = 99226-1) Interpretati onG1 >=90 Normal or highG 2 60-89 Mildly decrease dG3a 45-59 Mildly to moderately decr ixgceY2t 30-44 Moderatel y to severely decrea sedG4 15-29 Severely decreasedG5 <15 Kidney failureThe eGFR was calculated usin g the Chronic Kidney Disease Epidemiology Collaboration ( CKD-EPI) equation. Interpretation is based on recommendati ons of the [facility] Open Wager [facility] Disease Outcome s Quality Initiat carlos a ([facility]) pub lished in 2013. Lab Interpretation Abnormal (test code = 77379-1) [facility] [id number] 18:27:00 Test Item Value Reference Range Interpretation Comments POC creatinine (test 2.2 mg/dl 0.5-0.9 H Operato r Name: code = 76894-7) Mariana Hudson I D: [id number] Lab Interpretation Abnormal (test code = 09447-2) [facility] [id number] 18:27:00 Test Item Value Reference Range Interpretation Comments Estimated GFR (test 20 mL/min/1.73 m2 A Caterg ory Units code = 69926-8) Interpretati onG1 >=90 Normal or highG 2 60-89 Mildly decrease dG3a 45-59 Mildly to moderately decr unnvrX2l 30-44 Moderatel y to severely decrea sedG4 15-29 Severely decreasedG5 <15 Kidney failureThe eGFR was calculated usin g the Chronic Kidney Disease Epidemiology Collaboration ( CKD-EPI) equation. Interpretation is based on recommendati ons of the [facility] Open Wager [facility] Disease Outcome s Quality Initiat carlos a ([facility]KDO[facility]) pub lished in 2014. Lab Interpretation Abnormal (test code = 26647-8) [facility]
[2023-05-12] MEDS ORDERED: FENTANYL CITR 100 MCG/2 ML ONE (18:45)
--- NOTE | 2023-05-12 19:08 | RAD REPORT ---
EXAM DESCRIPTION: RAD - Ribs Left - 05/12/2023 6:36 pm CLINICAL HISTORY: Left rib pain FINDINGS: No fracture is seen
--- NOTE | 2023-05-12 19:36 | RAD REPORT ---
EXAM DESCRIPTION: USExtremity Venous Uni Ltd05/12/2023 7:26 pm CLINICAL HISTORY: left leg pain COMPARISON: None FINDINGS: Left common femoral, superficial femoral, greater saphenous, popliteal and posterior tibi al veins are compressible and demonstrate augmentation. Doppler demonstrates good flow. Grayscale, color and spectral analysis performed on all vessels IMPRESSION: No evidence of deep venous thrombosis involving the left lower extremity.
--- NOTE | 2023-05-12 19:59 | EDPHYS ---
Physician Documentation [facility] Name: Corina Hernandez Age: 87 yrs Sex: Female : 1935 Arrival Date: 05/12/2023 Time: 17:45 Bed 17 Private MD: ED Physician Mayito Bartlett HPI: 05/12 18:05 This 87 yrs old Female presents to ER via Unassigned with complaints of left knee pain. sb4 18:05 The patient has been recently seen at the [facility] Emergency sb4 Department, last week. . 19:08 87-year-old female with past medical history of dementia, CKD 4, type 2 diabetes, sb4 hypertension, hypothyroidism, anemia, hydrocephalus presents to ED with complaints of left knee pain. Patient was seen here 10 days ago for a fall on her left knee. She had negative imaging at that time however her pain has persisted. She also complains of pain to her left rib cage. History is limited secondary to dementia. - Immunization history: Last tetanus immunization: unknown. ROS: 19:08 Constitutional: Negative for fever, chills, and weight loss, Eyes: Negative for injury, sb4 pain, redness, and discharge, ENT: Negative for injury, pain, and discharge, Cardiovascular: Negative for chest pain, palpitations, and edema, Respiratory: Negative for shortness of breath, cough, wheezing, and pleuritic chest pain, Abdomen/GI: Negative for abdominal pain, nausea, vomiting, diarrhea, and constipation, Back: Negative for injury and pain. 19:08 Neuro: Negative for headache, weakness, numbness, tingling, and seizure. 19:08 MS/extremity: Positive for contusion, ecchymosis, erythema, swelling, tenderness, warmth, of the left leg. 19:08 All other systems are negative. Exam: 19:08 Constitutional: This is a well developed, well nourished patient who is awake, alert, sb4 and in no acute distress. Head/Face: Normocephalic, atraumatic. Eyes: Extra-ocular motions intact. Periorbital areas with no swelling, redness, or edema. Cardiovascular: Regular rate and rhythm with a normal S1 and S2. Respiratory: Lungs have equal breath sounds bilaterally, clear to auscultation and percussion. No rales, rhonchi or wheezes noted. No increased work of breathing, no retractions or nasal flaring. Abdomen/GI: Soft, non-tender, no distension. Back: No spinal tenderness. No costovertebral tenderness. Full range of motion. Neuro: Awake and alert, GCS 15, oriented to person, place, time, and situation. Cranial nerves II-XII grossly intact. Motor strength 5/5 in all extremities. Sensory grossly intact. Cerebellar exam normal. Normal gait. 19:08 Musculoskeletal/extremity: ROM: limited active range of motion due to pain, limited passive range of motion due to pain, Circulation is intact in all extremities. Sensation intact. DVT Exam: negative Homans' sign noted on exam, no appreciated bluish discoloration, pain, swelling, tenderness, erythema. Vital Signs: 17:54 BP 152 / 75; Pulse 59; Resp 18; Temp 98.4; Pulse Ox 95% on R/A; tm3 19:30 BP 154 / 45; Pulse 57; Resp 16; Pulse Ox 96% on 2 lpm NC; jb4 20:13 BP 157 / 48; Pulse 61; Resp 18; Pulse Ox 92% on R/A; jb4 20:59 BP 137 / 46; Pulse 62; Resp 16; Pulse Ox 90% on R/A; jb4 20:59 Family reports this O2 level is normal for the pt. jb4 [place] Coma Score: 17:50 Eye Response: spontaneous(4). Motor Response: obeys commands(6). Verbal Response: db oriented(5). Total: 15. Trauma Score (Adult): 17:50 Eye Response: spontaneous(1); Verbal Response: oriented(1); Motor Response: obeys db commands(2); Systolic BP: > 89 mm Hg(4); Respiratory Rate: 10 to 29 per min(4); Amos Score: 15; Trauma Score: 12 MDM: 17:52 Patient medically screened. sb4 19:29 Transition of care: After a detail discussion of the patient's case, care is sb4 transferred to [facility]. 19:39 Differential Diagnosis fall, thrombus, fracture, effusion. Data reviewed: vital signs, snw nurses notes, lab test result(s), radiologic studies, ultrasound. I considered the following discharge prescriptions or medication management in the emergency department Medications were administered in the Emergency Department. See MAR. Special discussion: rec'd pt from [facility], awaiting US, US negative for DVT. Will discharge pt with family. 19:58 Counseling: I had a detailed discussion with the patient and/or guardian regarding: the snw historical points, exam findings, and any diagnostic results supporting the discharge/admit diagnosis, radiology results, the need for outpatient follow up, for definitive care. 05/12 17:55 Order name: Extremity Venous Uni Ltd US; Complete Time: 19:38 sb4 05/12 17:55 Order name: Ribs Left XRAY; Complete Time: 19:13 sb4 05/12 18:26 Order name: IV Start; Complete Time: 18:33 sb4 Administered Medications: 18:37 Drug: fentaNYL (PF) IVP 50 mcg Route: IVP; Site: right antecubital; db 20:22 Drug: Ondansetron IVP 4 mg Route: IVP; Site: right antecubital; jb4 Disposition Summary: 05/12/23 19:58 Discharge Ordered Location: Home snw Condition: Stable snw Diagnosis - Pain in left knee snw Followup: snw - With: Emergency Department - When: As needed - Reason: Worsening of condition Followup: snw - With: Private Physician - When: 1 week - Reason: Recheck today's complaints, Continuance of care, Re-evaluation by your physician Discharge Instructions: - Discharge Summary Sheet snw - Joint Pain snw - Hematoma snw Forms: - Medication Reconciliation Form snw - Thank You Letter snw - Antibiotic Education snw - Prescription Opioid Use snw - Patient Portal Instructions snw Prescriptions: - Diclofenac Sodium 75 mg Oral Tablet Sustained Release - take 1 tablet by ORAL route 2 times per day; 30 tablet; Refills: 0, Product snw Selection Permitted Signatures: Dispatcher [employer] Gita Hartmann FNP-C [facility] OUT-Csnw Miguel Angel Garner, RN RN jb4 Megan Vieira, RN RN Sweta Mckenzie PA-C PAiVckie sb4
--- NOTE | 2023-05-12 19:59 | ER ---
Nurse's Notes [facility] Name: Corina Hernandez Age: 87 yrs Sex: Female : 1935 Arrival Date: 05/12/2023 Time: 17:45 Bed 17 Private MD: Diagnosis: Pain in left knee Presentation: 05/12 17:50 Chief complaint: EMS states: PATIENT STATES FELL ON LEFT KNEE ON 04/30 AND FELL AGAIN ON db 05/09. XRAYS WERE NEGATIVE. TODAY PATIENT HAS KNEE PAIN AND DIFFICULTY WALKING. NOTED SWELLING TO LEFT KNEE AND BRUISING WITH REDNESS DOWN LEG. Care prior to arrival: None. Mechanism of Injury: Fall from standing position. Trauma event details: Injury occurred in the [facility]. 17:50 Acuity: MARLINE 3 db 17:50 Method Of Arrival: EMS: [facility] db Trauma Activation: Not Applicable Physician: ED Physician; Name: ; Notified At: ; Arrived At: Physician: General Surgeon; Name: ; Notified At: ; Arrived At: Physician: Radiology; Name: ; Notified At: ; Arrived At: Physician: Respiratory; Name: ; Notified At: ; Arrived At: Physician: Lab; Name: ; Notified At: ; Arrived At: - Immunization history: Last tetanus immunization: unknown. Screenin:50 Abuse screen: Denies threats or abuse. Denies injuries from another. Tuberculosis db screening: No symptoms or risk factors identified. 20:59 [facility] ED Fall Risk Assessment (Adult) History of falling in the last 3 months, jb4 including since admission Yes- single mechanical fall (1 pt) Confusion or Disorientation No (0 pts) Score/Fall Risk Level 0 - 2 = Low Risk Oriented to surroundings, Maintained a safe environment. Nutritional screening: No deficits noted. Primary Survey: 17:50 NO uncontrolled hemorrhage observed. Breathing/Chest: Spontaneous respiratory effort, db equal unlabored respirations, breath sounds clear bilaterally, regular pattern, symmetrical chest rise and fall. Respiratory effort: spontaneous, Breath sounds: clear, Respiratory pattern: regular, Chest inspection: symmetrical rise and fall of the chest. Circulation: No external hemorrhage present. Regular and strong central pulse, skin warm/dry/normal color. Disability Client is alert. Exposure/Environment: A warming method has been applied: A warm blanket has been provided to the patient. Reassessment Breathing: Spontaneous respiratory effort, equal unlabored respirations, breath sounds clear bilaterally, regular pattern with symmetrical chest rise and fall. Circulation: No external hemorrhage noted. Regular and strong central pulse, skin warm/dry/normal color. Disability: Alert. Assessment: 17:50 Reassessment: Patient and/or family updated on plan of care and expected duration. Pain db level reassessed. Patient is alert, oriented x 3, equal unlabored respirations, skin warm/dry/pink. General: Appears in no apparent distress. comfortable, Behavior is calm, cooperative. Pain: Complains of pain in left leg, LEFT KNEE. Neuro: Level of Consciousness is awake, alert, obeys commands, Oriented to person, place, time, situation. Respiratory: Airway is patent. 18:16 Reassessment: PT IN CT. FAMILY AT BEDSIDE. db 19:00 Reassessment: Patient appears in no apparent distress at this time. Patient and/or jb4 family updated on plan of care and expected duration. Pain level reassessed. Patient is alert, oriented x 3, equal unlabored respirations, skin warm/dry/pink. Ultrasound at the bedside. 19:56 Reassessment: Patient appears in no apparent distress at this time. Patient and/or jb4 family updated on plan of care and expected duration. Pain level reassessed. Patient is alert, oriented x 3, equal unlabored respirations, skin warm/dry/pink. Purewick in place. 20:59 Reassessment: Patient appears in no apparent distress at this time. Patient and/or jb4 family updated on plan of care and expected duration. Pain level reassessed. Patient is alert, oriented x 3, equal unlabored respirations, skin warm/dry/pink. Vital Signs: 17:54 BP 152 / 75; Pulse 59; Resp 18; Temp 98.4; Pulse Ox 95% on R/A; tm3 19:30 BP 154 / 45; Pulse 57; Resp 16; Pulse Ox 96% on 2 lpm NC; jb4 20:13 BP 157 / 48; Pulse 61; Resp 18; Pulse Ox 92% on R/A; jb4 20:59 BP 137 / 46; Pulse 62; Resp 16; Pulse Ox 90% on R/A; jb4 20:59 Family reports this O2 level is normal for the pt. jb4 Amos Coma Score: 17:50 Eye Response: spontaneous(4). Motor Response: obeys commands(6). Verbal Response: db oriented(5). Total: 15. Trauma Score (Adult): 17:50 Eye Response: spontaneous(1); Verbal Response: oriented(1); Motor Response: obeys db commands(2); Systolic BP: > 89 mm Hg(4); Respiratory Rate: 10 to 29 per min(4); Amos Score: 15; Trauma Score: 12 ED Course: 17:50 Patient has correct armband on for positive identification. Bed in low position. Call db light in reach. Side rails up X2. 17:50 Patient maintains SpO2 saturation greater than 95% on room air. db 17:51 Patient arrived in ED. sb4 17:52 Sweta Meyer PA-C is PHCP. sb4 17:52 Mayito Bartlett MD is Attending Physician. sb4 18:12 Megan Vieira, RN is Primary Nurse. db 18:14 Radiology exam delayed due to patient is not appropriately dressed for the exam at this jk time. 18:15 Triage completed. db 18:16 Arm band placed on left wrist. Patient placed in an exam room. db 18:33 Inserted saline lock: 20 gauge in right antecubital area, using aseptic technique. db 18:40 Ribs Left XRAY In Process Unspecified. EDMS 19:28 Extremity Venous Uni Ltd US In Process Unspecified. EDMS 19:55 Miguel Angel Garner, RN is Primary Nurse. jb4 20:59 No provider procedures requiring assistance completed. IV discontinued, intact, jb4 bleeding controlled, No redness/swelling at site. Pressure dressing applied. Administered Medications: 18:37 Drug: fentaNYL (PF) IVP 50 mcg Route: IVP; Site: right antecubital; db 20:22 Drug: Ondansetron IVP 4 mg Route: IVP; Site: right antecubital; jb4 Outcome: 19:58 Discharge ordered by . snw 20:59 Discharged to home via ambulance. jb4 20:59 Condition: stable 20:59 Discharge instructions given to patient, Instructed on discharge instructions, follow up and referral plans. medication usage, Demonstrated understanding of instructions, follow-up care, medications, Prescriptions given X 1. 21:01 Patient left the ED. jb4 Signatures: Dispatcher [employer] EDMS Chad Johnson tm3 Munson, Gita, DRAW FIRE OPERATOR-C DRAW FIRE OPERATOR-Csnw Miguel Angel Garner, RN RN jb4 Ed Gustafson Danielle, RN RN db Sweta Meyer, JASBIR MARTELL sb4
[2023-05-12] MEDS ORDERED: ONDANSETRON 4 MG/2 ML VIAL ONE (20:20)
[2023-05-12 21:13] VITALS: TEMP 98.4
[2023-05-12 21:20] VITALS: BP 137/46; O2SAT 90
== END 2023-05-12 21:01 | disposition home or self-care (01) ==
LOC: ER 17:45
DX: M25.562 Pain in left knee (principal)
CPT/HCPCS: 71100; 93971; J3010; J2405

== ENCOUNTER 2023-05-21 14:52 | Inpatient (IN) | payer OTHER ==
--- OUTSIDE RECORDS SUMMARY | 2023-05-21 15:26 | XMS REPORT | Continuity of Care Document ---
:1935 Author Organization [facility] t Address [address] [facility]. 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 [...] Date Source Maternal grandfather No Known Problems [facility] Maternal grandmother No Known Problems [facility] Natural mother No Known Problems [facility] Paternal grandfather No Known Problems [facility] Paternal grandmother No Known Problems [facility] Natural brother Diabetes [facility] Natural father Heart attack [facility] Natural sister Diabetes [facility] Natural son Heart failure [facility] son Hyperlipidemia [facility] son Hypertension [facility] Natural son Sleep apnea [facility] Social History Social Habit Start Date Stop Date Quantity Comments Source Gender identity [facility] Sexual orientation [facility] Alcohol intake 2023-03-27 2023-03-27 Lifetime [facility] 00:00:00 00:00:00 non-drinker Hospital (finding) History of Social 2023-03-27 2023-03-[address] function 00:00:00 00:00:00 Hospital Tobacco use and 2022-08-12 2022-08-12 Smokeless [facility] exposure 00:00:00 00:00:00 tobacco non-user Hospital Sex Assigned At [birth year] [facility] 00:00:00 00:00:00 Hospital Smoking Status Start Date Stop Date Source Never smoked tobacco [facility] Medications Ordered Filled Start Stop Current Ordering Indication Dosage Frequency Signature Comments Components Source Medication Medication Date Date Medication? Clinician (SIG) Name Name rosuvastati Yes [id number] 5mg Q.5W Take 1 [facility] (CRESTOR) 7-13 tablet (5 st 5 mg tablet 00:00: mg total) H ospita 00 by mouth 2 l (two) times a week. rosuvastati 2022-0 Yes [id number] 5mg Q.5W Take 1 [facility] (CRESTOR) 7-13 tablet (5 st 5 mg tablet 00:00: mg total) H ospita 00 by mouth 2 l (two) times a week. rosuvastati 2022-0 Yes [id number] 5mg Q.5W Take 1 [facility] (CRESTOR) 7-13 tablet (5 st 5 mg tablet 00:00: mg total) H ospita 00 by mouth 2 l (two) times a week. dapaglifloz 2022-0 202- No QD Take by Me thodi in 04-[address] ([facility]) 11:46: 00:00 daily. Hospi ta 10 mg 36 :00 l tablet dapaglifloz 2022-0 2022- No QD Take by Me thodi in 04-[address] ([facility]) 11:46: 00:00 daily. Hospi ta 10 mg 36 :00 l tablet dapaglifloz 2022-0 2022- No QD Take by Me thodi in 04-[address] ([facility]) 11:46: 00:00 daily. Hospi ta 10 mg 36 :00 l tablet doxazosin 2022-0 Yes [id number] 2mg QD Take 1 Me thodi (CARDURA) 2 -12 tablet (2 st MG tablet 00:00: mg total) Hos lizzy 00 by mouth l nightly. aspirin 2022-0 Yes [id number] 81mg QD Take 1 Met hodi (ECOTRIN) 7-12 tablet (81 st 81 MG 00:00: mg total) Hospita enteric 00 by mouth l coated daily. tablet clonIDINE 2022-0 Yes [id number] .1mg Q4H Take 1 Me [facility] (CATAPRES) -[address] 0.1 MG 00:00: (0.1 mg Hospita tablet 00 total) by l mouth every 4 (four) hours as needed (htn). For SBP>180 hydrALAZINE 2023-0 Yes [id number] 25mg Q.5D Take 1 Methodi (APRESOLINE 7-12 [...] 10 mg daily. tablet doxazosin 3-0 Yes [id number] 2mg QD Take 1 Me thodi (CARDURA) 2 7-12 tablet (2 st MG tablet 00:00: mg total) Hos lizzy 00 by mouth l nightly. aspirin 2023-0 Yes [id number] 81mg QD Take 1 Met hodi (ECOTRIN) 7-12 tablet (81 st 81 MG 00:00: mg total) Hospita enteric 00 by mouth l coated daily. tablet clonIDINE 2023-0 Yes [id number] .1mg Q4H Take 1 Me [facility] (CATAPRES) 7-[address] 0.1 MG 00:00: (0.1 mg Hospita tablet 00 total) by l mouth every 4 (four) hours as needed (htn). For SBP>180 hydrALAZINE 2023-0 Yes [id number] 25mg Q.5D Take 1 Methodi (APRESOLINE 7-12 [...] 10 mg daily. tablet doxazosin 3-0 Yes [id number] 2mg QD Take 1 Me thodi (CARDURA) 2 7-12 tablet (2 st MG tablet 00:00: mg total) Hos lizzy 00 by mouth l nightly. aspirin 3-0 Yes [id number] 81mg QD Take 1 Met hodi (ECOTRIN) 7-12 tablet (81 st 81 MG 00:00: mg total) Hospita enteric 00 by mouth l coated daily. tablet clonIDINE 2023-0 Yes [id number] .1mg Q4H Take 1 Me [facility] (CATAPRES) 7-[address] 0.1 MG 00:00: (0.1 mg Hospita tablet 00 total) by l mouth every 4 (four) hours as needed (htn). For SBP>180 hydrALAZINE 2023-0 Yes [id number] 25mg Q.5D Take 1 Methodi (APRESOLINE 7-12 [...] 20mg Q.5D Take 1 Method i (DEMADEX) -12 tablet (20 st 20 MG 00:00: mg total) Hospita tablet 00 by mouth 2 l (two) times a day. amIODarone 2023-0 Yes 200mg QD Take 1 Meth lore (PACERONE) 04-[address] 200 MG 00:00: (200 mg Hospita tablet 00 total) by l mouth daily. dapaglifloz 2023-0 Yes 10mg QD Take 1 Meth lore in 04-22 tablet (10 st propanediol 00:00: mg total) H ospita (FARXIGA) 00 by mouth l 10 mg daily. tablet doxazosin 2023-0 2023- No [id number] 2mg QD Take 1 M ethodi (CARDURA) 2 04-20 tablet (2 st MG tablet 00:00: 00:00 mg total) Ho spita 00 :00 by mouth l nightly. doxazosin 2023-0 2023- No [id number] 2mg QD Take 1 M ethodi (CARDURA) 2 04-20- tablet (2 st MG tablet 00:00: 00:00 mg total) Ho spita 00 :00 by mouth l nightly. doxazosin 2023-0 2023- No [id number] 2mg QD Take 1 M ethodi (CARDURA) 2 04-20- tablet (2 st MG tablet 00:00: 00:00 [...] :00 total) by l mouth daily. nitroglycer 3-0 3- No .4mg Place 1 Me thodi in 02-[address] (NITROSTAT) 00:00: 00:00 (0.4 mg Ho spita 0.4 MG SL 00 :00 total) l tablet under the tongue every 5 (five) minutes as needed for chest pain. Not to exceed 3 doses in 15min. amIODarone 3-0 3- No 200mg QD Take 1 Met [...] Yes QD Take by Met hodi in - mouth st (FARXIGA) 14:15: daily. Hospit a 10 mg 36 l tablet iron 2022-0 Yes Take by Methodi fum/vit 02-[address] C/ascorbate 14:15: Hospit a sod (IRON 36 l PLUS VITAMIN C ORAL) meclizine 2022-0 Yes 1{tbl} Take 1 Meth lore (ANTIVERT) [...] by l tablet mouth every morning. iron 2022-0 Yes Take by Methodi fum/vit 5-[address] C/ascorbate 14:15: Hospit a sod (IRON 36 l PLUS VITAMIN C ORAL) meclizine 0 Yes 1{tbl} Take 1 Meth lore (ANTIVERT) 5-02 tablet (25 st 25 mg 14:15: mg total) Hospita tablet 36 by mouth l once as needed. vit 2022-0 Yes 1{tbl} Q.5D Take 1 Methodi C/E/Zn/danuta 5-[address] r/lutein/ze 14:15: mouth 2 Hos lizzy axan 36 (two) l (PRESERVISI times a ON AREDS-2 day. ORAL) melatonin 3 0 Yes 3mg QD Take 1 Meth lore mg tablet 5-02 tablet (3 st 14:15: mg total) Hospita 36 by mouth l nightly as needed for sleep. levothyroxi 2022-0 Yes 150ug QD Take 1 Met hodi ne 5-[address] (SYNTHROID) 14:15: (150 mcg Ho spita 150 mcg 36 total) by l tablet mouth every morning. iron 2022-0 Yes Take by Methodi fum/vit 5-[address] C/ascorbate 14:15: Hospit a sod (IRON 36 l PLUS VITAMIN C ORAL) meclizine 2022-0 Yes 1{tbl} Take 1 Meth lore (ANTIVERT) 5-02 tablet (25 st 25 mg 14:15: mg total) Hospita tablet 36 by mouth l once as needed. vit Yes 1{tbl} Q.5D Take 1 Methodi C/E/Zn/danuta 5-[address] r/lutein/ze 14:15: mouth 2 Hos lizzy axan 36 (two) l (PRESERVISI times a ON AREDS-2 day. ORAL) melatonin 3 0 Yes 3mg QD Take 1 Meth [facility] mg tablet 5-02 tablet (3 st 14:15: [...] by l tablet mouth every morning. torsemide 0 2022- No 20mg Q.5D Take 1 Metho [...] 2 l (two) times a day. torsemide 2023-0 2023- No 20mg Q.5D Take 1 Metho di (DEMADEX) 3-13 03-13 tablet (20 st 20 MG 10:29: 00:00 mg total) Hospit a tablet 54 :00 by mouth 2 l (two) times a day. torsemide 2023-0 2023- No 20mg Q.5D Take 1 Metho di (DEMADEX) 3-13 03-13 tablet (20 st 20 MG 10:29: 00:00 mg total) Hospit a tablet 54 :00 by mouth 2 l (two) times a day. torsemide 2023-0 Yes 20mg Q.5D Take 1 Method i (DEMADEX) 3-13 tablet (20 st 20 MG 00:00: mg total) Hospita tablet 00 by mouth 2 l (two) times a day. torsemide 2023-0 2023- No 20mg Q.5D Take 1 Metho di (DEMADEX) 3-13 -12 tablet (20 st 20 MG 00:00: 00:00 mg total) Hospit a tablet 00 :00 by mouth 2 l (two) times a day. torsemide 2023-0 2023- No 20mg Q.5D Take 1 Metho di (DEMADEX) 3-13 -12 tablet (20 st 20 MG 00:00: 00:00 mg total) Hospit a tablet 00 :00 by mouth 2 l (two) times a day. torsemide 2023-0 2023- No 20mg Q.5D Take 1 Metho di (DEMADEX) 3-13 -12 tablet (20 st 20 MG 00:00: 00:00 mg total) Hospit a tablet 00 :00 by mouth 2 l (two) times a day. doxazosin 2023-0 Yes [id number] TAKE 1 Me thodi (CARDURA) 2 2-20 TABLET(2 st MG tablet 00:00: MG) BY Hospit a 00 MOUTH l EVERY NIGHT doxazosin 2023-0 2023- No [id number] TAKE 1 M ethodi (CARDURA) 2 2-20 07-10 TABLET(2 st MG tablet 00:00: 00:00 MG) BY Hospi ta 00 :00 MOUTH l EVERY NIGHT doxazosin 2023-0 2023- No [id number] TAKE 1 M ethodi (CARDURA) 2 2-20 07-10 TABLET(2 st MG tablet 00:00: 00:00 MG) BY Hospi ta 00 :00 MOUTH l EVERY NIGHT doxazosin 2022-2022- No [id number] TAKE 1 M ethodi (CARDURA) 2 20 07-10 TABLET(2 st MG tablet 00:00: 00:00 MG) BY Hospi ta 00 :00 MOUTH l EVERY NIGHT olmesartan 2022-0 Yes 40mg QD Take 1 Metho di (BENICAR) 11-03 tablet (40 st 40 MG 00:00: mg total) Hospita tablet 00 by mouth l daily. olmesartan 2022-0 3- No 40mg QD Take 1 Meth lore (BENICAR) 11-03-12 tablet (40 st 40 MG 00:00: 00:00 mg total) Hospit a tablet 00 :00 by mouth l daily. olmesartan 2022-0 3- No 40mg QD Take 1 Meth lore (BENICAR) 11-03- tablet (40 st 40 MG 00:00: 00:00 mg total) Hospit a tablet 00 :00 by mouth l daily. olmesartan 2022-0 3- No 40mg QD Take 1 Meth lore (BENICAR) 11-03-12 tablet (40 st 40 MG 00:00: 00:00 mg total) Hospit a tablet 00 :00 by mouth l daily. amIODarone 2022-0 2022- No 200mg QD Take 1 Met hodi (PACERONE) 10-24-[address] 200 MG 00:00: 00:00 (200 mg Hospita tablet 00 :00 total) by l mouth daily. amIODarone 2022-0 3- No 200mg QD Take 1 Met hodi (PACERONE) 10-24-[address] 200 MG 00:00: 00:00 (200 mg Hospita tablet 00 :00 total) by l mouth daily. amIODarone 2022-0 3- No 200mg QD Take 1 Met hodi (PACERONE) 10-24-[address] 200 MG 00:00: 00:00 (200 mg Hospita tablet 00 :00 total) by l mouth daily. amIODarone 2022-0 3- No 200mg QD Take 1 Met hodi (PACERONE) 1-13 05-[address] 200 MG 00:00: 00:00 (200 mg Hospita tablet 00 :00 total) by l mouth daily. doxazosin 2021-10 Yes [id number] 2mg QD Take 1 Me thodi (CARDURA) 2 - tablet (2 st MG tablet 00:00: mg total) Hos lizzy 00 by mouth l nightly. doxazosin 2021-10- No [id number] 2mg QD Take 1 M ethodi (CARDURA) 2 10-18 tablet (2 st MG tablet 00:00: 00:00 mg total) Ho spita 00 :00 by mouth l nightly. doxazosin 2021-10 No [id number] 2mg QD Take 1 M ethodi (CARDURA) 2 10-18 tablet (2 st MG tablet 00:00: 00:00 mg total) Ho spita 00 :00 by mouth l nightly. doxazosin 2021-10 No [id number] 2mg QD Take 1 M ethodi (CARDURA) 2 10-18 tablet (2 st MG tablet 00:00: 00:00 mg total) Ho spita 00 :00 by mouth l nightly. doxazosin 2021-10 No [id number] 2mg QD Take 1 M ethodi (CARDURA) 2 10-18 tablet (2 st MG tablet 00:00: 00:00 [...] dapaglifloz 2021-10 Yes QD Take by Met hodi in 10-[address] (Farxiga) 13:57: daily. Hospit a 10 mg 43 l tablet iron 2021-10 Yes Take by Methodi fum/vit 10-[address] C/ascorbate 13:57: Hospit a sod (IRON 43 l PLUS VITAMIN C ORAL) torsemide 2021-10 Yes [id number] 40mg QD Take 40 mg Methodi 40 mg 10-[address] tablet 00:00: daily. Hospita 00 Takes l 1/2(10) tablet torsemide 2021-10- No [id number] 40mg QD Take 40 mg Methodi 40 mg 10-[address] tablet 00:00: 00:00 daily. Hospita 00 :00 Takes l 1/2(10) tablet torsemide 2021-10- No [id number] 40mg QD Take 40 mg Methodi 40 mg 10-[address] tablet 00:00: 00:00 daily. Hospita 00 :00 Takes l 1/2(10) tablet torsemide 2021-10- No [id number] 40mg QD Take 40 mg Methodi 40 mg 10-[address] tablet 00:00: 00:00 daily. Hospita 00 :00 Takes l 1/2(10) tablet torsemide 2021-10- No [id number] 40mg QD Take 40 mg Methodi 40 mg 10-[address] tablet 00:00: 00:00 daily. Hospita 00 :00 Takes l 1/2(10) tablet torsemide 2021-10- No [id number] 20mg Q.5D Take 1 M ethodi (DEMADEX) 10-12 tablet (20 st 20 MG 00:00: 00:00 mg total) Hospit a tablet 00 :00 by mouth 2 l (two) times a day. Takes 1/2(10) tablet torsemide 2021-10- No [id number] 20mg Q.5D Take 1 M ethodi (DEMADEX) 10-12 tablet (20 st 20 MG 00:00: 00:00 mg total) Hospit a tablet 00 :00 by mouth 2 l (two) times a day. Takes 1/2(10) tablet torsemide 2021-10- No [id number] 20mg Q.5D Take 1 M ethodi (DEMADEX) 10-12 tablet (20 st 20 MG 00:00: 00:00 mg total) Hospit a tablet 00 :00 by mouth 2 l (two) times a day. Takes 1/2(10) tablet torsemide 2021-10- No [id number] 20mg Q.5D Take 1 M ethodi (DEMADEX) 10-12 tablet (20 st 20 MG 00:00: 00:00 mg total) Hospit a tablet 00 :00 by mouth 2 l (two) times a day. Takes 1/2(10) tablet torsemide 2021-10- No [id number] 20mg Q.5D Take 1 M ethodi (DEMADEX) [...] 00 :00 DAILY l doxazosin 2021- No [id number] TAKE 1 M ethodi (CARDURA) 2 5-20 08-[address] MG tablet 00:00: 00:00 MOUTH ONCE H ospita 00 :00 NIGHTLY l BEFORE BED doxazosin 2022-0 2022- No [id number] TAKE 1 M ethodi (CARDURA) 2 02-[address] MG tablet 00:00: 00:00 MOUTH ONCE H ospita 00 :00 NIGHTLY l BEFORE BED doxazosin 2-0 2022- No [id number] TAKE 1 M ethodi (CARDURA) 2 02-[address] MG tablet 00:00: 00:00 MOUTH ONCE H ospita 00 :00 NIGHTLY l BEFORE BED doxazosin 2-0 2022- No [id number] TAKE 1 M ethodi (CARDURA) 2 02-[address] MG tablet 00:00: 00:00 MOUTH ONCE H ospita 00 :00 NIGHTLY l BEFORE BED doxazosin 2022-0 2022- No [id number] TAKE 1 M ethodi (CARDURA) 2 02-[address] MG tablet 00:00: 00:00 MOUTH ONCE H ospita 00 :00 NIGHTLY l BEFORE BED hydrALAZINE 2022-0 Yes [id number] TAKE 1 Methodi (APRESOLINE 4-[address] ) 50 MG 00:00: MOUTH 3 Hospita tablet 00 TIMES l DAILY hydrALAZINE 2-0 Yes [id number] TAKE 1 Methodi (APRESOLINE 4-[address] ) 50 MG 00:00: MOUTH 3 Hospita tablet 00 TIMES l DAILY hydrALAZINE 2022-0 2023- No [id number] TAKE 1 [facility]i (APRESOLINE 4-11 07-[address] ) 50 MG 00:00: 00:00 MOUTH 3 Hospit a tablet 00 :00 TIMES l DAILY hydrALAZINE 2022-0 2023- No [id number] TAKE 1 Methodi (APRESOLINE 4-11 07-[address] ) 50 MG 00:00: 00:00 MOUTH 3 Hospit a tablet 00 :00 TIMES l DAILY hydrALAZINE 2022-0 2023- No [id number] TAKE 1 [facility]i (APRESOLINE 4-11 07-[address] ) 50 MG 00:00: 00:00 MOUTH 3 Hospit a tablet 00 :00 TIMES l DAILY rosuvastati 2022-0 Yes [id number] 5mg Q.5W Take 1 [facility] n (CRESTOR) 3-31 tablet (5 st 5 mg tablet 00:00: mg total) H ospita 00 by mouth 2 l (two) times a week. rosuvastati Yes [id number] 5mg Q.5W Take 1 [facility] n (CRESTOR) 3-31 tablet (5 st 5 mg tablet 00:00: mg total) H ospita 00 by mouth 2 l (two) times a week. rosuvastati 2022- No [id number] 5mg Q.5W Take 1 [facility] n (CRESTOR) -11 05-12 tablet (5 st 5 mg tablet 00:00: 00:00 mg total) Hospita 00 :00 by mouth 2 l (two) times a week. rosuvastati 2022- No [id number] 5mg Q.5W Take 1 [facility] n (CRESTOR) 01-09-12 tablet (5 st 5 mg tablet 00:00: 00:00 mg total) Hospita 00 :00 by mouth 2 l (two) times a week. rosuvastati 2022- No [id number] 5mg Q.5W Take 1 [facility] n (CRESTOR) -11 05-12 tablet (5 st 5 mg tablet 00:00: 00:00 mg total) Hospita 00 :00 by mouth 2 l (two) times a week. aspirin 2021- No 81mg QD Take 81 mg Met [...] .1mg Q4H Take 0.1 Met hodi (CATAPRES) 01-07- mg by st 0.1 MG 12:14: 00:00 [...] a l week. hydrALAZINE 2021- No 50mg Q.[id number] Take 50 mg Methodi (APRESOLINE 01-07 [id number] by mouth 3 st ) 50 MG [...] l (six) hours as needed. aspirin Yes [id number] 81mg QD Take 1 Met hodi (ECOTRIN) 01-07 tablet (81 st 81 MG 00:00: mg total) Hospita enteric 00 by mouth l coated daily. tablet clonIDINE 0 Yes [id number] .1mg Q4H Take 1 Me thodi (CATAPRES) 01-[address] 0.1 MG 00:00: (0.1 mg Hospita tablet 00 total) by l mouth every 4 (four) hours as needed (htn). For SBP>180 aspirin 2021-0 Yes [id number] 81mg QD Take 1 Met hodi (ECOTRIN) 01-07 tablet (81 st 81 MG 00:00: mg total) Hospita enteric 00 by mouth l coated daily. tablet clonIDINE Yes [id number] .1mg Q4H Take 1 Me thodi (CATAPRES) 01-[address] 0.1 MG 00:00: (0.1 mg Hospita tablet 00 total) by l mouth every 4 (four) hours as needed (htn). For SBP>180 aspirin 2022- No [id number] 81mg QD Take 1 Me thodi (ECOTRIN) 01-07 tablet (81 st 81 MG 00:00: 00:00 mg total) Hospit a enteric 00 :00 by mouth l coated daily. tablet clonIDINE 2022- No [id number] .1mg Q4H Take 1 M ethodi (CATAPRES) 01-[address] 0.1 MG 00:00: 00:00 (0.1 mg Hospita tablet 00 :00 total) by l mouth every 4 (four) hours as needed (htn). For SBP>180 aspirin 2022- No [id number] 81mg QD Take 1 Me thodi (ECOTRIN) 01-07 tablet (81 st 81 MG 00:00: 00:00 mg total) Hospit a enteric 00 :00 by mouth l coated daily. tablet clonIDINE 0 2022- No [id number] .1mg Q4H Take 1 M ethodi (CATAPRES) 01-[address] 0.1 MG 00:00: 00:00 (0.1 mg Hospita tablet 00 :00 total) by l mouth every 4 (four) hours as needed (htn). For SBP>180 aspirin 2022- No [id number] 81mg QD Take 1 Me thodi (ECOTRIN) 01-07 tablet (81 st 81 MG 00:00: 00:00 mg total) Hospit a enteric 00 :00 by mouth l coated daily. tablet clonIDINE No [id number] .1mg Q4H Take 1 M ethodi (CATAPRES) 01-[address] 0.1 MG 00:00: 00:00 (0.1 mg Hospita tablet 00 :00 total) by l mouth every 4 (four) hours as needed (htn). For SBP>180 torsemide No [id number] 10mg Take 0.5 [facility] (DEMADEX) 01-[address] 20 MG 00:00: 00:00 (10 mg Hospita tablet 00 :00 total) by l mouth take as directed (s). Takes 1/2(10) tablet torsemide No [id number] 10mg Take 0.5 [facility] (DEMADEX) 01-[address] 20 MG 00:00: 00:00 (10 mg Hospita tablet 00 :00 total) by l mouth take as directed (s). Takes 1/2(10) tablet torsemide No [id number] 10mg Take 0.5 [facility] (DEMADEX) 01-[address] 20 MG 00:00: 00:00 (10 mg Hospita tablet 00 :00 total) by l mouth take as directed (s). Takes 1/2(10) tablet torsemide No [id number] 10mg Take 0.5 [facility] (DEMADEX) 01-[address] 20 MG 00:00: 00:00 (10 mg Hospita tablet 00 :00 total) by l mouth take as directed (s). Takes 1/2(10) tablet torsemide 2021- No [id number] 10mg Take 0.5 [facility] (DEMADEX) 01-[address] 20 MG 00:00: 00:00 (10 mg Hospita tablet 00 :00 total) by l mouth take as directed (s). Takes 1/2(10) tablet doxazosin 2021- No [id number] 2mg QD Take 1 M ethodi (CARDURA) 2 01-07 05-20 tablet (2 st MG tablet 00:00: 00:00 mg total) Ho spita 00 :00 by mouth l nightly. hydrALAZINE [id number] 50mg Q.[id number] Take 1 [facility] (APRESOLINE 01-07 04-11 [id number] tablet (50 st ) 50 MG 00:00: 00:00 3D mg total) [facility] tablet 00 :00 by mouth 3 l (three) times a day. Vital Signs Vital Name Observation Time Observation Value Comments Source Systolic blood 2023-03-27 18:10:00 165 mm[Hg] [facility] pressure Diastolic blood 2023-03-27 18:10:00 55 [facility]Hg[facility] pressure Heart rate 2023-03-27 18:10:00 47 /min [facility] Respiratory rate 2023-03-27 18:10:00 19 /min [facility] Body height 2023-03-27 18:10:00 157.5 cm [facility] Body weight 2023-03-27 18:10:00 67.586 kg [facility] BMI 2023-03-27 18:10:00 27.25 kg/m2 [facility] Oxygen saturation in 2023-03-27 18:10:00 96 /min [facility] Arterial blood by Pulse oximetry Systolic blood 2023-02-10 19:10:00 152 mm[Hg] [facility] Hospital pressure Diastolic blood 2023-02-10 19:10:00 61 mm[Hg] [facility] pressure Heart rate 2023-02-10 19:10:00 52 /min [facility] Respiratory rate 2023-02-10 19:10:00 12 /min [facility] Body height 2023-02-10 19:10:00 165.1 cm [facility] Body weight 2023-02-10 19:10:00 71.668 kg [facility] BMI 2023-02-10 19:10:00 26.29 kg/m2 [facility] Oxygen saturation in 2022-09-22 20:59:00 97 /min [facility] Arterial blood by Pulse oximetry Body weight 2022-08-12 18:50:00 71.668 kg [facility] BMI 2022-08-12 18:50:00 26.29 kg/m2 [facility] Oxygen saturation in 2022-08-12 18:50:00 98 /min [facility] Arterial blood by Pulse oximetry Systolic blood 2022-08-12 18:50:00 175 mm[Hg] [facility] pressure Diastolic blood 2022-08-12 18:50:00 66 mm[Hg] [facility] pressure Heart rate 2022-08-12 18:50:00 98 /min [facility] Body height 2022-08-12 18:50:00 165.1 cm [facility] Respiratory rate 2022-01-07 16:51:00 12 /min [facility] Procedures Procedure Date / Time Performed Performing Clinician [facility] e BASIC METABOLIC PANEL 2023-04-02 14:50[facility] 2023-03-27 [facility]17[facility] 2023-03-27 [facility]:17[facility] 2023-03-16 17:32[facility] 12-LEAD 2023-02-10 18:52:00 [facility] CV HOLTER MONITOR 48 2022-10-24 21:52:40 [facility] 12-LEAD 2022-09-22 21:08:05 [facility] 12-[facility]AD 2022-09-22 21:07:00 [facility] 12[facility]AD 2022-01-07 16:55:00 [facility] Plan of Care Planned Activity Planned Date Details Comments Source Future Scheduled 2023-05-13 COVID-19 VACCINE (#1) [facility] Test 19:16:56 [code = COVID-19 VACCINE (#1)] Future Scheduled 2023-05-13 65+ PNEUMOCOCCAL [facility] Test 19:16:56 VACCINE (1 - PCV) [code = 65+ PNEUMOCOCCAL VACCINE (1 - PCV)] Future Scheduled 2023-05-13 SHINGLES VACCINES (1 [facility] 19:16:56 of 2) [code = SHINGLES VACCINES (1 of 2)] Future Scheduled 2023-05-13 INFLUENZA VACCINE [facility] Test 19:16:56 [code = INFLUENZA VACCINE] Future Scheduled 2023-05-07 COVID-19 VACCINE (#1) [facility] Test 16:03:36 [code = COVID-19 VACCINE (#1)] Future Scheduled 2023-05-07 65+ PNEUMOCOCCAL [facility] Test 16:03:36 VACCINE (1 - PCV) [code = 65+ PNEUMOCOCCAL VACCINE (1 - PCV)] Future Scheduled 2023-05-07 SHINGLES VACCINES (1 Met [facility] Test 16:03:36 of 2) [code = SHINGLES VACCINES (1 of 2)] Future Scheduled 2023-05-07 INFLUENZA VACCINE [facility] Test 16:03:36 [code = INFLUENZA VACCINE] Future Scheduled 2023-05-07 COVID-19 VACCINE (#1) [facility] Hospital Test 16:03:36 [code = COVID-19 VACCINE (#1)] Future Scheduled 2023-05-07 65+ PNEUMOCOCCAL [facility] Test 16:03:36 VACCINE (1 - PCV) [code = 65+ PNEUMOCOCCAL VACCINE (1 - PCV)] Future Scheduled 2023-05-07 SHINGLES VACCINES (1 Met [facility] Test 16:03:36 of 2) [code = SHINGLES VACCINES (1 of 2)] Future Scheduled 2023-05-07 INFLUENZA VACCINE Method [facility] Test 16:03:36 [code = INFLUENZA VACCINE] Future Scheduled 2023-03-20 COVID-19 VACCINE (#1) [facility] Test 11:43:07 [code = COVID-19 VACCINE (#1)] Future Scheduled 2023-03-20 65+ [facility]CCAL [facility] Test 11:43:07 VACCINE (1 - PCV) [code = 65+ PNEUMOCOCCAL VACCINE (1 - PCV)] Future Scheduled 2023-03-20 SHINGLES VACCINES (1 Met [facility] Test 11:43:07 of 2) [code = SHINGLES VACCINES (1 of 2)] Future Scheduled 2023-03-20 INFLUENZA VACCINE Method [facility] Test 11:43:07 [code = INFLUENZA VACCINE] Future Scheduled 2022-08-18 HEPATITIS B VACCINES Met [facility] Test 15:02:15 (1 of 3 - 3-dose series) [code = HEPATITIS B VACCINES (1 of 3 - 3-dose series)] Future Scheduled 2022-08-18 COVID-19 VACCINE (#1) [facility] Test 15:02:15 [code = COVID-19 VACCINE (#1)] Future Scheduled 2022-08-18 65+ [facility]ACCINE (1 - PCV) [code = 65+ PNEUMOCOCCAL VACCINE (1 - PCV)] Future Scheduled 2022-08-18 SHINGLES VACCINES ([facility] [facility] Test 15:02:15 of 2) [code = SHINGLES VACCINES (1 of 2)] Future Scheduled 2022-08-18 INFLUENZA VACCINE Method [facility] Test 15:02:15 [code = INFLUENZA VACCINE] Encounters Start End Encounter Admission Attending Care Care Encounter Source Date/Time Date/Time Type Type Clinicians Facility Department ID 2023-04-27 2023-04-27 Telephone Miguel Angel 1.2.840.1 [id number] 21 [id number] Methodi 00:00:00 00:00:[address] 3.430.2.7 Hospit a .3.799388 l .8 2023-04-27 2023-04-27 Telephone Miguel Angel 1.2.840.1 [id number] 21 [id number] Methodi 00:00:00 00:00:[address] 3.430.2.7 Hospit a .3.231384 l .8 2023-04-22 2023-04-22 Reflenore Arzate 1.2.840.1 [id number] 2100 [id number] Methodi 00:00:00 00:00:00 Jackelyn D [address]74.1.[address] 3.430.2.7 Hospit a .3.667643 l .8 2023-04-22 2023-04-22 Refill Huey, 1.2.840.1 [id number] 2100 [id number] Methodi 00:00:00 00:00:00 Jackelyn D [address]85.1.[address] 3.430.2.7 Hospit a .3.543156 l .8 2023-04-20 2023-04-20 Refill Miguel Angel, 1.2.840.1 [id number] 2099 [id number] Methodi 00:00:00 00:00:[address] 3.430.2.7 Hospit a .3.530818 l .8 2023-04-20 2023-04-20 Refill Miguel Angel, 1.2.840.1 [id number] Methodi 00:00:00 00:00:[address] 3.430.2.7 Hospit a .3.443415 l .8 2023-04-06 2023-04-06 Telephone Give, 1.2.840.1 [id number] 21 [id number] Methodi 00:00:00 00:00:[address] 3.430.2.7 Hospit a .3.995817 l .8 2023-04-06 2023-04-06 Telephone Give, 1.2.840.1 [id number] 21 [id number] Methodi 00:00:00 00:00:[address] 3.430.2.7 Hospit a .3.675528 l .8 2023-03-27 2023-03-27 [facility], 1.2.840.1 [id number] 73485 Methodi 12:52:05 23:59:00 Encounter John AngelicaJosé 92770.1.[address] 3.430.2.7 Hospit a .3.831890 l .8 2023-03-27 2023-03-27 [facility], 1.2.840.1 [id number] Methodi 12:52:05 23:59:00 Encounter John Prado 32685.1.[address] 3.430.2.7 Hospit a .3.255683 l .8 2023-03-27 2023-03-27 Telephone Give, 1.2.840.1 [id number] Methodi 00:00:00 00:00:[address] 3.430.2.7 Hospit a .3.913529 l .8 2023-03-27 2023-03-27 Telephone Giveon, 1.2.840.1 [id number] 21 [id number] Methodi 00:00:00 00:00:[address] 3.430.2.7 Hospit a .3.190275 l .8 2023-03-17 2023-03-17 Travel 1.2.840.1 1.2.736.625 8434 163467 Methodi 00:00:00 00:00:[address] 3.430.2.7 0.2.7.3.698 Ho spita .3.752165 084.8 l .8 2023-03-17 2023-03-17 Travel 1.2.840.1 1.2.361.570 3381 825626 Methodi 00:00:00 00:00:[address] 3.430.2.7 0.2.7.3.698 Ho spita .3.290776 084.8 l .8 2023-03-16 2023-03-16 Orders Younis, 1.2.840.1 [id number] 2100 340796 Methodi 00:00:00 00:00:00 Only John Dominguez. 01202.1.[address] 3.430.2.7 Hospit a .3.892541 l .8 2023-03-16 2023-03-16 Orders Younis, 1.2.840.1 [id number] 2100 159428 Methodi 00:00:00 00:00:00 Only John Dominguez. 04717.1.[address] 3.430.2.7 Hospit a .3.122175 l .8 2023-03-12 2023-03-12 [facility] [id number] [address] [place] 00:00:00 00:00:[address] 2023-03-12 2023-03-12 Travel 1.2.840.1 1.2.832.931 0365 106315 Methodi 00:00:00 00:00:[address] 3.430.2.7 0.2.7.3.698 Ho spita .3.310178 084.8 l .8 2023-03-12 2023-03-12 Travel 1.2.840.1 1.2.528.554 0863 812075 Methodi 00:00:00 00:00:[address] 3.430.2.7 0.2.7.3.698 Ho spita .3.929012 084.8 l .8 2023-03-06 2023-03-06 Travel 1.2.840.1 1.2.935.828 5812 014951 Methodi 00:00:00 00:00:[address] 3.430.2.7 0.2.7.3.698 Ho spita .3.754355 084.8 l .8 2023-03-06 2023-03-06 Travel 1.2.840.1 1.2.909.199 5457 383472 Methodi 00:00:00 00:00:[address] 3.430.2.7 0.2.7.3.698 Ho spita .3.794450 084.8 l .8 2023-02-16 2023-02-16 Refill Miguel Angel 1.2.840.1 2099 332963 Methodi 00:00:00 00:00:[address] 3.430.2.7 Hospit a .3.698709 l .8 2023-02-16 2023-02-16 Refill Yasmine Boogie 1.2.840.1 [id number] Methodi 00:00:00 00:00:[address] 3.430.2.7 Hospit a .3.653254 l .8 2023-02-162023-02-16 Refill Miguel Angel, 1.2.840.1 2099 709132 Methodi 00:00:00 00:00:[address] 3.430.2.7 Hospit a .3.943977 l .8 2023-02-16 2023-02-16 Refill Yasmine Boogie 1.2.840.1 [id number] Methodi 00:00:00 00:00:[address] 3.430.2.7 Hospit a .3.554891 l .8 2023-02-10 2023-02-10 Office Alexey, 1.2.840.1 2099 [id number] Methodi 13:30:00 14:45:42 Visit John Prado 55461.1.[address] 3.430.2.7 Hospit a .3.110271 l .8 2023-02-10 2023-02-10 Office Alexey, 1.2.840.1 2099 185806 Methodi 13:30:00 14:45:42 Visit John Prado 96324.1.[address] 3.430.2.7 Hospit a .3.241637 l .8 2023-02-10 2023-02-10 Travel 1.2.840.1 1.2.091.954 9303 544500 Methodi 00:00:00 00:00:[address] 3.430.2.7 0.2.7.3.698 Ho spita .3.346331 084.8 l .8 2023-02-10 2023-02-10 Travel 1.2.840.1 1.2.053.010 0176 879625 Methodi 00:00:00 00:00:[address] 3.430.2.7 0.2.7.3.698 Ho spita .3.474614 084.8 l .8 2022-12-22 2022-12-22 Refill Yasmine Boogie 1.2.840.1 [id number] Methodi 00:00:00 00:00:[address] 3.430.2.7 Hospit a .3.909115 l .8 2022-12-22 2022-12-22 Refill Yasmine Boogie 1.2.840.1 [id number] Methodi 00:00:00 00:00:[address] 3.430.2.7 Hospit a .3.676670 l .8 2022-12-18 2022-12-18 Telephone Howard, 1.2.840.1 [id number] Methodi 00:00:00 00:00:[address] 3.430.2.7 Hospit a .3.281397 l .8 2022-12-18 2022-12-18 Telephone Howard, 1.2.840.1 [id number] Methodi 00:00:00 00:00:[address] 3.430.2.7 Hospit a .3.871783 l .8 2022-11-29 2022-11-29 Refill Alexey, 1.2.840.1 [id number] 2099 817674 Methodi 00:00:00 00:00:[address]1.[address] 3.430.2.7 Hospit a .3.399157 l .8 2022-11-29 2022-11-29 Refill Alexey, 1.2.840.1 [id number] 2099 200477 Methodi 00:00:00 00:00:00 John Prado 16781.1.[address] 3.430.2.7 Hospit a .3.338941 l .8 2022-11-03 2022-11-03 Refill Yasmine Boogie 1.2.840.1 [id number] Methodi 00:00:00 00:00:[address] 3.430.2.7 Hospit a .3.955595 l .8 2022-11-03 2022-11-03 Yasmine Harman 1.2.840.1 [id number] Methodi 00:00:00 00:00:[address] 3.430.2.7 Hospit a .3.538050 l .8 2022-10-28 2022-10-28 Telephone Miguel Angel, 1.2.840.1 [id number] Methodi 00:00:00 00:00:[address] 3.430.2.7 Hospit a .3.925195 l .8 2022-10-28 2022-10-28 Telephone Miguel Angel, 1.2.840.1 [id number] Methodi 00:00:00 00:00:[address] 3.430.2.7 Hospit a .3.021081 l .8 2022-10-24 2022-10-24 Telephone Tracey, 1.2.840.1 [id number] Methodi 00:00:00 00:00:[address] 3.430.2.7 Hospit a .3.526104 l .8 2022-10-24 2022-10-24 Orders Alexey, 1.2.840.1 [id number] 2100 [id number] Methodi 00:00:00 00:00:00 Only John Prado 98861.1.[address] 3.430.2.7 Hospit a .3.179785 l .8 2022-10-24 2022-10-24 Telephone Tracey, 1.2.840.1 [id number] Methodi 00:00:00 00:00:[address] 3.430.2.7 Hospit a .3.991676 l .8 2022-10-24 2022-10-24 Orders Alexey, 1.2.840.1 2099 017328 Methodi 00:00:00 00:00:00 Only John Prado 34363.1.[address] 3.430.2.7 Hospit a .3.185403 l .8 2022-10-22 2022-10-22 Telephone Younis, 1.2.840.1 [id number] 21 [id number] Methodi 00:00:00 00:00:00 John Dominguez. 61162.1.[address] 3.430.2.7 Hospit a .3.684856 l .8 2022-10-22 2022-10-22 Telephone Younis, 1.2.840.1 [id number] 21 [id number] Methodi 00:00:00 00:00:00 John Dominguez. [address]0114.1.[address] 3.430.2.7 Hospit a .3.700493 l .8 2022-10-16 2022-10-16 Travel 1.2.840.1 1.2.919.342 8278 707941 Methodi 00:00:00 00:00:[address] 3.430.2.7 0.2.7.3.698 Ho spita .3.545528 084.8 l .8 2022-10-16 2022-10-16 Travel 1.2.840.1 1.2.884.747 2636 674617 Methodi 00:00:00 00:00:[address] 3.430.2.7 0.2.7.3.698 Ho spita .3.992820 084.8 l .8 2022-10-08 2022-10-08 Travel 1.2.840.1 1.2.849.307 9036 159026 Methodi 00:00:00 00:00:[address] 3.430.2.7 0.2.7.3.698 Ho spita .3.126598 084.8 l .8 2022-10-08 2022-10-08 Travel 1.2.840.1 1.2.796.434 0514 661101 Methodi 00:00:00 00:00:[address] 3.430.2.7 0.2.7.3.698 Ho spita .3.448329 084.8 l .8 2022-09-22 2022-09-22 Office Younis, 1.2.840.1 [id number] Methodi 14:40:00 16:11:00 Visit John Prado 77962.1.[address] 3.430.2.7 Hospit a .3.182826 l .8 2022-09-22 2022-09-22 Office Younis, 1.2.840.1 2099453 Methodi 14:40:00 16:11:00 Visit John Prado 03877.1.[address] 3.430.2.7 Hospit a .3.553848 l .8 2022-09-22 2022-09-22 Outpatient [facility] [id number] [place] 00:00:00 00:00:[address] 2022-09-22 2022-09-22 Travel 1.2.840.1 1.2.371.003 7377 138222 Methodi 00:00:00 00:00:[address] 3.430.2.7 0.2.7.3.698 Ho spita .3.778323 084.8 l .8 2022-09-22 2022-09-22 Travel 1.2.840.1 1.2.869.603 0578 845367 Methodi 00:00:00 00:00:[address] 3.430.2.7 0.2.7.3.698 Ho spita .3.073972 084.8 l .8 2022-09-19 2022-09-19 Travel 1.2.840.1 1.2.863.983 4773 526279 Methodi 00:00:00 00:00:[address] 3.430.2.7 0.2.7.3.698 Ho spita .3.236696 084.8 l .8 2022-09-19 2022-09-19 Travel 1.2.840.1 1.2.019.147 7498 610307 Methodi 00:00:00 00:00:[address] 3.430.2.7 0.2.7.3.698 Ho spita .3.716901 084.8 l .8 2022-08-18 2022-08-18 Refill Young, 1.2.840.1 [id number] 2099 750018 Methodi 00:00:00 00:00:[address] 3.430.2.7 Hospit a .3.933394 l .8 2022-08-18 2022-08-18 Refill Howard, 1.2.840.1 [id number] 2099 204333 Methodi 00:00:00 00:00:00 Jackelyn D [address]994.1.[address] 3.430.2.7 Hospit a .3.166782 l .8 2022-08-18 2022-08-18 Refill Dallas, 1.2.840.1 [id number] 2100 199344 Methodi 00:00:00 00:00:[address] 3.430.2.7 Hospit a .3.144608 l .8 2022-08-18 2022-08-18 Refill Howard, 1.2.840.1 [id number] 2099 [id number] Methodi 00:00:00 00:00:00 Jackelyn D [address]43.1.[address] 3.430.2.7 Hospit a .3.216561 l .8 2022-08-13 2022-08-13 Telephone Youngraham, 1.2.840.1 [id number] Methodi 00:00:00 00:00:[address]1.[address] 3.430.2.7 Hospit a .3.346098 l .8 2022-08-13 2022-08-13 Telephone Younis, 1.2.840.1 [id number] 21 [id number] Methodi 00:00:00 00:00:00 John Prado 53433.1.[address] 3.430.2.7 Hospit a .3.079504 l .8 2022-08-12 2022-08-12 Office Younis, 1.2.840.1 [id number] 2099 [id number] Methodi 13:40:00 14:28:32 Visit John Prado 98011.1.[address] 3.430.2.7 Hospit a .3.300816 l .8 2022-08-12 2022-08-12 Office Younis, 1.2.840.1 [id number] 2099 743637 Methodi 13:40:00 14:28:32 Visit John Prado 62790.1.[address] 3.430.2.7 Hospit a .3.618452 l .8 2022-08-12 2022-08-12 Travel 1.2.840.1 1.2.176.742 6216 285509 Methodi 00:00:00 00:00:[address] 3.430.2.7 0.2.7.3.698 Ho spita .3.205096 084.8 l .8 2022-08-12 2022-08-12 Travel 1.2.840.1 1.2.277.599 6141 914128 Methodi 00:00:00 00:00:[address] 3.430.2.7 0.2.7.3.698 Ho spita .3.809082 084.8 l .8 2022-07-14 2022-07-14 Travel 1.2.840.1 1.2.073.152 9101 967844 Methodi 00:00:00 00:00:[address] 3.430.2.7 0.2.7.3.698 Ho spita .3.387572 084.8 l .8 2022-07-14 2022-07-14 Travel 1.2.840.1 1.2.071.532 4133 448553 Methodi 00:00:00 00:00:[address] 3.430.2.7 0.2.7.3.698 Ho spita .3.766755 084.8 l .8 2022-03-13 2022-03-13 Refill Younis, 1.2.840.1 [id number] 2099 772125 Methodi 00:00:00 00:00:00 John Prado 54956.1.[address] 3.430.2.7 Hospit a .3.774935 l .8 2022-02-28 2022-02-28 Refill Younis, 1.2.840.1 [id number] 2099 [id number] Methodi 00:00:00 00:00:00 John DominguezJosé [address]3428.1.[address] 3.430.2.7 Hospit a .3.773164 l .8 2022-01-20 2022-01-20 Refill Younis, 1.2.840.1 [id number] 2099 096800 Methodi 00:00:00 00:00:00 John Dominguez. [address]5055.1.[address] 3.430.2.7 Hospit a .3.813947 l .8 2022-01-07 2022-01-07 Office Younis, 1.2.840.1 [id number] 2099 [id number] Methodi 10:50:00 12:23:19 Visit John DominguezJosé 50845.1.[address] 3.430.2.7 Hospit a .3.102951 l .8 2022-01-06 2022-01-06 Travel 1.2.840.1 1.2.626.130 2772 480781 Methodi 00:00:00 00:00:[address] 3.430.2.7 0.2.7.3.698 Ho spita .3.534179 084.8 l .8 2021-05-09 2021-05-09 Outpatient YOUNIS, [facility] [id number] [place] 00:00:00 00:00:[address] JOHN [address] [...] The eGFR i s based on the 97958-0) CKD-EPI 2020 eq uation. To calculate the [...] . Sodium (test code = 142 mmol/L 592-780 1976-2) Potassium (test code = 4.6 mmol/L 3.5-5.3 2823-3) Chloride (test code = 111 mmol/L 98-110 H 2074-0) CO2 (test code = 2027-) 25 mmol/L 20-32 Calcium (test code = 8.9 mg/dL 8.6-10.4 73447-4) ASHLIE (test code = ASHLIE) FASTING:YES FASTING: YES RAC (test code = RAC) Performing Organization Information: Site ID: MENAA Name: [facility] Address: [address] [place], [place] [address] Director: Logan Soto Lab Interpretation (test Abnormal code = 76273-5) [facility] metabolic [id number] 01:06:00 Test Item Value Reference Interpretation Comments Range Glucose (test code 104 mg/dL 65-99 H Fasting reference = 2345-7) interval For so meone without known diabetes, a glu cose valuebetween 10 0 and 125 mg/dL is consistent withprediabetes and should be confi rmed with afollow-up test. BUN (test code = 27 mg/dL 7-25 H 3094-0) Creatinine (test 1.25 mg/dL 0.60-0.95 H code = 2160-0) eGFR (test code = 42 See_Comment [place] [address]-0) the CKD-EPI 202 1 equation. To calculate the n ew eGFR from a pre vious Creatinine or Cystatin Cresul t, go to [email or web address]://www.Essential [employer] meche.o rg/professional s/kdo qi/gfr%5Fcalcul ator [Automated mess age] The system [employer] generated this result transmit kate reference [...] . Sodium (test code = 142 mmol/L 202-280 4318-2) Potassium (test 4.6 mmol/L 3.5-5.3 code = 2823-3) Chloride (test code 111 mmol/L 98-110 H = 5-0) CO2 (test code = 25 mmol/L 20-32 2027-9) Calcium (test code 8.9 mg/dL 8.6-10.4 = 29114-7) ASHLIE (test code = FASTING:YES ASHLIE) FASTING: YES RAC (test code = Performing RAC) Organization Information: Site ID: RGA Name: [facility] Address: [address] [place] [address] Director: Logan Soto Lab Interpretation Abnormal (test code = 31290-7) [facility] metabolic [id number] 01:06:00 Test Item Value Reference Interpretation Comments [...] L [place] [address]-6) the CKD-EPI 202 1 equation. To calculate the n ew eGFR from a pre vious Creatinine or Cystatin Cresul t, go to [email or web address].de.o rg/professional s/kdo qi/gfr%5Fcalcul ator [Automated mess age] The system [employer] generated this result transmit kate reference [...] . Sodium (test code = 142 mmol/L 675-656 5303-2) Potassium (test 4.6 mmol/L 3.5-5.3 code = 2823-3) Chloride (test code 111 mmol/L 98-110 H = 5-0) CO2 (test code = 25 mmol/L 20-32 8-9) Calcium (test code 8.9 mg/dL 8.6-10.4 = 03745-8) ASHLIE (test code = FASTING:YES ASHLIE) FASTING: YES RAC (test code = Performing RAC) Organization Information: Site ID: RGA Name[facility] Address: [address] [place] [address] Director: Logan Soto Lab Interpretation Abnormal (test code = 33466-7) [facility] [id number] 18:27:00 Test Item Value Reference Range Interpretation Comments POC creatinine (test 2.2 mg/dl 0.5-0.9 H Operato r Name: code = 73115-2) Mariana Hudson I D: [id number] Lab Interpretation Abnormal (test code = 68620-0) [facility] [id number] 18:27:00 Test Item Value Reference Range Interpretation Comments Estimated GFR (test 20 mL/min/1.73 m2 A Caterg ory Units code = 75680-7) Interpretati onG1 >=90 Normal or highG 2 60-89 Mildly decrease dG3a 45-59 Mildly to moderately decr rxbpkU6l 30-44 Moderatel y to severely decrea sedG4 15-29 Severely decreasedG5 <15 Kidney failureThe eGFR was calculated usin g the Chronic Kidney Disease Epidemiology Collaboration ( CKD-EPI) equation. Interpretation is based on recommendati ons of the [facility] [place] Disease Outcome s Quality Initiat carlos a (NK-KDOQI) pub lished in 2013. Lab Interpretation Abnormal (test code = 23437-0) [facility] [id number] 18:27:00 Test Item Value Reference Range Interpretation Comments POC creatinine (test 2.2 mg/dl 0.5-0.9 H Operato r Name: code = 89314-6) [facility] [id number] Lab Interpretation Abnormal (test code = 08496-8) [facility] [id number] 18:27:00 Test Item Value Reference Range Interpretation Comments Estimated GFR (test 20 mL/min/1.73 m2 A Caterg ory Units code = 62787-1) Interpretati onG1 >=90 Normal or highG 2 60-89 Mildly decrease dG3a 45-59 Mildly to moderately decr bymhqZ9e 30-44 Moderatel y to severely decrea sedG4 15-29 Severely decreasedG5 <15 Kidney failureThe eGFR was calculated usin g the Chronic Kidney Disease Epidemiology Collaboration ( CKD-EPI) equation. Interpretation is based on recommendati ons of the [facility] [employer] [facility] Disease Outcome s Quality Initiat carlos a (NK-KDOQI) pub lished in 2013. Lab Interpretation Abnormal (test code = 41779-9) [facility] [id number] 18:27:00 Test Item Value Reference Range Interpretation Comments POC creatinine (test 2.2 mg/dl 0.5-0.9 H Operato r Name: code = 04771-3) Mariana Hudson I D: [id number] Lab Interpretation Abnormal (test code = 97380-1) [facility] [id number] 18:27:00 Test Item Value Reference Range Interpretation Comments Estimated GFR (test 20 mL/min/1.73 m2 A Caterg ory Units code = 85598-6) Interpretati onG1 >=90 Normal or highG 2 60-89 Mildly decrease dG3a 45-59 Mildly to moderately decr rtkbaS5v 30-44 Moderatel y to severely decrea sedG4 15-29 Severely decreasedG5 <15 Kidney failureThe eGFR was calculated usin g the Chronic Kidney Disease Epidemiology Collaboration ( CKD-EPI) equation. Interpretation is based on recommendati ons of the National Ki [employer]-Kidn ey Disease Outcome s Quality Initiat carlos a (NKF-KDOQI) pub lished in 2013. Lab Interpretation Abnormal (test code = 09706-2) [facility]
[2023-05-21] MEDS ORDERED: FUROSEMIDE 40 MG/4 ML VIAL IV ONE (16:30)
--- NOTE | 2023-05-21 16:42 | RAD REPORT ---
EXAM DESCRIPTION: Laton[place] Single View05/21/2023 4:31 pm CLINICAL HISTORY: CHF COMPARISON: Chest Single View dated 09/06/2022; Chest Pa And Lat (2 Views) dated 09/12/2019; Chest Pa And Lat (2 Views) dated 02/23/2019; CHEST PA AND LAT 2 VIEW dated 08/26/2010 TECHNIQUE: Portable AP view of the chest. FINDINGS: Mild patchy bibasilar airspace opacities with central interstitial prominence. Linear luce ncy along the periphery of the right hemithorax favored to represent a skin fold. No pneumothorax or effusion. Marked cardiomegaly. Sequelae of prior median sternotomy. The mediastinal contours are unre markable. IMPRESSION: Findings suggestive of CHF or vascular congestion.
[2023-05-21 17:26] LABS: Hematocrit 26.1 % (36.0-45.0); Lymphocytes % 12.7 % (15.3-44.8); MCV 81.3 fL (80-100); MPV 7.4 fL (7.6-11.3); Platelets 279 thou/uL (152-406); RBC Red Blood Cell Count 3.21 M/uL (3.86-4.86)
[2023-05-21 17:53] LABS: Albumin 2.9 g/dL (3.4-5.0); Bilirubin Total 0.3 mg/dL (0.2-1.0); Magnesium 2.4 mg/dL (1.6-2.4); Potassium 4.9 mEq/L (3.5-5.1); Protein, Total 6.5 g/dL (6.4-8.2)
[2023-05-21 18:00] LABS: Thyroid Stimulating Hormone 6.83 uIU/mL (0.358-3.740)
[2023-05-21] MEDS: MELATONIN 5 MG TABLET PO SCH (21:57)
[2023-05-21] MEDS: HYDRALAZINE HCL 25 MG TABLET PO SCH (22:55)
[2023-05-22] MEDS: ACETAMINOPHEN 500 MG TAB PO PRN (01:27)
[2023-05-22 04:18] LABS: Magnesium 2.4 mg/dL (1.6-2.4); Potassium 4.3 mEq/L (3.5-5.1)
[2023-05-22] MEDS ORDERED: FUROSEMIDE 40 MG/4 ML VIAL IV SCH (09:00)
[2023-05-22] MEDS: METHYLCELLULOSE 500 MG PO SCH (09:00)
[2023-05-22] MEDS: Dapagliflozin Propanediol [Farxiga] 10 MG Tablet PO SCH (09:00)
[2023-05-22] MEDS ORDERED: AMOX/K CLAV 500 MG TAB PO ONE (09:12)
[2023-05-22] MEDS: AMIODARONE HCL 200 MG TAB PO SCH (09:39)
[2023-05-22] MEDS: HYDRALAZINE HCL 25 MG TABLET PO SCH ×2 (09:39→20:21)
[2023-05-22] MEDS: VALSARTAN 160 MG TAB PO SCH (09:39)
[2023-05-22] MEDS: DOCUSATE NA 100 MG CAP PO SCH (09:39)
[2023-05-22] MEDS: FERROUS SULFATE 325 MG TAB PO SCH (09:40)
[2023-05-22] MEDS: ASPIRIN EC 81 MG TAB PO SCH (09:40)
[2023-05-22] MEDS: LEVOTHYROXINE SOD 0.075 MG TAB PO SCH (09:40)
--- NOTE | 2023-05-22 13:52 | RAD REPORT ---
EXAM DESCRIPTION: MRI - Knee Left Wo Cont - 05/22/2023 1:40 pm CLINICAL HISTORY: fall, knee pain Pain and swelling COMPARISON: <Comparisons> FINDINGS: Posterior horn and body of the medial meniscus is truncated with abnormal signal compatibl e with tear. No evidence of displaced meniscal tissue. The lateral meniscus is intact. The ACL and PCL are intact. The collateral ligaments are intact. Static patellar alignment is normal. Moderate diffuse chondromalacia patella. Patellar retinacula are intact. Patellar and quadriceps tendons are normal. No fracture or significant bone bruise. 7 x 3 cm hematoma may be present anterior soft tissues of the knee. Small joint effusion. IMPRESSION: Complex tear of the posterior horn of medial meniscus without displaced tissue. No fracture or subluxation. 7 cm soft tissue hematoma suspected anterior to the patella tendon.
--- NOTE | 2023-05-22 15:42 | HP ---
Date of Admission: 05/21/2023 Chief Complaint: Weight gain, leg swelling, and shortness of breath. History Of Present Illness: This is an 87-year-old very pleasant female patient, who came into office today with her daughter complaining of increasing bilateral leg swelling associated with shortness of breath with minimal activity including walking just 3 steps in the room causes her to have shortness of breath associated with some wheezing and she is also reporting having some paroxysmal nocturnal dyspnea and orthopnea lately. The patient has gained almost 20 pounds in last month to 2 months. She has fallen down multiple times recently and after 2 recent falls, she came to emergency room with left knee pain and her knee x-ray was negative. She does have some swelling and bruising over the left anterior knee. She still continued to have left knee pain and trouble walking. She uses walker. The patient lives at [facility]. Review of Systems: Musculoskeletal: As mentioned above. Cardiovascular: As mentioned above. LOCK PLATER: The patient has impaired memory. All other systems reviewed and negative. Allergies: TO CODEINE, HYDROCODONE, MORPHINE, PENTAZOCINE, AND PENTOXIFYLLINE. Medications: List reviewed. Past Medical History: Significant for hypertension, mixed hyperlipidemia, coronary artery disease, type 2 diabetes mellitus, chronic kidney disease, anemia, hypothyroidism, anemia, carotid artery stenosis and osteoarthritis. Past Surgical History: Tonsillectomy, tube ligation, hysterectomy, CABG, left carotid endarterectomy, knee surgery, foot surgery and back surgery. Social History: Negative for smoking and alcohol use at present but prior history of smoking. Family History: Father and sister had coronary artery disease, brother had leukemia. Physical Examination: Vital Signs: Upon admission; temperature 98, pulse 57, respiratory rate 16, blood pressure 149/53, oxygen saturation 93% on room air. Height 5 feet 2 inches, weight 174 pounds. General: Awake, alert, oriented, not in distress. HEENT: Head atraumatic, normocephalic. Conjunctivae nonerythematous. Sclerae white. Mouth, no thrush or edema noted. Ears/Nose, no mass, lesion, discharge noted. Neck: Supple. No JVD, lymph nodes, bruit, thyromegaly noted. Lungs: Presence of rales noted in bilateral lower 1/3 lung sue. Not using accessory muscles of respiration at rest. Heart: Normal heart sounds, no murmur or gallop. Abdomen: Soft, bowel sounds normal. No guarding, rigidity, tenderness, mass, hepatosplenomegaly, distention, or bruit noted. Extremities: The patient has bilateral grade 4 pedal edema extending all the way to her both upper thighs. Skin: No rash, ulcer, cellulitis. Lymphatics: No lymph node enlargement in neck, supraclavicular, infraclavicular region. Neuro: No focal neurological deficit. Chest: Unremarkable. External Genitalia: Deferred. Rectal: Deferred. Laboratory Data: White count 8, hemoglobin 8.1, platelets 279. Sodium 140, potassium 4.9, chloride 112, bicarb 24, BUN 29, creatinine 1.10, glucose 126. Liver function tests unremarkable. TSH 6.830. Chest x-ray shows changes consistent with congestive heart failure. Impression: 1. Chronic diastolic heart failure, with acute exacerbation. 2. Chronic kidney disease, stage 3A. 3. Anemia, chronic, unspecified. 4. Hypertension. 5. Hyperlipidemia. 6. Coronary artery disease. 7. Osteoarthritis, multiple sites. 8. Type 2 diabetes mellitus. 9. Hypothyroidism. Plan: We will go ahead and admit her to hospital for further evaluation and management of this problem. The patient is appropriate for inpatient and is expected to spend 2 midnights in hospital. For congestive heart failure, we will start the patient on IV diuretic medication, monitor her intake, output, daily weight. For her hypertension, we will continue current antihypertensive medication, make adjustment on medication if it becomes necessary. For her hyperlipidemia, we will continue her statin therapy per order. For coronary artery disease, we will continue her current home medications. Monitor her intake, output, daily weight, and congestive heart failure will be treated with IV diuretic medication, which is Lasix and we will get an echo with Doppler. I will plan to do MRI of left knee tomorrow. Details and plan of treatment discussed with the patient and the patient's daughter, and fall precaution was ordered. WINDY/MODL Voice ID: [id number]
[2023-05-22 15:47] VITALS: BMI 31.9
--- NOTE | 2023-05-22 16:27 | PN ---
Date of Progress Note: 05/22/2023 Subjective: The patient was seen this morning for followup. No new complaints or problems reported by the patient. She was lying in bed, not in any distress. Her leg swelling is better compared to y esterday. The patient was on oxygen 2 L/minute nasal cannula. Objective: Vital Signs: Reviewed. HEENT: Unremarkable. Lungs: Bilateral good equal air entry. Presence of rales noted in lower 1/3 of both lung sue. N ot using accessory muscles of respiration. Heart: Sounds normal. Abdomen: Soft. Bowel sounds normal. No guarding, rigidity, tenderness, distention. Extremities: Bilateral leg edema present, but definitely much better than yesterday. Impression: 1.Chronic diastolic heart failure, with acute exacerbation. 2.Coronary artery disease. 3.Hypertension. 4.Type 2 diabetes mellitus. 5.Chronic kidney disease, stage 3A. 6.Anemia, chronic, unspecified. Plan: We will go ahead and continue current medication which is current IV diuretic therapy, continu e current antihypertensive and statin therapy. Diabetes will be managed with current medication per order. Her left anterior knee is swollen and has large area of bruising with some warmness of the sk in and slightly pink, especially at the border region. There is no discharge or bleeding, but this a angelina is tender to touch. After I saw her, I did request consultation from senior education specialist, Dr. Alcantara and he evaluated the patient and informed me that he does not suggest any intervention at this p oint. MRI of the left knee without contrast was ordered and we will follow up on that result. WINDY/MODL Voice ID: [id number] Report ID: [id number]
[2023-05-22] MEDS: DOXAZOSIN 2 MG TAB PO SCH (20:22)
[2023-05-22] MEDS: AMOX/K CLAV 500 MG TAB PO SCH (20:22)
[2023-05-22] MEDS: MELATONIN 5 MG TABLET PO SCH (22:42)
[2023-05-23] MEDS: ACETAMINOPHEN 500 MG TAB PO PRN (02:55)
[2023-05-23 07:47] LABS: Absolute Lymphocytes (CBC) 1.3 K/uL (0.7-4.9); Hematocrit 22.4 % (36.0-45.0); Lymphocytes % 15.2 % (15.3-44.8); MCV 81.2 fL (80-100); MPV 7.5 fL (7.6-11.3); Platelets 241 thou/uL (152-406); RBC Red Blood Cell Count 2.76 M/uL (3.86-4.86)
[2023-05-23 07:57] LABS: Magnesium 2.4 mg/dL (1.6-2.4); Potassium 4.5 mEq/L (3.5-5.1)
[2023-05-23] MEDS: ASPIRIN EC 81 MG TAB PO SCH (08:54)
[2023-05-23] MEDS: FERROUS SULFATE 325 MG TAB PO SCH (08:54)
[2023-05-23] MEDS: HYDRALAZINE HCL 25 MG TABLET PO SCH ×2 (08:55→20:56)
[2023-05-23] MEDS: AMOX/K CLAV 500 MG TAB PO SCH ×2 (08:55→20:56)
[2023-05-23] MEDS: LEVOTHYROXINE SOD 0.075 MG TAB PO SCH (08:55)
[2023-05-23] MEDS: VALSARTAN 160 MG TAB PO SCH (08:55)
[2023-05-23] MEDS: AMIODARONE HCL 200 MG TAB PO SCH (08:55)
[2023-05-23] MEDS: DOCUSATE NA 100 MG CAP PO SCH (08:55)
[2023-05-23] MEDS: Dapagliflozin Propanediol [Farxiga] 10 MG Tablet PO SCH (08:56)
[2023-05-23] MEDS: FUROSEMIDE 40 MG/4 ML VIAL IV SCH ×2 (08:56→20:56)
[2023-05-23] MEDS: METHYLCELLULOSE 500 MG PO SCH (08:57)
[2023-05-23] MEDS ORDERED: NA CHLORIDE 0.9% 250 ML ONE (11:33)
--- NOTE | 2023-05-23 11:40 | PN ---
Date of Progress Note: 05/23/2023 Subjective: The patient was seen this morning for followup. She was lying in bed, not in distress. Reports that her shortness of breath is not significantly better, but just slightly better. Objective: Vital Signs: Reviewed. HEENT: Unremarkable. Lungs: Clear to auscultation except some wheezing noted and rales noted in lower lung sue. Heart: Heart sounds normal. Abdomen: Soft, bowel sounds normal. No guarding, rigidity, tenderness, distention. Extremities: Bilateral leg edema, remains unchanged from yesterday. Laboratory Data: Today, white count 8.3, hemoglobin 7.1, platelets 241. Sodium 138, potassium 4.5, chloride 108, bicarb 27, BUN 27, creatinine 1.04, glucose 113, magnesium 2.4. Impression: 1.Congestive heart failure, chronic, diastolic, with acute exacerbation. 2.Anemia. 3.Hypertension. 4.Type 2 diabetes mellitus. 5.Coronary artery disease. 6.Cellulitis, left knee. 7.Left knee meniscus tear. Plan: We will go ahead and continue IV Lasix, but increase dose from 40 mg once a day to 2 times a d ay. MRI from yesterday results reviewed showing complex tear of the posterior horn of medial meniscu s without displaced tissue and has 7 cm soft tissue hematoma anterior to the patella tendon. The pat ient does have some cellulitis changes over this left anterior knee and oral antibiotic Augmentin was started yesterday. Today, this area looks slightly better compared to yesterday and it is not as te nder as yesterday also. Physical therapy to work with the patient to ambulate her, considering her h emoglobin has dropped low today. She will benefit from 1 unit of PRBC blood transfusion and this was discussed with her. She is willing to get that and order was written. Lasix dose was increased fro m once a day to 2 times a day. We will monitor electrolytes, renal function, and I will see her thee ayala for followup. WINDY/MODL Voice ID: [id number] Report ID: [id number]
[2023-05-23] MEDS ORDERED: ENOXAPARIN 40 MG/0.4 ML SQ SCH (17:00)
[2023-05-23 18:04] LABS: Hematocrit 28.6 % (36.0-45.0)
[2023-05-23] MEDS: MELATONIN 5 MG TABLET PO SCH (20:56)
[2023-05-23] MEDS: DOXAZOSIN 2 MG TAB PO SCH (20:57)
[2023-05-24 07:56] LABS: Absolute Lymphocytes (CBC) 1.1 K/uL (0.7-4.9); Lymphocytes % 13.6 % (15.3-44.8); MCV 79.7 fL (80-100); MPV 7.7 fL (7.6-11.3); Platelets 252 thou/uL (152-406); RBC Red Blood Cell Count 3.39 M/uL (3.86-4.86)
[2023-05-24 08:08] LABS: Magnesium 2.2 mg/dL (1.6-2.4); Potassium 3.9 mEq/L (3.5-5.1)
[2023-05-24] MEDS ORDERED: POTASSIUM CL SA 10 MEQ TAB PO ONE (08:44)
[2023-05-24] MEDS: FERROUS SULFATE 325 MG TAB PO SCH (08:58)
[2023-05-24] MEDS: AMOX/K CLAV 500 MG TAB PO SCH ×2 (08:58→20:22)
[2023-05-24] MEDS: ASPIRIN EC 81 MG TAB PO SCH (08:58)
[2023-05-24] MEDS: LEVOTHYROXINE SOD 0.075 MG TAB PO SCH (08:58)
[2023-05-24] MEDS: DOCUSATE NA 100 MG CAP PO SCH (08:58)
[2023-05-24] MEDS: HYDRALAZINE HCL 25 MG TABLET PO SCH ×2 (08:58→20:23)
[2023-05-24] MEDS: AMIODARONE HCL 200 MG TAB PO SCH (08:58)
[2023-05-24] MEDS: VALSARTAN 160 MG TAB PO SCH (08:59)
[2023-05-24] MEDS: FUROSEMIDE 40 MG/4 ML VIAL IV SCH ×2 (08:59→20:23)
[2023-05-24] MEDS: Dapagliflozin Propanediol [Farxiga] 10 MG Tablet PO SCH (08:59)
[2023-05-24] MEDS: METHYLCELLULOSE 500 MG PO SCH (09:00)
[2023-05-24] MEDS: ACETAMINOPHEN 500 MG TAB PO PRN (20:22)
[2023-05-24] MEDS: DOXAZOSIN 2 MG TAB PO SCH (20:23)
[2023-05-24] MEDS: MELATONIN 5 MG TABLET PO SCH (21:54)
--- NOTE | 2023-05-25 07:07 | ECHO ---
HEIGHT: 5 ft 2 in WEIGHT: 166 lb 1.6 oz DATE OF STUDY: 05/22/[address]: Riaz Yadav MD 2-DIMENSIONAL: YES M.MODE: YES DOPPLER: YES COLOR FLOW: YES TDS: PORTABLE: YES DEFINITY: BUBBLE STUDY: DIAGNOSIS: CONGESTIVE HEART FAILURE CARDIAC HISTORY: CATHERIZATION: YES SURGERY: YES PROSTHETIC VALVE: NO PACEMAKER: NO MEASUREMENTS (cm) DIASTOLIC (NORMALS) SYSTOLIC (NORMALS) IVSd 0.9 (0.6-1.2) LA Diam 4.1 (1.9-4.0) LVEF 60% LVIDd 5.5 (3.5-5.7) LVIDs 4.0 (2.0-3.5) %FS 28% LVPWd 1.0 (0.6-1.2) Ao Diam 2.5 (2.0-3.7) 2 DIMENSIONAL ASSESSMENT: RIGHT ATRIUM: NORMAL LEFT ATRIUM: ENLARGED RIGHT VENTRICLE: NORMAL LEFT VENTRICLE: NORMAL TRICUSPID VALVE: MODERATE TRICUSPID REGURGITATION MITRAL VALVE: MODERATE MITRAL REGURGITATION PULMONIC VALVE: MILD PULMONIC INSUFFICIENCY AORTIC VALVE: NORMAL PERICARDIAL EFFUSION: NONE AORTIC ROOT: NORMAL LEFT VENTRICULAR WALL MOTION: NORMAL DOPPLER/COLOR FLOW: SEE BELOW COMMENTS: 1. NORMAL LEFT VENTRICULAR EJECTION FRACTION 55-60% 2. MODERATE DIASTOLIC DYSFUNCTION 3. 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 LEFT ATRIAL ENLARGEMENT 5. MODERATE MITRAL REGURGITATION 6. MODERATE TRICUSPID REGURGITATION TECHNOLOGIST: SOLA RAMESH
--- NOTE | 2023-05-25 07:39 | PN ---
Date of Progress Note: 05/24/2023 Subjective: The patient was seen this morning for followup. She was lying in bed, not in any distre ss. Reports that her wheezing is better. No other new complaints or problems reported. Leg swellin g is better. Objective: Vital Signs: Reviewed. HEENT: Unremarkable. Lungs: Clear to auscultation. Not in any respiratory distress. No wheezing. Very minimal basal ra les, overall much better than before. Heart: Sounds normal. Abdomen: Soft. Bowel sounds normal. No guarding, rigidity, tenderness, distention. Extremities: Bilateral leg edema present, but significantly better than before. Left knee swelling is better and bruising from left anterior knee hematoma is better also. Tenderness from left medial knee aspect is better as well. Laboratory Data: White count 7.8, hemoglobin 8.7, platelets 252. Sodium 138, potassium 3.9, chlorid e 106, bicarb 28, BUN 32, creatinine 1.13, glucose 116. Impression: 1.Congestive heart failure, chronic, diastolic, with acute exacerbation. 2.Type 2 diabetes mellitus. 3.Hypertension. 4.Anemia. 5.Cellulitis, left knee. Plan: We will go ahead and continue current diuretic therapy. No need for further intervention for anemia. We will continue current antibiotic for cellulitis. I will see her tomorrow for followup. When I saw her, she was not using any oxygen and her room air oxygen saturation was 93%. Possible discharge tomorrow depending on her condition. WINDY/MODL Voice ID: [id number] Report ID: [id number]
[2023-05-25] MEDS: Dapagliflozin Propanediol [Farxiga] 10 MG Tablet PO SCH (09:00)
[2023-05-25] MEDS: METHYLCELLULOSE 500 MG PO SCH (09:00)
[2023-05-25] MEDS: ASPIRIN EC 81 MG TAB PO SCH (09:25)
[2023-05-25] MEDS: FERROUS SULFATE 325 MG TAB PO SCH (09:25)
[2023-05-25] MEDS: VALSARTAN 160 MG TAB PO SCH (09:25)
[2023-05-25] MEDS: DOCUSATE NA 100 MG CAP PO SCH (09:25)
[2023-05-25] MEDS: AMOX/K CLAV 500 MG TAB PO SCH ×2 (09:25→21:16)
[2023-05-25] MEDS: FUROSEMIDE 40 MG/4 ML VIAL IV SCH ×2 (09:26→21:16)
[2023-05-25] MEDS: HYDRALAZINE HCL 25 MG TABLET PO SCH ×2 (09:26→21:16)
[2023-05-25] MEDS: LEVOTHYROXINE SOD 0.075 MG TAB PO SCH (09:26)
[2023-05-25] MEDS: AMIODARONE HCL 200 MG TAB PO SCH (09:29)
--- NOTE | 2023-05-25 10:13 | RAD REPORT ---
EXAM DESCRIPTION: RADChest Single View05/25/2023 8:57 am CLINICAL HISTORY: CHF COMPARISON: Chest Single View dated 05/21/2023; Chest Single View dated 09/06/2022; Chest Pa And Lat (2 Views) dated 09/12/2019; Chest Pa And Lat (2 Views) dated 02/23/2019 TECHNIQUE: Portable AP view of the chest. FINDINGS: Stable central interstitial prominence. Worsening medial right basal airspace opacificatio n. No pneumothorax or effusion. The cardiomediastinal contours are unchanged, with stable cardiomegal y and sequelae of prior CABG. IMPRESSION: Worsening medial right basal airspace opacification, could reflect progressive atelectas is or developing pneumonia.
--- NOTE | 2023-05-25 13:09 | CON ---
Date of Consultation: 05/22/2023 Reason For Consultation: Left knee pain. History Of Present Illness: Corina is an 87-year-old female, who was admitted for left lower extremity pain and swelling as well as shortness of breath. The patient has history of multiple falls over the last month. She has been followed by an orthopedic surgeon in [place]. She had been seen in the emergency room and had x-rays of her left knee, which were negative for any fracture or dislocation. The patient reports pain over the anteromedial aspect of her left knee. She had been immobilized and using a walker. I was asked by Dr. Yadav for further evaluation of the left knee. Review of Systems: As above, otherwise negative. Past Medical History: Includes hypertension, hyperlipidemia, coronary artery disease, diabetes, chronic kidney disease, anemia, and osteoarthritis. Social History: Denies tobacco or alcohol use. Family History: Reviewed and noncontributory. Medications: Per medication reconciliation form. Allergies: TO CODEINE, HYDROCODONE, MORPHINE, PENTOXIFYLLINE, AND PENTAZOCINE. Physical Examination: General: No apparent distress. HEENT: Normocephalic, atraumatic. Neck: Supple. Cardiovascular: Brisk cap refill to all digits. Chest: Nonlabored breathing. Abdomen: Nondistended. Psychiatric: Responsive to exam. Musculoskeletal: Right lower extremity, functional range of motion without pain. No gross deformities. No obvious dislocations. Bilateral upper extremities, functional range of motion without pain. No gross deformities or dislocations. Left lower extremity, some ecchymosis over the anterior knee. No significant erythema noted. Some tenderness over the medial joint line. Stable to varus and valgus stresses. Pain with valgus stress. X-rays: X-rays of the left knee were reviewed, which were negative for any fracture or dislocation. Some osteoarthritis changes noted. Assessment And Plan: Corina is an 87-year-old female with left knee sprain and anterior knee contusion. I discussed with the patient at length diagnosis as well as treatment plan. At this point, no surgical intervention is indicated. At this time, there are no signs of any significant knee effusion or need for aspiration at this time. The patient has range of motion of the knee with minimal pain. The patient has an MRI pending and we will follow up with the results of the MRI. The patient may be weightbearing as tolerated. The patient may follow up with her orthopedic surgeon after discharge. CV/MODL Voice ID: [id number] Report ID: [id number] MTDD
--- NOTE | 2023-05-25 13:15 | EKG ---
Test Date: 2023-05-21 Test Time: 18:48:46 Electronic Gaming Device Supervisor: Angelica FALL MEASUREMENT RESULTS: Intervals: Rate: 59 MN: 158 QRSD: 130 QT: 506 QTc: 500 George [place]: P: MN: 158 QRS: -85 T: -57 INTERPRETIVE STATEMENTS: Sinus bradycardia Indeterminate axis Right bundle branch block Abnormal ECG Compared to ECG 09/06/2022 14:41:24 Indeterminate axis now present Sinus rhythm no longer present Sinus arrhythmia no longer present Electronically Signed On 05-25-23 13:12:01 CDT by George Hernández
--- NOTE | 2023-05-25 13:15 | EKG ---
Test Date: 2023-05-21 Test Time: 19:12:14 Bolt Sawyer: Angelica FALL MEASUREMENT RESULTS: Intervals: Rate: 64 DC: 194 QRSD: 136 QT: 440 QTc: 453 Luke: P: 37 DC: 194 QRS: 261 T: 229 INTERPRETIVE STATEMENTS: Normal sinus rhythm Right bundle branch block T wave abnormality, consider inferolateral ischemia Abnormal ECG Compared to ECG 05/21/2023 18:48:46 T-wave abnormality now present Possible ischemia now present Sinus bradycardia no longer present Indeterminate axis no longer present Electronically Signed On 05-25-23 13:11:54 CDT by George Hernández
[2023-05-25] MEDS: ACETAMINOPHEN 500 MG TAB PO PRN (17:41)
[2023-05-25] MEDS: MELATONIN 5 MG TABLET PO SCH (21:17)
[2023-05-25] MEDS: DOXAZOSIN 2 MG TAB PO SCH (21:17)
[2023-05-26] MEDS: ACETAMINOPHEN 500 MG TAB PO PRN (00:06)
--- NOTE | 2023-05-26 02:06 | PN ---
Date of Progress Note: 05/25/2023 Subjective: The patient was seen this morning for followup. She was lying in bed. She was on oxyge n nasal cannula this morning when I saw her. She reported that last night she was having some shortn ess of breath, so nurse put her back on oxygen. I have reviewed her oxygen saturation and the lowest oxygen saturation overnight was 92% to 93% documented in the chart. Objective: Vital Signs: Reviewed. HEENT: Unremarkable. Lungs: Clear to auscultation. No wheezing. No rales. Heart: Sounds normal. Abdomen: Soft. Bowel sounds normal. No guarding, rigidity, tenderness, distention. Extremity: Trace leg edema. Overall significantly better. Left knee has bruising present, but over all that is better and left knee swelling is better as well compared to before. Laboratory Data: This morning sodium 138, potassium 4, chloride 105, bicarb 29, BUN 35, creatinine 1 .12, glucose 122. Impression: 1.Congestive heart failure, chronic, diastolic, with acute exacerbation. 2.Hypertension. 3.Type 2 diabetes mellitus. 4.Chronic kidney disease, stage IIIA. 5.Coronary artery disease. 6.Cellulitis, left knee. 7.Generalized weakness. 8.Debility. Plan: The patient has not been able to ambulate. She requires total assistance to get out of bed to go to the bathroom and she was living at [facility] and I have requested social service to communicate with her regarding [facility] facility placement and we will follow up on the patient tomorrow. Chest x-ray was ordered today. We will look at that. Continue current antib iotics which is Augmentin and continue current diuretic therapy. Possible discharge in next 1 or 2 d ays depending on her condition and arrangements for discharge. WINDY/MODL Voice ID: [id number] Report ID: [id number]
[2023-05-26] MEDS: ALBUTEROL 2.5 MG/3 ML NEB SOL NEB SCH ×3 (08:05→19:20)
[2023-05-26] MEDS: Dapagliflozin Propanediol [Farxiga] 10 MG Tablet PO SCH (08:54)
[2023-05-26] MEDS: GABAPENTIN 100 MG CAP PO SCH ×2 (08:54→22:05)
[2023-05-26] MEDS: DOCUSATE NA 100 MG CAP PO SCH (08:55)
[2023-05-26] MEDS: AMIODARONE HCL 200 MG TAB PO SCH (08:55)
[2023-05-26] MEDS: LEVOTHYROXINE SOD 0.075 MG TAB PO SCH (08:55)
[2023-05-26] MEDS: HYDRALAZINE HCL 25 MG TABLET PO SCH ×2 (08:55→22:06)
[2023-05-26] MEDS: FERROUS SULFATE 325 MG TAB PO SCH (08:55)
[2023-05-26] MEDS: AMOX/K CLAV 500 MG TAB PO SCH ×2 (08:55→22:05)
[2023-05-26] MEDS: ASPIRIN EC 81 MG TAB PO SCH (08:56)
[2023-05-26] MEDS: VALSARTAN 160 MG TAB PO SCH (08:56)
[2023-05-26] MEDS: METHYLCELLULOSE 500 MG PO SCH (08:57)
[2023-05-26] MEDS: FUROSEMIDE 40 MG TABLET PO SCH ×2 (09:00→17:18)
[2023-05-26] MEDS: MELATONIN 5 MG TABLET PO SCH (22:05)
[2023-05-26] MEDS: DOXAZOSIN 2 MG TAB PO SCH (22:06)
[2023-05-27 03:47] LABS: Absolute Lymphocytes (CBC) 1.1 K/uL (0.7-4.9); Hematocrit 26.5 % (36.0-45.0); MCV 79.7 fL (80-100); MPV 7.9 fL (7.6-11.3); Platelets 269 thou/uL (152-406); RBC Red Blood Cell Count 3.33 M/uL (3.86-4.86)
[2023-05-27 03:54] LABS: Magnesium 2.2 mg/dL (1.6-2.4)
[2023-05-27] MEDS: ALBUTEROL 2.5 MG/3 ML NEB SOL NEB SCH ×3 (07:48→20:55)
--- NOTE | 2023-05-27 08:00 | PN ---
Date of Progress Note: 05/26/2023 Subjective: The patient was seen this morning for followup. She denies any shortness of breath. Le g swelling has improved. No other complaints. She still has significant generalized weakness and re quires total assistance for her any attempt to get out of the bed. She is also complaining of pain i n her both feet on the bottom aspect of her feet, which she describes every time she stands or walks as if she is walking on broken pieces of glass. She has some tingling, numbness in her feet. Objective: Vital Signs: Reviewed. HEENT: Unremarkable. Lungs: Clear to auscultation. Heart: Sounds normal. Abdomen: Soft. Bowel sounds normal. No guarding, rigidity, tenderness, distention. Extremities: No leg edema. Laboratory Data: There were no new labs today. Impression: 1.Congestive heart failure, chronic, diastolic, with acute exacerbation. 2.Chronic kidney disease, stage 3A. 3.Hypertension. 4.Type 2 diabetes mellitus with diabetic neuropathy. 5.Anemia. Plan: We will go ahead and start gabapentin and I explained to the patient regarding her feet sensat ion is due to diabetic neuropathy. We will see how she responds to gabapentin. Physical Therapy to continue to work with her. Social Service is assisting her with correction facility placement a nd she understands the importance of going into such facility considering level of help that she requ ires. We will stop IV Lasix, start her on oral furosemide 40 mg twice a day. We will repeat blood w ork tomorrow morning. Possible discharge as soon as social Service is able to make these arrangement s for her to go to correction facility. Her discharge medications and instructions will be as b jaow; 1.Gabapentin 100 mg, take 1 capsule by mouth 3 times a day. 2.Furosemide 40 mg, take 1 tablet by mouth daily in the morning. 3.Amiodarone 200 mg, take 1 tablet by mouth daily. 4.PreserVision 1 capsule by mouth 2 times a day. 5.Aspirin 81 mg, take 1 tablet by mouth daily with food. 6.Farxiga 10 mg, take 1 tablet by mouth daily in the morning with breakfast. 7.Doxazosin 2 mg and the patient to take 1 tablet by mouth daily at bedtime. 8.Hydralazine 50 mg, take half a tablet by mouth 2 times a day. 9.Iron 65 mg, take 1 tablet by mouth daily. 10.Levothyroxine 150 mcg, take 1 tablet by mouth daily. 11.Melatonin 5 mg, take 1 tablet by mouth daily at bedtime. 12.Nitroglycerin 0.4 mg, take 1 tablet by mouth sublingually every 5 minutes x3 as needed for chest pain. 13.Olmesartan 40 mg, take 1 tablet by mouth daily in the morning. 14.Rosuvastatin 5 mg, take 1 tablet by mouth every other day. 15.Augmentin 500 mg, take 1 tablet by mouth 2 times a day for 1 week. 16.Fall precautions. 17.Consult Physical Therapy and Occupational Therapy. 18.Diet will be 2 g sodium, 1800-calorie ADA diet. 19.Tylenol 500 mg 4 times a day as needed for pain. 20.Follow up with slot service specialist, Dr. Acosta in 2-3 weeks for meniscus tear of left knee and the patient to take her MRI films with her to Dr. Acosta at the time of appointment. WINDY/MODL Voice ID: [id number] Report ID: [id number]
[2023-05-27] MEDS: LEVOTHYROXINE SOD 0.075 MG TAB PO SCH (08:45)
[2023-05-27] MEDS: DOCUSATE NA 100 MG CAP PO SCH (08:45)
[2023-05-27] MEDS: FERROUS SULFATE 325 MG TAB PO SCH (08:45)
[2023-05-27] MEDS: GABAPENTIN 100 MG CAP PO SCH ×2 (08:45→20:53)
[2023-05-27] MEDS: ASPIRIN EC 81 MG TAB PO SCH (08:46)
[2023-05-27] MEDS: AMOX/K CLAV 500 MG TAB PO SCH ×2 (08:46→20:52)
[2023-05-27] MEDS: FUROSEMIDE 40 MG TABLET PO SCH (08:46)
[2023-05-27] MEDS: Dapagliflozin Propanediol [Farxiga] 10 MG Tablet PO SCH (08:48)
[2023-05-27] MEDS: AMIODARONE HCL 200 MG TAB PO SCH (08:49)
[2023-05-27] MEDS: HYDRALAZINE HCL 25 MG TABLET PO SCH ×2 (08:49→20:53)
[2023-05-27] MEDS: VALSARTAN 160 MG TAB PO SCH (08:49)
[2023-05-27] MEDS: METHYLCELLULOSE 500 MG PO SCH (08:49)
--- NOTE | 2023-05-27 20:45 | PN ---
Date of Progress Note: 05/27/2023 Subjective: Patient was seen this morning for followup. No new complaints or problems reported by t he patient. Lying in bed, not in any distress. Objective: Vital Signs: Reviewed. HEENT: Unremarkable. Lungs: Clear to auscultation. Heart: Sounds normal. Abdomen: Soft. Bowel sounds normal. No guarding, rigidity, tenderness, distention. Extremities: No leg edema. Laboratory Data: White count 6.6, hemoglobin 8.4, platelets 261. Sodium 135, potassium 4, chloride 103, bicarb 27, BUN 52, creatinine 1.67, glucose 111. Impression: 1.Cellulitis, left leg. 2.Chronic diastolic heart failure, with acute exacerbation. 3.Hypertension. 4.Type 2 diabetes mellitus. 5.Anemia. 6.Generalized weakness. 7.Debility. Plan: Patient reports that yesterday she was able to stand at the bedside with physical therapy and walk in [address] with assistance. She has not ambulated outside her room. After reviewing this jammie nuñez's blood work results, I have reduced her furosemide dose from 40 mg 2 times a day to once a day. We will continue other current medical management. Social Service is working on placement in half-way facility. Soon as that is arranged, we will be able to discharge her. WINDY/MODL Voice ID: [id number] Report ID: [id number]
[2023-05-27] MEDS: MELATONIN 5 MG TABLET PO SCH (20:53)
[2023-05-27] MEDS: DOXAZOSIN 2 MG TAB PO SCH (20:53)
[2023-05-28 03:51] LABS: Magnesium 2.7 mg/dL (1.6-2.4); Potassium 4.3 mEq/L (3.5-5.1)
[2023-05-28] MEDS: HYDRALAZINE HCL 25 MG TABLET PO SCH ×2 (08:02→21:34)
[2023-05-28] MEDS: GABAPENTIN 100 MG CAP PO SCH ×2 (08:02→21:34)
[2023-05-28] MEDS: LEVOTHYROXINE SOD 0.075 MG TAB PO SCH (08:02)
[2023-05-28] MEDS: FERROUS SULFATE 325 MG TAB PO SCH (08:02)
[2023-05-28] MEDS: FUROSEMIDE 40 MG TABLET PO SCH (08:02)
[2023-05-28] MEDS: AMIODARONE HCL 200 MG TAB PO SCH (08:02)
[2023-05-28] MEDS: Dapagliflozin Propanediol [Farxiga] 10 MG Tablet PO SCH (08:02)
[2023-05-28] MEDS: AMOX/K CLAV 500 MG TAB PO SCH ×2 (08:02→21:34)
[2023-05-28] MEDS: DOCUSATE NA 100 MG CAP PO SCH (08:02)
[2023-05-28] MEDS: VALSARTAN 160 MG TAB PO SCH (08:03)
[2023-05-28] MEDS: ASPIRIN EC 81 MG TAB PO SCH (08:03)
[2023-05-28] MEDS: METHYLCELLULOSE 500 MG PO SCH (08:03)
[2023-05-28] MEDS: ALBUTEROL 2.5 MG/3 ML NEB SOL NEB SCH ×3 (08:50→20:25)
[2023-05-28] MEDS: DOXAZOSIN 2 MG TAB PO SCH (21:33)
[2023-05-28] MEDS: MELATONIN 5 MG TABLET PO SCH (21:35)
[2023-05-29] MEDS: ALBUTEROL 2.5 MG/3 ML NEB SOL NEB SCH ×3 (08:00→20:10)
[2023-05-29] MEDS: METHYLCELLULOSE 500 MG PO SCH (09:00)
[2023-05-29] MEDS: Dapagliflozin Propanediol [Farxiga] 10 MG Tablet PO SCH (09:18)
[2023-05-29] MEDS: FERROUS SULFATE 325 MG TAB PO SCH (09:19)
[2023-05-29] MEDS: AMIODARONE HCL 200 MG TAB PO SCH (09:19)
[2023-05-29] MEDS: VALSARTAN 160 MG TAB PO SCH (09:19)
[2023-05-29] MEDS: HYDRALAZINE HCL 25 MG TABLET PO SCH ×2 (09:19→19:50)
[2023-05-29] MEDS: LEVOTHYROXINE SOD 0.075 MG TAB PO SCH (09:20)
[2023-05-29] MEDS: FUROSEMIDE 40 MG TABLET PO SCH (09:20)
[2023-05-29] MEDS: DOCUSATE NA 100 MG CAP PO SCH (09:20)
[2023-05-29] MEDS: ASPIRIN EC 81 MG TAB PO SCH (09:20)
[2023-05-29] MEDS: GABAPENTIN 100 MG CAP PO SCH ×2 (09:20→19:49)
[2023-05-29] MEDS: AMOX/K CLAV 500 MG TAB PO SCH ×2 (09:20→19:59)
--- NOTE | 2023-05-29 12:07 | PN ---
Date of Progress Note: 05/28/2023 Subjective: The patient was seen this morning for followup. No new complaints or problems reported by the patient. Denies any new complaints. Objective: Vital signs: Reviewed. Remains afebrile. HEENT: Unremarkable. Lungs: Clear to auscultation. Heart: Sounds normal. Abdomen: Soft. Bowel sounds normal. No guarding, rigidity, tenderness, distention. Extremities: No leg edema. Left anterior knee area of contusion is smaller compared to before. No tenderness. Impression: 1.Generalized weakness. 2.Debility. 3.Cellulitis, left knee. 4.Hypertension. 5.Type 2 diabetes mellitus. 6.Congestive heart failure, chronic, diastolic, with acute exacerbation. Plan: We will go ahead and continue furosemide 40 mg daily. Today's lab results reviewed. Continue current diabetes management. We will go ahead and continue to work with physical therapy and Social Service is working on making arrangements for patient to go to group home facility. As soon as that is arranged, we will be able to discharge her. Medically she is stable for discharge. WINDY/MODL Voice ID: [id number] Report ID: [id number]
[2023-05-29] MEDS: MELATONIN 5 MG TABLET PO SCH (19:49)
[2023-05-29] MEDS: DOXAZOSIN 2 MG TAB PO SCH (19:50)
--- NOTE | 2023-05-29 22:06 | DS ---
Date of Discharge: 05/29/2023 Disposition: Patient will be discharged to go to nursing home facility. Physical Examination: HEENT: Unremarkable. Lungs: Clear to auscultation. Heart: Sounds normal. Abdomen: Soft. Bowel sounds normal. No guarding, rigidity, tenderness, distention. Extremities: No leg edema. Left anterior knee has area of contusion, which is overall much better t lan before. No tenderness. Laboratory Data: Last chemistry from yesterday, sodium 138, potassium 4.3, chloride 106, bicarb 29, BUN 58, creatinine 1.52, glucose 131. Magnesium 2.7. On 05/27/2023, BUN was 52, creatinine 1.67. H er last CBC from 05/27/2023, white count 6.6, hemoglobin 8.4, platelets 269. Upon admission, white c ount 8, hemoglobin 8.1, platelets 279 and on 05/23/2023, hemoglobin dropped down to 7.1, and she was given 1 unit of PRBC blood transfusion at that time. Initial chemistry upon admission sodium 140, po tassium 4.9, chloride 112, bicarb 24, BUN 29, creatinine 1.10, glucose 126. Liver function tests unr emarkable. TSH 6.8. Echocardiogram shows ejection fraction of 60%, moderate diastolic dysfunction, severe pulmonary hypertension, moderate mitral regurgitation, and moderate tricuspid regurgitation. Hospital Course: This is an 87-year-old very pleasant female patient admitted to the hospital with c omplaints of weight gain, leg swelling, and shortness of breath. Please see dictated H and P for mor e information. Patient had gained almost 20 pounds in last 2 months along with leg swelling and wors ening of shortness of breath. She was admitted to the hospital with this congestive heart failure. She has had multiple falls, but recently had 2 falls and with 1 of the fall, she actually had large a angelina of contusion over left anterior knee and she is having extreme difficulty with ambulation. After she was admitted to the hospital, we started her on diuretic therapy. Intake and output, daily weig ht was monitored. We monitored her electrolytes closely. Initially, she received IV Lasix and subse quently we lowered it to oral furosemide as of few days ago and she was getting oral furosemide 40 mg twice a day, which I even reduced it to 40 mg once a day now considering renal insufficiency problem . Patient has significant generalized weakness and debility and she has not been able to ambulate. The best she has done with physical therapy is to stand at the bedside and walk at the bedside in 1 p osition with assistance. It was recommended to her to go to nursing home facility instead of retu rning back to her assisted care facility and patient and family were agreeable, so Social Service was consulted and once all arrangements completed, patient was discharged to go to nursing home [facility]. There were some changes of cellulitis along with contusion of the left anterior knee area and o ral Augmentin was started along with improvement in the leg swelling and antibiotic. Overall, she fe els a lot better with her left knee. We did get MRI of the left knee and that has shown meniscus tea r and patient has seen Dr. Acosta on outpatient basis in [place] and she was encouraged to follow up with him in 2-3 weeks with MRI films. While here in the hospital, we did obtain a consultation from Dr. Alcantara, Orthopedic Surgery. Final Diagnoses: 1.Chronic diastolic heart failure, with acute exacerbation. 2.Chronic kidney disease, stage 3A. 3.Anemia, chronic, unspecified. 4.Hypertension. 5.Hyperlipidemia. 6.Coronary artery disease. 7.Osteoarthritis, multiple sites. 8.Type 2 diabetes mellitus. 9.Left knee medial meniscus tear. 10.Cellulitis, left knee. Discharge Medications And Instructions: Please see discharge order for details. WINDY/MODL Voice ID: [id number] Report ID: [id number]
[2023-05-30 06:04] VITALS: O2SAT 96
[2023-05-30 07:33] LABS: Absolute Lymphocytes (CBC) 1.1 K/uL (0.7-4.9); Hematocrit 28.2 % (36.0-45.0); Lymphocytes % 18.8 % (15.3-44.8); MCV 79.3 fL (80-100); MPV 7.7 fL (7.6-11.3); Platelets 255 thou/uL (152-406); RBC Red Blood Cell Count 3.56 M/uL (3.86-4.86)
[2023-05-30 07:36] LABS: Magnesium 2.6 mg/dL (1.6-2.4); Potassium 4.6 mEq/L (3.5-5.1)
[2023-05-30] MEDS: ALBUTEROL 2.5 MG/3 ML NEB SOL NEB SCH ×3 (07:40→20:00)
[2023-05-30] MEDS: METHYLCELLULOSE 500 MG PO SCH (09:00)
[2023-05-30] MEDS: AMOX/K CLAV 500 MG TAB PO SCH ×2 (09:49→22:33)
[2023-05-30] MEDS: Dapagliflozin Propanediol [Farxiga] 10 MG Tablet PO SCH (09:49)
[2023-05-30] MEDS: LEVOTHYROXINE SOD 0.075 MG TAB PO SCH (09:50)
[2023-05-30] MEDS: HYDRALAZINE HCL 25 MG TABLET PO SCH ×2 (09:50→22:33)
[2023-05-30] MEDS: VALSARTAN 160 MG TAB PO SCH (09:50)
[2023-05-30] MEDS: ASPIRIN EC 81 MG TAB PO SCH (09:50)
[2023-05-30] MEDS: FERROUS SULFATE 325 MG TAB PO SCH (09:50)
[2023-05-30] MEDS: AMIODARONE HCL 200 MG TAB PO SCH (09:51)
[2023-05-30] MEDS: DOCUSATE NA 100 MG CAP PO SCH (09:51)
[2023-05-30] MEDS: GABAPENTIN 100 MG CAP PO SCH ×2 (09:51→22:33)
[2023-05-30] MEDS: FUROSEMIDE 40 MG TABLET PO SCH (09:51)
[2023-05-30] MEDS: MELATONIN 5 MG TABLET PO SCH (22:34)
[2023-05-30] MEDS: DOXAZOSIN 2 MG TAB PO SCH (22:35)
[2023-05-31] MEDS: ALBUTEROL 2.5 MG/3 ML NEB SOL NEB SCH ×3 (07:40→19:35)
[2023-05-31] MEDS: METHYLCELLULOSE 500 MG PO SCH (08:26)
[2023-05-31] MEDS: Dapagliflozin Propanediol [Farxiga] 10 MG Tablet PO SCH (09:22)
[2023-05-31] MEDS: VALSARTAN 160 MG TAB PO SCH (09:23)
[2023-05-31] MEDS: GABAPENTIN 100 MG CAP PO SCH ×2 (09:23→21:19)
[2023-05-31] MEDS: LEVOTHYROXINE SOD 0.075 MG TAB PO SCH (09:24)
[2023-05-31] MEDS: AMIODARONE HCL 200 MG TAB PO SCH ×2 (09:24→09:37)
[2023-05-31] MEDS: HYDRALAZINE HCL 25 MG TABLET PO SCH ×2 (09:24→21:19)
[2023-05-31] MEDS: FERROUS SULFATE 325 MG TAB PO SCH (09:24)
[2023-05-31] MEDS: DOCUSATE NA 100 MG CAP PO SCH (09:24)
[2023-05-31] MEDS: AMOX/K CLAV 500 MG TAB PO SCH ×2 (09:25→21:19)
[2023-05-31] MEDS: ASPIRIN EC 81 MG TAB PO SCH (09:25)
[2023-05-31] MEDS: FUROSEMIDE 40 MG TABLET PO SCH (09:25)
--- NOTE | 2023-05-31 14:15 | PN ---
Date of Progress Note: 05/29/2023 Subjective: Patient was seen this morning for followup. She was lying in bed, not in distress. No new complaints or problems reported. Patient lying in bed not in distress. Denies any chest pain. No shortness of breath. Objective: Vital Signs: Reviewed. HEENT: Unremarkable. Lungs: Clear to auscultation. Heart: Sounds normal. Abdomen: Soft. Bowel sounds normal. No guarding, rigidity, tenderness, or distention. Extremities: No leg edema. Left knee has area of contusion, which is actually improving over period of this hospitalization. Laboratory Data: No new labs today. Yesterday's lab results reviewed. Impression: 1.Congestive heart failure, chronic, diastolic, with acute exacerbation. 2.Left leg cellulitis. 3.Hypertension. 4.Type 2 diabetes mellitus. 5.Coronary artery disease. 6.Generalized weakness. 7.Debility. Plan: Plan was to discharge her to go to long term facility, but unfortunately we are still wa iting on insurance approval for patient to go to such facility. So, patient will not be able to go t o facility today and unfortunately starting tomorrow over the weekend, we will not be able to get any approval from insurance company, so patient will have to stay in the hospital over the weekend until Thursday as it appears that will be the first likely day that we might get approval from insurance company. I will see her tomorrow for followup. We will repeat blood wor k tomorrow morning. WINDY/MODL Voice ID: [id number] Report ID: [id number]
--- NOTE | 2023-05-31 14:21 | PN ---
Date of Progress Note: 05/30/2023 Subjective: The patient was seen today via tele visit for followup. She was lying in bed, not in an y distress. Denies any complaints. No shortness of breath. No nausea, vomiting. Laboratory Data: White count 5.9, hemoglobin 9.2, platelets 255. Sodium 136, potassium 4.6, chlorid e 105, bicarb 27, BUN 49, creatinine 1.31, glucose 103, magnesium 2.6. Impression: 1.Congestive heart failure, chronic, diastolic, with acute exacerbation. 2.Chronic kidney disease, stage 3B. 3.Hypertension. 4.Hyperlipidemia. 5.Coronary artery disease. 6.Type 2 diabetes mellitus. 7.Generalized weakness. 8.Debility. 9.Anemia. Plan: We will go ahead and continue current medications, continue current diuretic therapy which is furosemide 40 mg daily, continue current antihypertensive and diabetes management. We will continue oral antibiotic therapy, Augmentin for left leg cellulitis, and I will see her tomorrow for followup. WINDY/MODL Voice ID: [id number] Report ID: [id number]
[2023-05-31] MEDS: DOXAZOSIN 2 MG TAB PO SCH (21:00)
[2023-05-31] MEDS: MELATONIN 5 MG TABLET PO SCH (21:19)
[2023-06-01] MEDS: ACETAMINOPHEN 500 MG TAB PO PRN (01:23)
[2023-06-01] MEDS: ALBUTEROL 2.5 MG/3 ML NEB SOL NEB SCH ×2 (08:00→13:51)
--- NOTE | 2023-06-01 08:27 | PN ---
Date of Progress Note: 05/31/2023 Subjective: The patient was seen this morning for followup. No new complaints or problems reported by the patient. She was lying in bed, not in any distress. Objective: Vital Signs: Reviewed. HEENT: Unremarkable. Lungs: Clear to auscultation. Heart: Sounds normal. Abdomen: Soft. Bowel sounds normal. No guarding, rigidity, tenderness, distention. Extremities: No leg edema. Left anterior knee contusion is much better. Still has some area of con tusion, but overall much better. Impression: 1.Cellulitis, left knee. 2.Hypertension. 3.Congestive heart failure, chronic, diastolic, with acute exacerbation. 4.Coronary artery disease. 5.Hyperlipidemia. 6.Type 2 diabetes mellitus. Plan: We will continue current oral antibiotic which is Augmentin. Continue furosemide daily. Cont inue current diabetes management and blood pressure medication. Possible discharge tomorrow to go to [facility] facility once we get approval from insurance company. WINDY/MODL Voice ID: [id number] Report ID: [id number]
[2023-06-01] MEDS: METHYLCELLULOSE 500 MG PO SCH (09:00)
[2023-06-01] MEDS: VALSARTAN 160 MG TAB PO SCH (09:07)
[2023-06-01] MEDS: FUROSEMIDE 40 MG TABLET PO SCH (09:07)
[2023-06-01] MEDS: Dapagliflozin Propanediol [Farxiga] 10 MG Tablet PO SCH (09:07)
[2023-06-01] MEDS: FERROUS SULFATE 325 MG TAB PO SCH (09:08)
[2023-06-01] MEDS: ASPIRIN EC 81 MG TAB PO SCH (09:08)
[2023-06-01] MEDS: AMIODARONE HCL 200 MG TAB PO SCH (09:08)
[2023-06-01] MEDS: DOCUSATE NA 100 MG CAP PO SCH (09:08)
[2023-06-01] MEDS: GABAPENTIN 100 MG CAP PO SCH (09:08)
[2023-06-01] MEDS: AMOX/K CLAV 500 MG TAB PO SCH (09:08)
[2023-06-01] MEDS: LEVOTHYROXINE SOD 0.075 MG TAB PO SCH (09:09)
[2023-06-01] MEDS: HYDRALAZINE HCL 25 MG TABLET PO SCH (09:09)
[2023-06-01 09:42] VITALS: TEMP 97.2
[2023-06-01 16:57] VITALS: BP 153/65
--- NOTE | 2023-06-02 04:08 | DS ---
Date of Discharge: 06/01/2023 Disposition: The patient was discharged to [facility]. WINDY/MODL Voice ID: [id number] Report ID: [id number]
== END 2023-06-01 18:40 | DRG 291 ==
LOC: 2ND 15:22
PROVIDERS: ADMIT Internal Medicine; ATTEND Internal Medicine
PROC: 30233N1 Transfusion of Nonautologous Red Blood Cells into Peripheral Vein, Percutaneous Approach (ICD-10-PCS; principal; 2023-05-23)
DX: I13.0 Hypertensive heart and chronic kidney disease with heart failure and stage 1 through stage 4 chronic kidney disease, or unspecified chronic kidney disease (principal); I50.33 Acute on chronic diastolic (congestive) heart failure; L03.116 Cellulitis of left lower limb; N18.32 Chronic kidney disease, stage 3b; E11.22 Type 2 diabetes mellitus with diabetic chronic kidney disease; E11.40 Type 2 diabetes mellitus with diabetic neuropathy, unspecified; D63.1 Anemia in chronic kidney disease; E78.2 Mixed hyperlipidemia; M19.09 Primary osteoarthritis, other specified site; E03.9 Hypothyroidism, unspecified; I25.10 Atherosclerotic heart disease of native coronary artery without angina pectoris; S83.207A Unspecified tear of unspecified meniscus, current injury, left knee, initial encounter; S80.02XA Contusion of left knee, initial encounter; S83.92XA Sprain of unspecified site of left knee, initial encounter; R29.6 Repeated falls; Z95.1 Presence of aortocoronary bypass graft; Z88.5 Allergy status to narcotic agent; Z91.81 History of falling; Z98.51 Tubal ligation status; Z90.710 Acquired absence of both cervix and uterus; Z79.890 Hormone replacement therapy
CPT/HCPCS: 36415; 36430; 71045; 80048; 80053; 82947; 83735; 84439; 84443; 85014; 85018; 85025; 86850; 86900; 86901; 86920; 93005; 93306; 94010; 94760; 97110; 97112; 97116; 97162; 97530; J1650; J1940; J7050; J7613; P9016

== ENCOUNTER → 2023-12-02 | Emergency (ER) | payer OTHER ==
[~2023-12-02] MED LIST: IBUPROFEN 400 MG TAB ONE; ONDANSETRON 4 MG (ODT) TAB ONE; TRAMADOL HCL 50 MG TAB ONE; methocarbamoL 750 MG TAB ONE
--- NOTE | 2023-12-02 07:34 | RAD REPORT ---
EXAM DESCRIPTION: CT - Head C Spine Cap Wo Con - 12/02/2023 7:05 am CLINICAL HISTORY: Head and neck injury with chest and abdominal pain status post fall TECHNIQUE: Computed axial tomography of head, neck, chest, abdomen and pelvis obtained. IV and oral contrast not requested. Coronal and sagittal reconstruction performed. All CT scans are performed using dose optimization technique as appropriate and may include automated exposure control or mA/KV adjustment according to patient size. COMPARISON: 2014 MRI brain FINDINGS: An intracranial bleed is not seen. Small low-density area in left cerebellum may represent an old inf arction. Moderate dilatation of the ventricles without significant change from 2014. Fluid within the sinuses/mastoids is not seen. A cervical fracture is not seen. No dislocation is noted. The evaluation of mediastinum, ashley, vessels, solid organs and bowel are limited secondary to the lac k of contrast administration. A mediastinal hematoma is not noted. A pleural effusion is not seen. A lung contusion is not present. The liver,spleen, pancreas, adrenals,kidneys and bladder do not demonstrate an acute traumatic injury 9 x 3 centimeter fluid collection with increased density within the posterior left subcutaneous tissu e at the level of the iliac crest probably hematoma IMPRESSION: No acute intracranial abnormality is seen. . Mild dilatation ventricles unchanged from 2014 may be se condary to normal pressure hydrocephalus or atrophy and should be correlated clinically A cervical fracture is not visualized. If the patient continues to have symptoms to suggest intracran ial/spinal cord pathology MRI be recommended No acute traumatic abnormality involving the chest, abdomen 9 x 3 centimeter fluid collection with increased density within the posterior left subcutaneous tissu e at the level of the iliac crest probably hematoma
--- NOTE | 2023-12-02 07:50 | EDPHYS ---
Physician Documentation [facility] Name: Corina Hernandez Age: 88 yrs Sex: Female : 1935 Arrival Date: 12/02/2023 Time: 05:42 Bed 8 Private MD: ED Physician Toribio Galo HPI: 12/02 06:30 This 88 yrs old Female presents to ER via EMS with complaints of fall . sp4 06:40 Fall, with back pain . sp4 06:49 Very pleasant 88-year-old female presents with complaint of lower back pain after a sp4 fall on 11/26/2023. Patient has history of congestive heart failure, hypertensive disorder, hypothyroidism. Lower back pain has intensified today prompting arrival to the hospital. . Historical: - Allergies: 06:06 Codeine; as9 06:06 Morphine; as9 - PMHx: 06:06 Congestive heart failure; Hypertensive disorder; hydroceohalus; Hypothyroidism; as9 - PSHx: 06:06 Coronary artery bypass graft; spinal tap for hydrocephalus; as9 - Immunization history:: Adult Immunizations up to date, Client reports receiving the 2nd dose of the Covid vaccine, Flu vaccine is up to date. - Social history:: Smoking status: Patient denies any tobacco usage or history of. - Family history:: not pertinent. ROS: 06:49 Constitutional: Negative for fever, chills, and weight loss, positive back pain after a sp4 fall.. 06:49 All other systems are negative, Exam: 06:49 Constitutional: This is a well developed, well nourished patient who is awake, alert, sp4 and in no acute distress. Frail elderly female Head/Face: Normocephalic, atraumatic. Eyes: Pupils equal round and reactive to light, extra-ocular motions intact. Lids and lashes normal. Conjunctiva and sclera are not injected. Cornea within normal limits. Periorbital areas with no swelling, redness, or edema. ENT: Nares patent. No nasal discharge, no septal abnormalities noted. Tympanic membranes are normal and external auditory canals are clear. Oropharynx with no redness, swelling, or masses, exudates, or evidence of obstruction, uvula midline. Mucous membranes moist. Neck: Trachea midline, no thyromegaly or masses palpated, and no cervical lymphadenopathy. Supple, full range of motion without nuchal rigidity, or vertebral point tenderness. Chest/axilla: Normal chest wall appearance and motion. Nontender with no deformity. No lesions are appreciated. Cardiovascular: Regular rate and rhythm with a normal S1 and S2. No gallops, murmurs, or rubs. Normal PMI, no JVD. No pulse deficits. Respiratory: Lungs have equal breath sounds bilaterally, clear to auscultation and percussion. No rales, rhonchi or wheezes noted. No increased work of breathing, no retractions or nasal flaring. Abdomen/GI: Soft, with normal bowel sounds. No distension or tympany. No guarding or rebound. No evidence of tenderness throughout. Back: Positive posterior lower back tenderness without deformity Skin: Warm, dry with normal turgor. Normal color with no rashes, no lesions, and no evidence of cellulitis. MS/ Extremity: Pulses equal, no cyanosis. Neurovascular intact. Full, normal range of motion. Neuro: Awake and alert, GCS 15, oriented to person, place, time, and situation. Cranial nerves II-XII grossly intact. Motor strength 5/5 in all extremities. Sensory grossly intact. Psych: Awake, alert, with orientation to person, place and time. Behavior, mood, and affect are within normal limits Vital Signs: 05:44 BP 174 / 48; Pulse 62; Resp 18; Pulse Ox 93% on R/A; as9 05:57 BP 184 / 44; Pulse 61; Resp 18; Temp 97.7; Pulse Ox 93% on R/A; Weight 67.13 kg; Height as9 5 ft. 2 in. ; 06:00 BP 182 / 51; Pulse 60; Pulse Ox 92% on R/A; as9 06:30 BP 185 / 51; Pulse 60; Resp 18; Pulse Ox 92% on R/A; as9 07:36 BP 162 / 48; Pulse 50; Resp 15; Pulse Ox 86% on R/A; nj1 07:40 Pulse Ox 95% on 2 lpm NC; nj1 05:57 Body Mass Index 27.07 (67.13 kg, 157.48 cm) as9 NIH Stroke Scale Scores: 06:49 NIHSS Score: 0 sp4 Amos Coma Score: 06:49 Eye Response: spontaneous(4). Motor Response: obeys commands(6). Verbal Response: sp4 oriented(5). Total: 15. MDM: 05:51 Patient medically screened. sp4 06:52 Differential Diagnosis altered mental status, sepsis, flu, Fall at the alf sp4 back pain. Data reviewed: vital signs, nurses notes, EMS record, radiologic studies, CT scan. ED course: Patient care will be transferred to Dr. Galo . 06:52 Transition of care: After a detail discussion of the patient's case, care is sp4 transferred to Toribio Galo MD. 07:48 Counseling: I had a detailed discussion with the patient and/or guardian regarding the rn historical points, exam findings, and any diagnostic results supporting the discharge/admit diagnosis, radiology results, the need for outpatient follow up, to return to the emergency department if symptoms worsen or persist or if there are any questions or concerns that arise at home. Response to treatment: the patient's symptoms have mildly improved after treatment, and as a result, I will discharge patient. Special discussion: I discussed with the patient/guardian in detail that at this point there is no indication for admission to the hospital. It is understood, however, that if the symptoms persist or worsen the patient needs to return immediately for re-evaluation. ED course: No acute findings and workup. Imaging negative except for subacute hematoma. Hematoma was exactly where patient is complaining of pain. Patient was little nauseous after tramadol but now has resolved after p.o. Zofran. Family in room. Results explained and questions answered. . 12/02 05:50 Order name: CT Traumagram (Head C Spine CAP wo con); Complete Time: 07:40 lg3 Administered Medications: 06:57 Drug: Ondansetron PO 4 mg PO once Route: PO; as9 06:57 Drug: Methocarbamol PO 750 mg PO once Route: PO; as9 06:58 Drug: Ibuprofen PO 400 mg PO once Route: PO; as9 06:58 Drug: traMADol PO 100 mg PO once Route: PO; as9 Disposition Summary: 12/02/23 07:49 Discharge Ordered Notes: Location: Home rn Problem: new rn Symptoms: have improved rn Condition: Stable rn Diagnosis - Contusion of lower back and pelvis rn Followup: rn - With: Private Physician - When: As needed - Reason: Recheck today's complaints, Re-evaluation by your physician Discharge Instructions: - Discharge Summary Sheet rn - Contusion rn - Fall Prevention in the Home, Adult rn Forms: - Medication Reconciliation Form rn - Thank You Letter rn - Antibiotic furniture packer - Prescription Opioid Use rn - Patient Portal Instructions rn - Leadership Thank You Letter rn NIH Stroke Scale - NIH Stroke Score Date: 12/02/2023 Time: 06:49 Total Score = 0 10. Dysarthria (speech clarity - read or repeat words) - 0(Normal) 11. Extinction and Inattention (visual/tactile/auditory/spatial/personal) - 0(No abnormality) 1a. Level of Consciousness (LOC) - 0(Alert) 1b. Level of Consciousness (LOC) (Month \T\ Age) - 0(Both) 1c. LOC Commands (Open \T\ Closes Eyes/Telegraph Office Route Aide) - 0(Both) 2. Best Gaze (Lateral Gaze Paresis) - 0(Normal) 3. Visual Field Loss - 0(No visual loss) 4. Facial Palsy - 0(Normal) 5a. Left Arm: Motor (10-second hold) - 0(No drift) 5b. Right Arm: Motor (10-second hold) - 0(No drift) 6a. Left Leg: Motor (5-second hold - always test supine) - 0(No drift) 6b. Right Leg: Motor (5-second hold - always test supine) - 0(No drift) 7. Limb Ataxia (finger/nose \T\ heel/villalba - test with eyes open) - 0(Absent) 8. Sensory Loss (pinprick arms/legs/face) - 0(Normal) 9. Best Language: Aphasia (description/naming/reading) - 0(No aphasia) Initials: sp4 Signatures: Dispatcher [employer] Toribio Faith MD MD rn Potepalov, Sergey, MD MD sp4 Fei Ortega RN RN as9 Corrections: (The following items were deleted from the chart) 06:51 06:49 Very pleasant 88-year-old female presents with complaint of lower back sp4 pain after a fall last night. Patient has history of congestive heart failure, hypertensive disorder, hypothyroidism.. sp4
--- NOTE | 2023-12-02 07:50 | ER ---
Nurse's Notes [facility] Name: Corina Hernandez Age: 88 yrs Sex: Female : 1935 Arrival Date: 12/02/2023 Time: 05:42 Bed 8 Private MD: Diagnosis: Contusion of lower back and pelvis Presentation: 12/02 05:57 Chief complaint: EMS states: patient fell on November 26, 2023 on her back, denies LOC. as9 was not seen or treated at that time. Patient is complaining of consistent pain on her back around 8/10 pain scale. Coronavirus screen: At this time, the client does not indicate any symptoms associated with coronavirus-19. Ebola Screen: No symptoms or risks identified at this time. Initial Sepsis Screen: Does the patient meet any 2 criteria? No. Patient's initial sepsis screen is negative. Does the patient have a suspected source of infection? No. Patient's initial sepsis screen is negative. Risk Assessment: Do you want to hurt yourself or someone else? Patient reports no desire to harm self or others. Onset of symptoms was November 26, 2023. Mechanism of Injury: Fall out of chair. 05:57 Method Of Arrival: EMS: [facility] as9 05:57 Acuity: MARLINE 3 as9 Triage Assessment: 06:06 General: Appears in no apparent distress. comfortable, Behavior is calm, cooperative, as9 appropriate for age. Pain: Complains of pain in buttocks and lower back Pain currently is 8 out of 10 on a pain scale. Quality of pain is described as aching. EENT: No signs and/or symptoms were reported regarding the EENT system. Neuro: Level of Consciousness is awake, alert, obeys commands, Oriented to person, place, time, situation, Appropriate for age. Cardiovascular: Capillary refill < 3 seconds Patient's skin is warm and dry. Respiratory: Airway is patent Respiratory effort is even, unlabored, Respiratory pattern is regular, symmetrical. GI: No signs and/or symptoms were reported involving the gastrointestinal system. : No signs and/or symptoms were reported regarding the genitourinary system. Derm: Bruising that is dark purple, on back. Musculoskeletal: Circulation, motion, and sensation intact. Range of motion: intact in all extremities. Historical: - Allergies: 06:06 Codeine; as9 06:06 Morphine; as9 - PMHx: 06:06 Congestive heart failure; Hypertensive disorder; hydroceohalus; Hypothyroidism; as9 - PSHx: 06:06 Coronary artery bypass graft; spinal tap for hydrocephalus; as9 - Immunization history:: Adult Immunizations up to date, Client reports receiving the 2nd dose of the Covid vaccine, Flu vaccine is up to date. - Social history:: Smoking status: Patient denies any tobacco usage or history of. - Family history:: not pertinent. Screenin:[address] [facility] ED Fall Risk Assessment (Adult) History of falling in the last 3 months, as9 including since admission Yes- single mechanical fall (1 pt) Score/Fall Risk Level 3 or more points = High Risk Oriented to surroundings, Maintained a safe environment, Educated pt \T\ family on fall prevention, incl call for assistance when getting out of bed, Assessed \T\ reinforced patient's understanding of fall precautions, Provided non-skid footwear. Abuse screen: Denies threats or abuse. Denies injuries from another. Nutritional screening: No deficits noted. Tuberculosis screening: No symptoms or risk factors identified. Assessment: 06:59 Reassessment: see triage notes assessment. as9 08:02 Reassessment: Attempted to call [employer] twice with discharge report, no answer either ko1 time. Patients caregiver is taking patient back over to [employer]. Vital Signs: 05:44 BP 174 / 48; Pulse 62; Resp 18; Pulse Ox 93% on R/A; as9 05:57 BP 184 / 44; Pulse 61; Resp 18; Temp 97.7; Pulse Ox 93% on R/A; Weight 67.13 kg; Height as9 5 ft. 2 in. ; 06:00 BP 182 / 51; Pulse 60; Pulse Ox 92% on R/A; as9 06:30 BP 185 / 51; Pulse 60; Resp 18; Pulse Ox 92% on R/A; as9 07:36 BP 162 / 48; Pulse 50; Resp 15; Pulse Ox 86% on R/A; nj1 07:40 Pulse Ox 95% on 2 lpm NC; nj1 05:57 Body Mass Index 27.07 (67.13 kg, 157.48 cm) as9 Amos Coma Score: 06:49 Eye Response: spontaneous(4). Motor Response: obeys commands(6). Verbal Response: sp4 oriented(5). Total: 15. NIH Stroke Scale Scores: 06:49 NIHSS Score: 0 sp4 ED Course: 05:47 Patient arrived in ED. lg3 05:51 Elgin Burgess MD is Attending Physician. sp4 06:06 Triage completed. as9 06:06 Arm band placed on right wrist. as9 06:12 Patient has correct armband on for positive identification. Placed in gown. Bed in low as9 position. Call light in reach. Side rails up X2. Client placed on continuous cardiac and pulse oximetry monitoring. NIBP monitoring applied. pvc monitor on. 06:12 No provider procedures requiring assistance completed. Maintain EMS IV. Dressing as9 intact. Good blood return noted. Site clean \T\ dry. Gauge \T\ site: g20 rac. 07:00 Mary Cheng RN is Primary Nurse. nj1 07:01 Attending Physician role handed off by Elgin Burgess MD rn 07:01 Toribio Galo MD is Attending Physician. rn 07:06 CT Traumagram (Head C Spine CAP wo con) In Process Unspecified. EDMS 07:38 Oxygen administration via nasal cannula \T\ 2L/min. nj1 08:01 Provided Education on: na. ko1 08:01 IV discontinued, intact, bleeding controlled, No redness/swelling at site. Pressure ko1 dressing applied. Administered Medications: 06:57 Drug: Ondansetron PO 4 mg PO once Route: PO; as9 06:57 Drug: Methocarbamol PO 750 mg PO once Route: PO; as9 06:58 Drug: Ibuprofen PO 400 mg PO once Route: PO; as9 06:58 Drug: traMADol PO 100 mg PO once Route: PO; as9 Medication: 06:12 VIS not applicable for this client. as9 Outcome: 07:49 Discharge ordered by . rn 08:01 Discharged to Sergey hammonds 08:01 Condition: stable 08:01 Discharge instructions given to patient, friend, Instructed on discharge instructions, follow up and referral plans. Demonstrated understanding of instructions, follow-up care, 08:05 Patient left the ED. ko1 NIH Stroke Scale - NIH Stroke Score Date: 12/02/2023 Time: 06:49 Total Score = 0 10. Dysarthria (speech clarity - read or repeat words) - 0(Normal) 11. Extinction and Inattention (visual/tactile/auditory/spatial/personal) - 0(No abnormality) 1a. Level of Consciousness (LOC) - 0(Alert) 1b. Level of Consciousness (LOC) (Month \T\ Age) - 0(Both) 1c. LOC Commands (Open \T\ Closes Eyes/Strike On Machine Operator) - 0(Both) 2. Best Gaze (Lateral Gaze Paresis) - 0(Normal) 3. Visual Field Loss - 0(No visual loss) 4. Facial Palsy - 0(Normal) 5a. Left Arm: Motor (10-second hold) - 0(No drift) 5b. Right Arm: Motor (10-second hold) - 0(No drift) 6a. Left Leg: Motor (5-second hold - always test supine) - 0(No drift) 6b. Right Leg: Motor (5-second hold - always test supine) - 0(No drift) 7. Limb Ataxia (finger/nose \T\ heel/villalba - test with eyes open) - 0(Absent) 8. Sensory Loss (pinprick arms/legs/face) - 0(Normal) 9. Best Language: Aphasia (description/naming/reading) - 0(No aphasia) Initials: sp4 Signatures: Dispatcher [employer] EDToribio Lopez MD MD rn Able, Lacie, RN RN lg3 Nargis Meng, JACOBY DOZIER ko1 Elgin Burgess MD MD sp4 Mary Cheng RN RN nj1 Fei Ortega RN RN as9
[2023-12-02 08:21] VITALS: BP 162/48; TEMP 97.7; O2SAT 95
== END ==
LOC: ER 05:42
DX: S30.0XXA Contusion of lower back and pelvis, initial encounter (principal); W18.30XA Fall on same level, unspecified, initial encounter; Z95.1 Presence of aortocoronary bypass graft; Z88.5 Allergy status to narcotic agent
CPT/HCPCS: 70450; 71250; 72125; Q0162